=== PATIENT | male | born 1955 ===

== ENCOUNTER → 2020-04-16 11:09 | Outpatient (BNVA) | payer SELFPAY | PROVIDERS: PCP Internal Medicine; Visit Provider Internal Medicine | DX: Z02.79 Encounter for issue of other medical certificate (principal) ==

== ENCOUNTER → 2020-05-29 09:11 | Outpatient (BNVA) | payer OTHER, SELFPAY | PROVIDERS: PCP Internal Medicine; Visit Provider Internal Medicine Cardiovascular Disease | DX: I10 Essential (primary) hypertension (principal); Z79.899 Other long term (current) drug therapy | CPT/HCPCS: 93005; 99212 ==

== ENCOUNTER 2020-07-16 07:41 | Outpatient (REF) | payer OTHER, SELFPAY | END 2020-07-16 07:42 | disposition home or self-care (01) | LOC: HO.LAB 07:41 | PROVIDERS: Visit Provider Internal Medicine | DX: Z20.822 Contact with and (suspected) exposure to COVID-19 (principal) | CPT/HCPCS: 36415; C9803; U0003; U0005 ==

== ENCOUNTER 2020-10-30 10:02 | Outpatient (REF) | payer OTHER, SELFPAY ==
--- NOTE | ~2020-10-30 | XR_ITS ---
EXAMINATION: XR KNEE, LEFT CLINICAL INFORMATION: Left knee effusion. COMPARISON: Radiographs left knee 11/09/2017 TECHNIQUE: Four views of the left knee. FINDINGS: There is small to moderate suprapatellar effusion. Hoffa's fat pad appears normal. Bony mineralization appears within limits of normal. There is no fracture, dislocation, or destructive process. There is mild narrowing medial knee joint compartment with small marginal osteophyte medial femoral condyle. Axial view patella shows no joint narrowing or erosive change. There is small lateral patellar spur. XR/XR knee LT 4V IMPRESSION: 1. Small to moderate suprapatellar effusion. 2. Mild narrowing medial knee joint compartment with small osteophyte. No erosive change. 3. No destructive process
== END 2020-10-30 10:03 | disposition home or self-care (01) ==
LOC: HO.XRAY 10:02
PROVIDERS: PCP Internal Medicine; Referring Provider Internal Medicine; Visit Provider Registered Nurse
DX: M25.462 Effusion, left knee (principal)
CPT/HCPCS: 73564

== ENCOUNTER 2020-11-05 09:01 | Outpatient (REF) | payer OTHER, SELFPAY ==
--- NOTE | ~2020-11-05 | XR_ITS ---
EXAMINATION: XR CHEST CLINICAL INFORMATION: Cough. COMPARISON: Most recent chest radiograph dated 11/12/2019. TECHNIQUE: 2 views of the chest were obtained. FINDINGS: The lungs are clear. The cardiomediastinal silhouette is normal in size. There is no pleural effusion or pneumothorax. No acute osseous abnormality. XR/XR chest 2V IMPRESSION: No acute cardiopulmonary findings.
== END 2020-11-05 09:02 | disposition home or self-care (01) ==
LOC: HO.XRAY 09:01
PROVIDERS: PCP Internal Medicine; Visit Provider Emergency Medicine
DX: R05 Cough (principal)
CPT/HCPCS: 71046

== ENCOUNTER → 2020-12-01 13:17 | Outpatient (BNVA) | payer OTHER, SELFPAY | PROVIDERS: PCP Internal Medicine; Visit Provider Nurse Practitioner Family | DX: I45.2 Bifascicular block (principal); I10 Essential (primary) hypertension | CPT/HCPCS: 93005; 99212 ==

== ENCOUNTER 2020-12-05 09:14 | Outpatient (REF) | payer OTHER, SELFPAY ==
[2020-12-05 10:43] LABS: Anion Gap 11 (12-20); Blood Urea Nitrogen 20 mg/dL (9-16); Calcium 9.6 mg/dL (8.4-10.2); Carbon Dioxide 35 mmol/L (22-29); Chloride 101 mmol/L (96-108); Estimated Glomerular Filt Rate 57; Glucose Random 110 mg/dL (60-115); Potassium 3.3 mmol/L (3.3-5.1); Sodium 144 mmol/L (135-145)
== END 2020-12-05 09:15 | disposition home or self-care (01) ==
LOC: HO.LAB 09:14
PROVIDERS: PCP Internal Medicine; Visit Provider Nurse Practitioner Family
DX: I10 Essential (primary) hypertension (principal)
CPT/HCPCS: 36415; 80048

== ENCOUNTER → 2021-01-13 13:09 | Outpatient (BNVA) | payer OTHER, SELFPAY | PROVIDERS: PCP Internal Medicine; Referring Provider Internal Medicine; Visit Provider Surgery Vascular Surgery | DX: I83.11 Varicose veins of right lower extremity with inflammation (principal) | CPT/HCPCS: 99202 ==

== ENCOUNTER 2021-01-22 12:42 | Outpatient (REF) | payer OTHER, SELFPAY ==
--- NOTE | ~2021-01-22 | US_ITS ---
EXAMINATION: BILATERAL LOWER EXTREMITY VENOUS ULTRASOUND (Reflux Exam) CLINICAL INDICATION: Bilateral lower extremity varicose veins with insufficiency. COMPARISON: Left lower extremity venous Doppler ultrasound on 03/24/2017. TECHNIQUE: Color flow triplex imaging and compression Doppler was performed to evaluate both the deep and the superficial systems bilaterally. To evaluate the superficial system, the examination was performed in the upright position. Color-flow Doppler ultrasound and compression ultrasound were utilized. In addition, maneuvers were utilized to demonstrate reflux. FINDINGS: 1. DEEP VENOUS ULTRASOUND OF THE RIGHT LOWER EXTREMITY: Common Femoral Vein: Compressible, normal respiratory variation and augmented flow. Femoral vein: Compressible, normal color flow and augmentation. Popliteal Vein: Compressible, normal augmentation. Deep Reflux: There is no evidence of reflux in the deep system in either the common femoral vein or the popliteal vein. There is no evidence of a Carnes's cyst. 2. SUPERFICIAL ULTRASOUND WITH DOPPLER OF RIGHT LOWER EXTREMITY GREAT SAPHENOUS VEIN: The great saphenous vein ranges in size from 1 mm at the ankle to 7 mm at the saphenofemoral junction. There is no evidence of reflux. DUPLICATED GREAT SAPHENOUS VEIN: None SMALL SAPHENOUS VEIN: Saphenopopliteal junction: 0.2 cm; No evidence of reflux. Mid calf: 0.2 cm; No evidence of reflux. Distal calf: 0.2 cm; No evidence of reflux. VEIN OF GIACOMINI: None Imaged. PERFORATORS: None Imaged VARICOSITIES: Mid thigh, 0.3 cm, no reflux Proximal calf, 0.3 cm, no reflux Distal calf, 0.3 cm, no reflux 3. DEEP VENOUS ULTRASOUND OF THE LEFT LOWER EXTREMITY: Common Femoral Vein: Compressible, normal respiratory variation and augmented flow. Femoral vein: Compressible, normal color flow and augmentation. Popliteal Vein: Compressible, normal augmentation. Deep Reflux: There is no evidence of reflux in the deep system in either the common femoral vein or the popliteal vein. There is no evidence of a Carnes's cyst. 4. SUPERFICIAL ULTRASOUND WITH DOPPLER OF LEFT LOWER EXTREMITY GREAT SAPHENOUS VEIN: Great saphenous vein ranges in size from 2 mm at the ankle to 6 mm at the junction. There is segmental reflux below the knee measuring up to 3.3 seconds. DUPLICATED GREAT SAPHENOUS VEIN: Medial, 0.4 cm at the junction without evidence of reflux. SMALL SAPHENOUS VEIN: Saphenopopliteal junction: 0.2 cm; No evidence of reflux. Mid calf: 0.1 cm; No evidence of reflux. Distal calf: 0.1 cm; No evidence of reflux. VEIN OF GIACOMINI: None Imaged. PERFORATORS: Distal calf, 0.2 cm, no reflux. VARICOSITIES: Midcalf, 0.6 cm, no reflux. US/US venous duplex LE BI IMPRESSION: Segmental reflux involving the left great saphenous vein below the knee. Bilateral nonrefluxing varicosities. No evidence of DVT or deep venous insufficiency.
== END 2021-01-22 12:43 | disposition home or self-care (01) ==
LOC: HO.US 12:42
PROVIDERS: PCP Internal Medicine; Visit Provider Surgery Vascular Surgery
DX: I83.893 Varicose veins of bilateral lower extremities with other complications (principal)
CPT/HCPCS: 93970

== ENCOUNTER 2021-02-08 22:41 | Emergency (ER) | payer OTHER, SELFPAY ==
[2021-02-08 22:49] VITALS: BP 171/98; PULSE 69; RESP 16; TEMP 36.6; O2SAT 99; BMI 24.3
--- NOTE | 2021-02-08 23:50 | ED_ITS ---
HPI - General Adult General Chief complaint: General Medical Stated complaint: high blood pressure Time Seen by Provider: 02/08/21 23:50 Source: patient Mode of arrival: ambulatory Limitations: no limitations History of Present Illness HPI narrative: Patient has history of hypertension for a long time used to be on lisinopril 40 mg and amlodipine 5 mg blood pressure was uncontrolled for perinatal coordinator change the medication to losartan 50 mg daily metoprolol 25 mg and spironolactone but patient still blood pressure is uncontrolled check the blood pressure at home was 164/102 on arrival was 171/98 complaining of mild discomfort in the head for last few hours no nausea no vomiting no chest pain or palpitation Related Data Home Medications Medication Instructions Recorded Confirmed metoprolol succinate 25 mg 25 mg PO DAILY 05/29/20 12/01/20 tablet,extended release 24 hr omeprazole 20 mg capsule,delayed 20 mg PO DAILY 05/29/20 12/01/20 release baclofen 10 mg tablet 10 mg PO BID PRN 12/01/20 12/01/20 chlorthalidone 25 mg tablet 25 mg PO DAILY 12/01/20 12/01/20 lisinopril 40 mg tablet 40 mg PO DAILY 12/01/20 12/01/20 Previous Rx's Medication Instructions Recorded losartan 25 mg tablet 25 mg PO QPM #30 tab 02/09/21 Allergies Allergy/AdvReac Type Severity Reaction Status Date / Time No Known Allergies Allergy Verified 02/08/21 22:49 [No Known Allergies*] Review of Systems Review of Systems: Yes all other systems are reviewed and are negative [facility] Past Medical History Medical History Bifascicular block Hypertension Lymphoma Family History Family History Mother Recurrent strokes Father Heart disease History of throat cancer Social History Social History Alcohol intake: current Alcohol intake frequency: holidays/special occasions only Patient Tobacco Use Status: Never used Tobacco Advance Directives: No Physical Exam Vital Signs: Vital Signs: Last Vital Signs Temp 97.9 F 02/08/21 22:49 Pulse 53 02/09/21 01:00 Resp 18 02/09/21 01:00 BP 161/93 H 02/09/21 01:00 Pulse Ox 98 02/09/21 00:26 Body Mass Index 24.3 Appearance: Alert. Oriented X3. No acute distress. Eyes: No pallor or icterus ENT: Pharynx normal. Oral Mucosa moist Neck: Normal inspection. Neck supple. CVS: Normal heart rate and rhythm. Pulses normal. Respiratory: No respiratory distress. Equal air entry bilateral, no wheezing/rales/rhonchi Abdomen: Soft and nontender. Bowel sounds are present, no mass palpable, Skin: Skin warm and dry. Normal skin color. Normal skin turgor. Extremities: No lower extremity edema. No calf tenderness Neuro: Oriented X 3. Course Reevaluation(s) Reevaluation #1: Patient feeling much better now blood pressure improved to 151/95 after losartan 25 mg. Will increase the dose of losartan to 50 in the morning 25 in the p.m. and advised to follow with perinatal coordinator Time: 01:04 Discharge Plan Discharge Clinical Impression: Hypertension Qualifiers: Hypertension type: primary hypertension Qualified Code(s): I10 - Essential (primary) hypertension Patient Disposition: Home, Self-Care Instructions: Hypertension (ED) Additional Instructions: Increase the dose of losartan to 50 mg in the morning and 25 mg in the evening Continue remaining medication as prescribed Follow-up with your perinatal coordinator for further management of high blood pressure in next 1 week Aumentar la dosis de losart?n a 50 mg por la ma?phi y 25 mg por la noche. Contin?e con la medicaci?n restante seg?n lo prescrito Dinorah un seguimiento con baca nefr?logo para un mayor control de la presi?n arterial henny en la pr?xima semana Prescriptions: New losartan 25 mg tablet 25 mg PO QPM Qty: 30 RF: 0 No Action metoprolol succinate 25 mg tablet extended release 24 hr 25 mg PO DAILY RF: 0 omeprazole 20 mg capsule,delayed release(DR/EC) 20 mg PO DAILY RF: 0 chlorthalidone 25 mg tablet 25 mg PO DAILY RF: 0 lisinopril 40 mg tablet 40 mg PO DAILY RF: 0 baclofen 10 mg tablet 10 mg PO BID PRN (Reason: muscle spasm) RF: 0 Print Language: Brazilian
[2021-02-09 00:26] VITALS: BP 151/95; PULSE 61; RESP 14; O2SAT 98
[2021-02-09 00:28] VITALS: BP 151/95; PULSE 60
[2021-02-09] MEDS: Losartan Potassium 25 MG TABLET PO (00:28)
[2021-02-09 01:00] VITALS: BP 161/93; PULSE 53; RESP 18
[2021-02-09 01:53] VITALS: BP 151/94; PULSE 53; RESP 14; O2SAT 98
== END 2021-02-09 01:58 | disposition home or self-care (01) ==
PROVIDERS: Emergency Provider Internal Medicine; PCP Internal Medicine
DX: I10 Essential (primary) hypertension (principal); Z79.899 Other long term (current) drug therapy
CPT/HCPCS: 99283; 99284

== ENCOUNTER → 2021-02-10 14:07 | Outpatient (BNVA) | payer OTHER, SELFPAY | PROVIDERS: PCP Internal Medicine; Visit Provider Surgery Vascular Surgery | DX: I83.11 Varicose veins of right lower extremity with inflammation (principal) | CPT/HCPCS: 99212 ==

== ENCOUNTER → 2021-03-30 14:02 | Outpatient (BNVA) | payer OTHER, SELFPAY | PROVIDERS: PCP Internal Medicine; Referring Provider Internal Medicine; Visit Provider Internal Medicine Cardiovascular Disease | DX: I45.2 Bifascicular block (principal); I10 Essential (primary) hypertension | CPT/HCPCS: 93005; 99212 ==

== ENCOUNTER → 2021-04-14 08:40 | Outpatient (BNVA) | payer SELFPAY | PROVIDERS: PCP Internal Medicine; Visit Provider Internal Medicine | DX: Z02.79 Encounter for issue of other medical certificate (principal) ==

== ENCOUNTER 2021-08-10 10:57 | Emergency (ER) | payer OTHER, SELFPAY ==
[2021-08-10 13:33] VITALS: BP 169/95; PULSE 61; RESP 16; TEMP 36.9; O2SAT 98; BMI 24.6
[2021-08-10 14:16] LABS: COVID-19 Test Negative (Negative); IDNOW Serial# 16C4AD1C
[2021-08-10 14:38] LABS: IDNOW Serial# 16C4AD1C; Influenza A Negative (Negative); Influenza B2 Negative (Negative)
--- NOTE | 2021-08-10 14:46 | ED_ITS ---
HPI - URI/Sore Throat General Chief Complaint: General Medical Stated Complaint: Earache/ Sore throat Time Seen by Provider: 08/10/21 14:17 Source: patient Mode of arrival: ambulatory Limitations: language barrier (Yakut-speaking) History of Present Illness HPI Narrative: 66-year-old male presenting to the ED with complaints of 4 days of subjective fevers, chills, fatigue, malaise, body aches, left-sided ear pain, right-sided ear itchiness and a sore throat. Reports that he is vaccinated to COVID. Denies recent travel or sick contacts. Denies any measured fevers, dizziness, headaches, neck pain/stiffness, trouble swallowing or breathing, loss of taste or smell, sputum production, chest pain or shortness of breath, dyspnea on exertion, orthopnea, nausea/vomiting/diarrhea constipation, black or bloody stools, abdominal pain, rashes, lower extremity edema or calf tenderness or any other symptoms complaints or concerns at this time. MD elicited complaint: fever and sore throat Onset (ago): day(s) (4) Consistency: constant and progressively worsening Severity: moderate Able to tolerate fluids by mouth: Yes Exacerbating factors: swallowing Relieving factors: nothing Associated symptoms: fever, chills, myalgias, sore throat, cough and ear pain Treatments prior to arrival: none Related Data Home Medications Medication Instructions Recorded Confirmed metoprolol succinate 25 mg 25 mg PO DAILY 05/29/20 03/30/21 tablet,extended release 24 hr omeprazole 20 mg capsule,delayed 20 mg PO DAILY 05/29/20 03/30/21 release baclofen 10 mg tablet 10 mg PO BID PRN 12/01/20 03/30/21 losartan 50 mg tablet 1 tab PO DAILY 02/09/21 03/30/21 spironolactone 25 0.5 tab PO DAILY tab 03/30/21 03/30/21 mg-hydrochlorothiazide 25 mg tablet Previous Rx's Medication Instructions Recorded losartan 25 mg tablet 25 mg PO QPM #30 tab 02/09/21 amoxicillin 875 mg-potassium 1 tab PO BID 7 Days #14 tab 08/10/21 clavulanate 125 mg tablet Allergies Allergy/AdvReac Type Severity Reaction Status Date / Time vitamin E (d-alpha Allergy Itching Verified 08/10/21 13:35 tocopherol) Review of Systems Review of Systems: Constitutional : + subjective fevers/ chills/fatigue/malaise, No Weight loss, No Night Sweats ENT/Mouth : + sore throat, + right-sided ear itchiness and left-sided ear pain, No Hearing loss, No Nasal Congestion, No Sinus Pain, No Hoarseness, No Rhinorrhea, No Swallowing Difficulty Eyes: No Eye Pain, No Swelling, No Redness, No Foreign Body, No Discharge, No Vision Changes Cardiovascular : No Chest Pain, No SOB, No Dyspnea on Exertion, No Orthopnea, No Edema, No Palpitations Respiratory : + Cough, No Sputum, No Wheezing, No Smoke Exposure, No Dyspnea Gastrointestinal : No Nausea, No Vomiting, No Diarrhea, No Constipation, No abdominal Pain, No Hematochezia, No Melena Genitourinary : no irregular bleeding, No Dysuria, No Urinary Frequency, No Hematuria, No Urinary Incontinence, No Urgency, No Flank Pain, No Urinary Flow Changes, No Hesitancy Musculoskeletal : No joint pain, + Myalgias, No Joint Swelling Skin : No Skin Lesions, No rash Neuro : No Weakness, No Numbness, No Paresthesias, No Loss of Consciousness, No Dizziness, No Headache Psych : No Anxiety/Panic, No Depression, No SI/HI/AH/VH, No Social Issues, Heme/Lymph: No Bruising, No Bleeding,No Lymphadenopathy Endocrine : No Polyuria, No Polydipsia, No Temperature Intolerance Yes all other systems are reviewed and are negative [facility] Past Medical History Attestation statement: The following information was validated with the patient. Medical History Bifascicular block Hypertension Lymphoma Surgical History No pertinent past surgical history Family History Family History Mother Recurrent strokes Father Heart disease History of throat cancer Social History Social History Alcohol intake: current Alcohol intake frequency: holidays/special occasions only Patient Tobacco Use Status: Never used Tobacco Advance Directives: No Advance Directives Information Provided: No Physical Exam Vital Signs: Vital Signs: Last Vital Signs Temp 98.5 F 08/10/21 13:33 Pulse 61 08/10/21 13:33 Resp 16 08/10/21 13:33 BP 169/95 H 08/10/21 13:33 Pulse Ox 98 08/10/21 13:33 BMI result Body Mass Index 24.6 vital signs have been reviewed as normal and appeared to be correct. Blood pressure 169/95. Heart rate normal. Respiration rate normal. Temperature normal. Oxygen saturation normal. Appearance: Alert. Oriented X3. No acute distress. Head: Normal external exam. Normocephalic. Atraumatic. Eyes: PERRLA. EOMI. Conjunctiva and sclera normal. Eyelids normal. ENT: EAC normal. TM's Normal. Posterior pharynx mildly erythematous. Soft and hard palate within normal limits. No exudate is noted. Uvula is midline not deviated. Moist mucous membranes. No lesions/ulcerations or masses noted on the tongue. Normal voice. No trismus noted. No drooling noted. No muffled voice noted. Neck: Normal inspection. Neck supple. FROM. No adenopathy. Thyroid Normal. No tracheal deviation noted. No crepitus is noted. No meningeal signs. No neck mass noted. No signs of trauma noted. CVS: Normal heart rate and rhythm. Heart sound normal. Pulses normal throughout. No murmurs/rales/gallops. Respiratory: No respiratory distress. Painless inspiration. Breath sounds normal. No wheezes/rales/rhonchi noted. Chest nontender. No crepitus is noted. No signs of trauma noted. No accessory muscle usage noted or decreased air movement noted. No signs of trauma. Back: Full range of motion noted. Nontender. Skin: Skin warm and dry. Normal skin color. Normal skin turgor. No rashes/lesions/lacerations noted. Extremities: Extremities exhibit normal range of motion and nontender. Neuro: Oriented X 3. No motor deficit. No sensory deficit. Reflexes normal. Normal steady gait. No focal neuro deficits noted. CN's II-XII intact bilaterally? Vascular: + radial pulses Normal cap refill. No cyanosis noted to upper extremity nails Course Course Course Narrative: 66-year-old male presenting to the ED with complaints of 4 days of subjective fevers, chills, fatigue, malaise, body aches, left-sided ear pain, right-sided ear itchiness and a sore throat. Reports that he is vaccinated to COVID. Denies recent travel or sick contacts. Denies any measured fevers, dizziness, headaches, neck pain/stiffness, trouble swallowing or breathing, loss of taste or smell, sputum production, chest pain or shortness of breath, dyspnea on exertion, orthopnea, nausea/vomiting/diarrhea constipation, black or bloody sto ols, abdominal pain, rashes, lower extremity edema or calf tenderness or any other symptoms complaints or concerns at this time. Patient negative for COVID and flu. Will test for strep and treat for upper respiratory infection/pharyngitis possibly. Along with instructions return if any new or worsening symptoms to follow up with primary care provider. And to return if any new or worsening symptoms. Patient understands agrees with this plan. MDM - URI/Sore Throat Medical Records Attestation: I reviewed the patient's medical records. Lab Data Attestation: I reviewed the patient's lab results. Labs: Lab Results 08/10/21 08/10/21 Range/Units 13:39 13:39 COVID-19 ([facility]) Negative (Negative) COVID-19 Clin Com See Note Influenza Type A ([facility]) Negative (Negative) Influenza Type B ([facility]) Negative (Negative) Influenza A & B Note See Note Discharge Plan Discharge Clinical Impression: Pharyngitis Patient Disposition: Home, Self-Care Instructions: Pharyngitis (ED) Prescriptions: New amoxicillin-pot clavulanate 875-125 mg tablet 1 tab PO BID 7 Days Qty: 14 0RF No Action losartan 25 mg tablet 25 mg PO QPM Qty: 30 0RF losartan 50 mg tablet 1 tab PO DAILY 0RF spironolacton-hydrochlorothiaz 25-25 mg tablet 0.5 tab PO DAILY 0RF metoprolol succinate 25 mg tablet extended release 24 hr 25 mg PO DAILY 0RF omeprazole 20 mg capsule,delayed release(DR/EC) 20 mg PO DAILY 0RF baclofen 10 mg tablet 10 mg PO BID PRN (Reason: muscle spasm) 0RF Referrals: Julio Egan MD [Primary Care Provider] - Print Language: Yakut
[2021-08-10 15:20] LABS: Strep A Nucleic Acid Negative (Negative)
== END 2021-08-10 15:04 | disposition home or self-care (01) ==
PROVIDERS: Physician Assistant Medical; Emergency Provider Emergency Medicine; PCP Internal Medicine
DX: J02.9 Acute pharyngitis, unspecified (principal); H92.02 Otalgia, left ear; R50.9 Fever, unspecified; M79.10 Myalgia, unspecified site; Z20.822 Contact with and (suspected) exposure to COVID-19; Z79.899 Other long term (current) drug therapy
CPT/HCPCS: 36415; 87502; 87635; 87651; 99283

== ENCOUNTER 2021-12-30 09:43 | Outpatient (REF) | payer OTHER, SELFPAY ==
--- NOTE | ~2021-12-30 | XR_ITS ---
EXAMINATION: XR CHEST CLINICAL INFORMATION: Acute cough. COMPARISON: Chest 11/05/2020 TECHNIQUE: 2 views of the chest were obtained. FINDINGS: No significant abnormality is noted involving the heart, lungs, mediastinum, bony thorax or soft tissues. XR/XR chest 2V IMPRESSION: Unremarkable chest exam. No change from 11/05/2020
== END 2021-12-30 09:44 | disposition home or self-care (01) ==
LOC: HO.XRAY 09:43
PROVIDERS: Absent Provider Internal Medicine; PCP Internal Medicine; Visit Provider Nurse Practitioner Primary Care
DX: R05.1 Acute cough (principal)
CPT/HCPCS: 71046

== ENCOUNTER → 2022-03-31 13:26 | Outpatient (BNVA) | payer OTHER, SELFPAY | PROVIDERS: PCP Internal Medicine; Referring Provider Internal Medicine; Visit Provider Internal Medicine Cardiovascular Disease | DX: I45.2 Bifascicular block (principal); I10 Essential (primary) hypertension | CPT/HCPCS: 93005; 99212 ==

== ENCOUNTER → 2022-04-12 10:49 | Outpatient (BNVA) | payer SELFPAY | PROVIDERS: PCP Internal Medicine; Visit Provider Internal Medicine | DX: Z02.79 Encounter for issue of other medical certificate (principal) ==

== ENCOUNTER 2022-06-30 11:38 | Inpatient (IN) | payer OTHER, SELFPAY ==
--- NOTE | ~2022-06-30 | CT_ITS ---
EXAMINATION: CT ABDOMEN AND PELVIS WITHOUT CONTRAST CLINICAL INFORMATION: Left-sided abdominal pain COMPARISON: 02/17/2019 TECHNIQUE: Multidetector volumetric imaging was performed from the superior aspect of the liver through the pubic symphysis. Sagittal and coronal reformatted images were obtained on the technologist's workstation. This CT examination was performed using dose optimization techniques as appropriate, variously including the following: *Automated exposure control *Adjustment of mA and/or kV according to patient size (this includes techniques or standardized protocols for targeted exams where dose is matched to indication/reason for exam; i.e. extremities or head) *Use of iterative reconstruction technique DLP: 415 mGy-cm FINDINGS: LUNG BASES: The visualized lung bases are unremarkable. LIVER, GALLBLADDER, AND BILIARY TREE: The superior aspect the liver is not imaged. Otherwise small low-density structure seen centrally near the robin. There was a small density seen here previously. This may be an enlarging cyst. The lesion cannot be completely excluded. Measures 7 mm. Status post cholecystectomy PANCREAS: Unremarkable. SPLEEN: Unremarkable. ADRENAL GLANDS: Unremarkable. KIDNEYS AND URETERS: 6 mm calculus in the proximal left ureter. This is not causing significant obstruction of the kidney. BLADDER: Unremarkable. GASTROINTESTINAL TRACT: The bowel pattern appears nonobstructing. The appendix is within normal limits. ABDOMINAL WALL: No significant hernia is appreciated. LYMPH NODES: Some shotty nodes once again seen here. No evidence for bulky adenopathy. Mildly prominent mesenteric nodes. VASCULAR: Mild atherosclerotic changes PELVIC VISCERA: Prominent prostate with calcifications. OSSEOUS STRUCTURES: Unremarkable. CT/CT abdomen pelvis wo IV con IMPRESSION: Findings as described above. 6 mm calculus within the proximal left ureter. This is not causing significant obstruction. The bowel pattern is felt to be nonobstructing. There is no free fluid here. No suspicious soft tissue stranding is noted. Fleischner guidelines were followed.
--- NOTE | ~2022-06-30 | FL_ITS ---
EXAMINATION: XR FLUOROSCOPY WITH IMAGES CLINICAL INFORMATION: Cystoscopy, ureteroscopy, laser, possible stent. Left urinary tract calculus. COMPARISON: CT abdomen and pelvis noncontrast 06/30/2022. TECHNIQUE: Fluoroscopy Supervised By: Dr. Thony Walker. Fluoroscopy Time: 16 seconds. Cumulative Dose: 3.37 mGy. Images: 2. FINDINGS: Initial image shows guidewire in the left collecting system with some contrast showing no hydronephrosis or extravasation. Follow-up image shows left stent overlying left renal fossa. FL/FL guidance in OR IMPRESSION: Fluoroscopy for urologic procedures.
[2022-06-30 11:55] VITALS: BP 121/90; PULSE 86; RESP 16; TEMP 36.5; O2SAT 99; BMI 22.8
--- NOTE | 2022-06-30 11:55 | ED.NAVMDI ---
HPI - Nausea/Vomiting/Diarrhea General Chief complaint: Nausea/Vomiting/Diarrhea <ISH Reyes Last Filed: 06/30/22 18:54> Stated complaint: Cough/Diarrhea/Abd pain <ISH Reyes Last Filed: 06/30/22 18:54> Time Seen by Provider: 06/30/22 14:24 <ISH Reyes Last Filed: 06/30/22 18:54> Source: patient <ISH Malagon Last Filed: 06/30/22 17:09> Mode of arrival: ambulatory <ISH Malagon Last Filed: 06/30/22 17:09> History of Present Illness HPI Narrative: 66-year-old male with a past medical history of hypertension, lymphoma, presenting to the ED complaining of URI symptoms since Tuesday taking Zyrtec without relief, followed by nausea, lower abdominal pain, & watery nonbloody diarrhea since Tuesday. Reports 2-3 episodes daily with anorexia and decreased p.o. intake. Admit saw PCP on Tuesday who prescribed Azithromycin which did not help symptoms. Denies fever, chills, dysuria/hematuria, flank pain, suspicious food intake, sick contacts <ISH Malagon Last Filed: 06/30/22 17:09> MD elicited complaint: nausea, diarrhea and abdominal pain <ISH Malagon Last Filed: 06/30/22 17:09> Related Data Home medications: Home Medications Medication Instructions Recorded Confirmed omeprazole 20 mg capsule,delayed 20 mg PO DAILY 05/29/20 06/30/22 release losartan 100 mg tablet 100 mg PO DAILY 03/31/22 06/30/22 metoprolol succinate 100 mg 100 mg PO DAILY 03/31/22 06/30/22 tablet,extended release 24 hr nifedipine 30 mg tablet,extended 30 mg PO DAILY 03/31/22 06/30/22 release spironolactone 25 mg tablet 25 mg PO DAILY 03/31/22 06/30/22 ammonium lactate 12 % topical cream 1 appl topical NEEDED PRN Dry 06/30/22 06/30/22 Skin azithromycin 250 mg tablet 250 mg PO DAILY 06/30/22 06/30/22 cetirizine 10 mg tablet 1 tab PO DAILY PRN itch 06/30/22 06/30/22 cholecalciferol (vitamin D3) 25 25 mcg PO DAILY 06/30/22 06/30/22 mcg (1,000 unit) tablet magnesium 200 mg tablet 200 mg PO DAILY 06/30/22 06/30/22 multivitamin (Daily Multi-Vitamin 1 tab PO DAILY 06/30/22 06/30/22 tablet) <ISH Reyes - Last Filed: 06/30/22 18:54> Allergies/Adverse reactions: Allergies Allergy/AdvReac Type Severity Reaction Status Date / Time vitamin E (d-alpha Allergy Itching Verified 06/30/22 12:00 tocopherol) <ISH Reyes Last Filed: 06/30/22 18:54> Review of Systems Review of Systems: Constitutional:No Fever, No Chills, No Night Sweats, No Fatigue, No Malaise ENT/Mouth: No Hearing loss, No Ear Pain, No No sore throat, No Rhinorrhea, No Swallowing Difficulty Eyes: No Eye Pain, No Swelling, No Redness Cardiovascular: No Chest Pain, No SOB, No Edema, No Palpitations Respiratory: No Cough, No Sputum, No Dyspnea Gastrointestinal: + Nausea, No Vomiting, + Diarrhea, No Constipation, + Abdominal pain, No Hematochezia, No Melena Genitourinary: No Dysuria, No Urinary Frequency, No Hematuria, No Urinary Incontinence/retention, No Urgency, No Flank Pain, No Urinary Flow Changes Musculoskeletal: No joint pain, No Myalgias, No Joint Swelling Skin: No Skin Lesions, No rash Neuro: No Weakness, No Numbness, No Loss of Consciousness, No Dizziness, No Headache <ISH Malagon Last Filed: 06/30/22 17:09> Yes all other systems are reviewed and are negative <ISH Malagon Last Filed: 06/30/22 17:09> Constitutional: Constitutional: Reports as per HPI <ISH Malagon Last Filed: 06/30/22 17:09> PMFSH Past Medical History Attestation statement: The following information was validated with the patient. <ISH Malagon Last Filed: 06/30/22 17:09> Medical History: Medical History Bifascicular block Hypertension Lymphoma <ISH Reyes - Last Filed: 06/30/22 18:54> Surgical History: Surgical History No pertinent past surgical history <ISH Reyes - Last Filed: 06/30/22 18:54> Family History Family History: Family History Mother Recurrent strokes Father Heart disease History of throat cancer <ISH Reyes - Last Filed: 06/30/22 18:54> Social History Social History: Social History Alcohol intake: unknown Patient Tobacco Use Status: Never used Tobacco Smoked in Last 30 Days: No Use of substances other than those prescribed or required for medical reasons: Unknown Advance Directives: No Advance Directives Information Provided: No <ISH Reyes - Last Filed: 06/30/22 18:54> Physical Exam Vital Signs: Vital Signs: Last Vital Signs Temp 97.7 F 06/30/22 11:55 Pulse 86 06/30/22 11:55 Resp 16 06/30/22 11:55 BP 121/90 H 06/30/22 11:55 Pulse Ox 99 06/30/22 11:55 O2 Del Method 06/30/22 11:55 BMI result Body Mass Index 22.8 <ISH Reyes - Last Filed: 06/30/22 18:54> Vital Signs: Last Vital Signs Temp 97.7 F 06/30/22 11:55 Pulse 86 06/30/22 11:55 Resp 16 06/30/22 11:55 BP 121/90 H 06/30/22 11:55 Pulse Ox 99 06/30/22 11:55 O2 Del Method 06/30/22 11:55 BMI result Body Mass Index 22.8 <ISH Malagon - Last Filed: 06/30/22 17:09> Const: General: cooperative, healthy appearing and no acute distress <ISH Malagon - Last Filed: 06/30/22 17:09> Orientation/consciousness: patient oriented x3 <ISH Malagon Last Filed: 06/30/22 17:09> Limitations: no limitations <Akilah Vanebay PA - Last Filed: 06/30/22 17:09> HEENT: Head: Yes normal to inspection and Yes atraumatic <Akilah Vanebay PA - Last Filed: 06/30/22 17:09> Ears: hearing grossly normal bilaterally <Akilah Davis PA - Last Filed: 06/30/22 17:09> General nose exam: Normal external nose present <Akilah Davis PA - Last Filed: 06/30/22 17:09> Face and sinus: Yes normal facial exam <Akilah Davis PA - Last Filed: 06/30/22 17:09> Eyes: General: appearance normal, both eyes and all related structures <Akilah Davis PA - Last Filed: 06/30/22 17:09> EOM: EOMs intact bilaterally <kAilah Davis PA - Last Filed: 06/30/22 17:09> Neck: Neck: Yes normal visual inspection and Yes no meningeal signs <Akilah Davis PA - Last Filed: 06/30/22 17:09> Resp: Effort & Inspection: normal respiratory effort and no respiratory distress <Akilah Davis PA - Last Filed: 06/30/22 17:09> Auscultation: clear to auscultation bilaterally, no crackles and no rhonchi <Akilah Davis PA - Last Filed: 06/30/22 17:09> Cardio: Rate: regular rate <Akilah Davis PA - Last Filed: 06/30/22 17:09> Heart sounds: S1 normal heart sound present and S2 normal heart sound present <Akilah Davis PA - Last Filed: 06/30/22 17:09> GI: Inspection: Yes normal to inspection <Akilah Davis PA - Last Filed: 06/30/22 17:09> Palpation (GI): Soft to palpation, Tenderness to palpation present (GI) in the LLQ; with no rebound tenderness, no guarding and not rigid <Akilah Davis PA - Last Filed: 06/30/22 17:09> : General: Yes no CVA tenderness <ISH Malagon - Last Filed: 06/30/22 17:09> Back/Spine/Pelvis: Back: no CVA tenderness <ISH Malagon - Last Filed: 06/30/22 17:09> Skin: Rashes: no rashes <ISH Malagon - Last Filed: 06/30/22 17:09> Wounds: no wounds <ISH Malagon - Last Filed: 06/30/22 17:09> Neuro: General: patient oriented x3, tone normal and no meningeal signs <ISH Malagon Last Filed: 06/30/22 17:09> Gait exam (Neuro): Normal gait present <ISH Malagon Last Filed: 06/30/22 17:09> Extrem: General: Yes normal to inspection <ISH Malagon Last Filed: 06/30/22 17:09> Course Course Course Narrative: RME - 66 yo Italian speaking male presents to the ER for evaluation of 5 days of watery diarrhea, about 6 episodes her day. He was given abx for the diarrhea by his doctor 3 days ago. Reports intermittent diffuse abd pains, no nausea or vomiting. He feels weak. Plan: labs, GI panel/Cdiff if able, CT abd/pelvis given left sided tenderness on exam in triage. <ISH Reyes - Last Filed: 06/30/22 18:54> RME - 66 yo Italian speaking male presents to the ER for evaluation of 5 days of watery diarrhea, about 6 episodes her day. He was given abx for the diarrhea by his doctor 3 days ago. Reports intermittent diffuse abd pains, no nausea or vomiting. He feels weak. Plan: labs, GI panel/Cdiff if able, CT abd/pelvis given left sided tenderness on exam in triage. -1545--no leukocytosis. H&H stable. + FLORESITA with a BUN of 27 and creatinine of 1.59. Mild transaminitis. CT abdomen pelvis wo IV con IMPRESSION: Findings as described above. 6 mm calculus within the proximal left ureter. This is not causing significant obstruction. ? The bowel pattern is felt to be nonobstructing. There is no free fluid here. No suspicious soft tissue stranding is noted.? ? Fleischner guidelines were followed. > will consult Urology, Dr. Walker who recommended rehydration and re-evaluate patient's status. If no improvement admit to Medicine and Urology can perform procedure tomorrow -1704--Dr. Walker evaluated patient in the ED & recommends admission and likely procedure tomorrow. NPO at midnight <ISH Malagon - Last Filed: 06/30/22 17:09> Medications Administered Discontinued Medications Generic Name Dose Route Start Last Admin Trade Name Freq PRN Reason Stop Dose Admin Lactated Ringer's 1,000 mls @ 999 mls/hr 06/30/22 14:45 06/30/22 15:51 Lr IV 06/30/22 15:45 Infused .Q1H1M FARAZ Infusion Lactated Ringer's 1,000 mls @ 999 mls/hr 06/30/22 14:45 06/30/22 17:38 Lr IV 06/30/22 15:45 Infused .Q1H1M FARAZ Infusion Ketorolac Tromethamine 15 mg 06/30/22 15:46 06/30/22 16:12 Ketorolac Tromethamine 15 Mg/Ml Vial IVPUSH 06/30/22 15:47 15 mg ONCE ONE Administration <ISH Reyes - Last Filed: 06/30/22 18:54> Medications Administered Discontinued Medications Generic Name Dose Route Start Last Admin Trade Name Freq PRN Reason Stop Dose Admin Lactated Ringer's 1,000 mls @ 999 mls/hr 06/30/22 14:45 06/30/22 15:51 Lr IV 06/30/22 15:45 Infused .Q1H1M FARAZ Infusion Lactated Ringer's 1,000 mls @ 999 mls/hr 06/30/22 14:45 06/30/22 17:38 Lr IV 06/30/22 15:45 Infused .Q1H1M FARAZ Infusion Ketorolac Tromethamine 15 mg 06/30/22 15:46 06/30/22 16:12 Ketorolac Tromethamine 15 Mg/Ml Vial IVPUSH 06/30/22 15:47 15 mg ONCE ONE Administration <ISH Malagon - Last Filed: 06/30/22 17:09> Medical Decision Making Medical Decision Making MDM Narrative: 66-year-old male with a past medical history of hypertension, lymphoma, presenting to the ED complaining of URI symptoms since Tuesday taking Zyrtec without relief, followed by nausea, lower abdominal pain, & watery nonbloody diarrhea since Tuesday. On exam vital signs stable, NAD, nontoxic appearing, abdomen soft with left lower quadrant tenderness, no rebound or guarding, no CVAT. Concern for viral syndrome/gastroenteritis vs diverticulitis or colitis vs metabolic abnormalities including dehydration. Rule out UTI. Lower suspicion for appendicitis/cholecystitis/lithiasis or pancreatitis at this time. C diff on differential Plan: Labs, UA, stool studies/C diff, CT AP, IVF, p.o. challenge Please refer to course for remaining clinical decision making, interpretation of labs/imaging results, and discussions with consultants and/or family members. <ISH Malagon - Last Filed: 06/30/22 17:09> Differential Diagnosis Differential Diagnoses: The differential diagnosis associated with the presentation includes <ISH Malagon - Last Filed: 06/30/22 17:09> as above <ISH Malagon - Last Filed: 06/30/22 17:09> Admission/Observation Consideration of admission/observation: Escalation of care including admission/observation considered <ISH Malagon - Last Filed: 06/30/22 17:09> Consult Healthcare Provider Management of the patient was discussed with: Acid Patroller <ISH Malagon - Last Filed: 06/30/22 17:09> Lab Data MDM Lab Attestation statement: I reviewed the patient's lab results. <ISH Malagon - Last Filed: 06/30/22 17:09> Result Diagrams: 06/30/22 12:12 06/30/22 12:12 <ISH Reyes - Last Filed: 06/30/22 18:54> Labs: Lab Results 06/30/22 06/30/22 06/30/22 Range/Units 12:12 12:12 16:01 WBC 5.9 (4.8-10.8) X10*3/uL RBC 4.72 (4.60-5.80) X10*6/uL Hgb 15.8 (14.0-18.0) g/dl Hct 45.1 (42.0-52.0) % MCV 95.6 (80.0-98.0) fL MCH 33.5 H (27.0-33.0) pg MCHC 35.0 (31.0-36.0) g/dl RDW 12.0 (11.0-16.0) % Plt Count 161 (160-400) X10*3/uL MPV 10.3 (9.4-12.4) fL Immature Gran % (Auto) 0.5 H (0.0-0.4) % Neut % (Auto) 53.9 (45-73) % Lymph % (Auto) 32.3 (20-40) % Ware % (Auto) 10.4 (2-11) % Eos % (Auto) 2.6 (0-4) % Baso % (Auto) 0.3 (0-2) % Lymph # (Auto) 1.9 (1.2-4.9) X10*3/uL Ware # (Auto) 0.6 (0.1-1.2) X10*3/uL Eos # (Auto) 0.2 (0.0-0.4) X10*3/uL Baso # (Auto) 0.0 (0.0-0.2) X10*3/uL Abs Immat Gran (auto) 0.03 (0.00-0.03) X10*3/uL Absolute Neuts (auto) 3.2 (2.0-8.3) x10*3/uL Absolute Nucleated RBC 0.000 (0.0-0.012) X10*3/uL Nucleated RBC % (auto) 0.0 (0.0-0.2) /100WBC Sodium 142 (135-145) mmol/L Potassium 4.2 D (3.3-5.1) mmol/L Chloride 108 (96-108) mmol/L Carbon Dioxide 26 (22-29) mmol/L Anion Gap 12 (12-20) BUN 27 H (9-16) mg/dL Creatinine 1.59 H (0.5-1.4) mg/dL Estim Creat Clear Calc 46.6 Estimated GFR 44 Random Glucose 107 (60-115) mg/dL Calcium 9.0 D (8.4-10.2) mg/dL Magnesium 1.7 (1.6-2.6) mg/dL Total Bilirubin 0.8 (0.0-1.0) mg/dL Direct Bilirubin 0.2 (0.0-0.5) mg/dL AST 39 H (5-37) U/L ALT 93 H (0-40) U/L Alkaline Phosphatase 88 (39-117) U/L Total Protein 7.4 (6.5-8.0) g/dL Albumin 4.2 (3.5-5.0) g/dL Lipase 11 (8-78) U/L Urine Color Yellow Urine Appearance Clear Urine pH 5.5 (5.0-9.0) Ur Specific [employer] 1.010 (1.005-1.025) Urine Protein Negative (Neg-Trace) mg/dL Urine Glucose (UA) Negative (Negative) mg/dL Urine Ketones Negative (Negative) mg/dL Urine Blood Negative (Negative) Urine Nitrite Negative (Negative) Ur Leukocyte Esterase Negative (Negative) C. difficile Tox B Gene (Negative) COVID-19 ([facility]) (Negative) COVID-19 Clin Com 06/30/22 06/30/22 Range/Units 16:01 17:17 WBC (4.8-10.8) X10*3/uL RBC (4.60-5.80) X10*6/uL Hgb (14.0-18.0) g/dl Hct (42.0-52.0) % MCV (80.0-98.0) fL MCH (27.0-33.0) pg MCHC (31.0-36.0) g/dl RDW (11.0-16.0) % Plt Count (160-400) X10*3/uL MPV (9.4-12.4) fL Immature Gran % (Auto) (0.0-0.4) % Neut % (Auto) (45-73) % Lymph % (Auto) (20-40) % Ware % (Auto) (2-11) % Eos % (Auto) (0-4) % Baso % (Auto) (0-2) % Lymph # (Auto) (1.2-4.9) X10*3/uL Ware # (Auto) (0.1-1.2) X10*3/uL Eos # (Auto) (0.0-0.4) X10*3/uL Baso # (Auto) (0.0-0.2) X10*3/uL Abs Immat Gran (auto) (0.00-0.03) X10*3/uL Absolute Neuts (auto) (2.0-8.3) x10*3/uL Absolute Nucleated RBC (0.0-0.012) X10*3/uL Nucleated RBC % (auto) (0.0-0.2) /100WBC Sodium (135-145) mmol/L Potassium (3.3-5.1) mmol/L Chloride (96-108) mmol/L Carbon Dioxide (22-29) mmol/L Anion Gap (12-20) BUN (9-16) mg/dL Creatinine (0.5-1.4) mg/dL Estim Creat Clear Calc Estimated GFR Random Glucose (60-115) mg/dL Calcium (8.4-10.2) mg/dL Magnesium (1.6-2.6) mg/dL Total Bilirubin (0.0-1.0) mg/dL Direct Bilirubin (0.0-0.5) mg/dL AST (5-37) U/L ALT (0-40) U/L Alkaline Phosphatase (39-117) U/L Total Protein (6.5-8.0) g/dL Albumin (3.5-5.0) g/dL Lipase (8-78) U/L Urine Color Urine Appearance Urine pH (5.0-9.0) Ur Specific [employer] (1.005-1.025) Urine Protein (Neg-Trace) mg/dL Urine Glucose (UA) (Negative) mg/dL Urine Ketones (Negative) mg/dL Urine Blood (Negative) Urine Nitrite (Negative) Ur Leukocyte Esterase (Negative) C. difficile Tox B Gene NEGATIVE (Negative) COVID-19 ([facility]) Negative (Negative) COVID-19 Clin Com See Note <ISH Reyes - Last Filed: 06/30/22 18:54> Lab Results 06/30/22 06/30/22 06/30/22 Range/Units 12:12 12:12 16:01 WBC 5.9 (4.8-10.8) X10*3/uL RBC 4.72 (4.60-5.80) X10*6/uL Hgb 15.8 (14.0-18.0) g/dl Hct 45.1 (42.0-52.0) % MCV 95.6 (80.0-98.0) fL MCH 33.5 H (27.0-33.0) pg MCHC 35.0 (31.0-36.0) g/dl RDW 12.0 (11.0-16.0) % Plt Count 161 (160-400) X10*3/uL MPV 10.3 (9.4-12.4) fL Immature Gran % (Auto) 0.5 H (0.0-0.4) % Neut % (Auto) 53.9 (45-73) % Lymph % (Auto) 32.3 (20-40) % Ware % (Auto) 10.4 (2-11) % Eos % (Auto) 2.6 (0-4) % Baso % (Auto) 0.3 (0-2) % Lymph # (Auto) 1.9 (1.2-4.9) X10*3/uL Ware # (Auto) 0.6 (0.1-1.2) X10*3/uL Eos # (Auto) 0.2 (0.0-0.4) X10*3/uL Baso # (Auto) 0.0 (0.0-0.2) X10*3/uL Abs Immat Gran (auto) 0.03 (0.00-0.03) X10*3/uL Absolute Neuts (auto) 3.2 (2.0-8.3) x10*3/uL Absolute Nucleated RBC 0.000 (0.0-0.012) X10*3/uL Nucleated RBC % (auto) 0.0 (0.0-0.2) /100WBC Sodium 142 (135-145) mmol/L Potassium 4.2 D (3.3-5.1) mmol/L Chloride 108 (96-108) mmol/L Carbon Dioxide 26 (22-29) mmol/L Anion Gap 12 (12-20) BUN 27 H (9-16) mg/dL Creatinine 1.59 H (0.5-1.4) mg/dL Estim Creat Clear Calc 46.6 Estimated GFR 44 Random Glucose 107 (60-115) mg/dL Calcium 9.0 D (8.4-10.2) mg/dL Magnesium 1.7 (1.6-2.6) mg/dL Total Bilirubin 0.8 (0.0-1.0) mg/dL Direct Bilirubin 0.2 (0.0-0.5) mg/dL AST 39 H (5-37) U/L ALT 93 H (0-40) U/L Alkaline Phosphatase 88 (39-117) U/L Total Protein 7.4 (6.5-8.0) g/dL Albumin 4.2 (3.5-5.0) g/dL Lipase 11 (8-78) U/L Urine Color Yellow Urine Appearance Clear Urine pH 5.5 (5.0-9.0) Ur Specific [employer] 1.010 (1.005-1.025) Urine Protein Negative (Neg-Trace) mg/dL Urine Glucose (UA) Negative (Negative) mg/dL Urine Ketones Negative (Negative) mg/dL Urine Blood Negative (Negative) Urine Nitrite Negative (Negative) Ur Leukocyte Esterase Negative (Negative) C. difficile Tox B Gene (Negative) COVID-19 ([facility]) (Negative) COVID-19 Clin Com 06/30/22 06/30/22 Range/Units 16:01 17:17 WBC (4.8-10.8) X10*3/uL RBC (4.60-5.80) X10*6/uL Hgb (14.0-18.0) g/dl Hct (42.0-52.0) % MCV (80.0-98.0) fL MCH (27.0-33.0) pg MCHC (31.0-36.0) g/dl RDW (11.0-16.0) % Plt Count (160-400) X10*3/uL MPV (9.4-12.4) fL Immature Gran % (Auto) (0.0-0.4) % Neut % (Auto) (45-73) % Lymph % (Auto) (20-40) % Ware % (Auto) (2-11) % Eos % (Auto) (0-4) % Baso % (Auto) (0-2) % Lymph # (Auto) (1.2-4.9) X10*3/uL Ware # (Auto) (0.1-1.2) X10*3/uL Eos # (Auto) (0.0-0.4) X10*3/uL Baso # (Auto) (0.0-0.2) X10*3/uL Abs Immat Gran (auto) (0.00-0.03) X10*3/uL Absolute Neuts (auto) (2.0-8.3) x10*3/uL Absolute Nucleated RBC (0.0-0.012) X10*3/uL Nucleated RBC % (auto) (0.0-0.2) /100WBC Sodium (135-145) mmol/L Potassium (3.3-5.1) mmol/L Chloride (96-108) mmol/L Carbon Dioxide (22-29) mmol/L Anion Gap (12-20) BUN (9-16) mg/dL Creatinine (0.5-1.4) mg/dL Estim Creat Clear Calc Estimated GFR Random Glucose (60-115) mg/dL Calcium (8.4-10.2) mg/dL Magnesium (1.6-2.6) mg/dL Total Bilirubin (0.0-1.0) mg/dL Direct Bilirubin (0.0-0.5) mg/dL AST (5-37) U/L ALT (0-40) U/L Alkaline Phosphatase (39-117) U/L Total Protein (6.5-8.0) g/dL Albumin (3.5-5.0) g/dL Lipase (8-78) U/L Urine Color Urine Appearance Urine pH (5.0-9.0) Ur Specific [employer] (1.005-1.025) Urine Protein (Neg-Trace) mg/dL Urine Glucose (UA) (Negative) mg/dL Urine Ketones (Negative) mg/dL Urine Blood (Negative) Urine Nitrite (Negative) Ur Leukocyte Esterase (Negative) C. difficile Tox B Gene NEGATIVE (Negative) COVID-19 ([facility]) Negative (Negative) COVID-19 Clin Com See Note <ISH Malagon - Last Filed: 06/30/22 17:09> Radiology Impression Discussion of test interpretation with radiology: I have reviewed the radiologist's reading. <ISH Malagon - Last Filed: 06/30/22 17:09> External Record Review External record reviewed: Office record, Outpatient record, Prior outpatient labs, Prior outpatient radiology and Outside ED record <ISH Malagon - Last Filed: 06/30/22 17:09> Discharge Plan Discharge Clinical Impression: Calculus of proximal left ureter, Gastroenteritis, FLORESITA (acute kidney injury) <ISH Reyes - Last Filed: 06/30/22 18:54> Patient Disposition: Admitted As Inpatient <ISH Reyes - Last Filed: 06/30/22 18:54>
[2022-06-30 12:19] LABS: MANUAL DIFF FLAG NO
[2022-06-30 12:22] LABS: Basophils Percent Auto 0.3 % (0-2); Eosinophils Absolute Auto 0.2 X10*3/uL (0.0-0.4); Eosinophils Percent Auto 2.6 % (0-4); Hematocrit 45.1 % (42.0-52.0); Hemoglobin 15.8 g/dl (14.0-18.0); Imm Gran Abs Auto 0.03 X10*3/uL (0.00-0.03); Imm Gran Pct Auto 0.5 % (0.0-0.4); Lymphocytes Absolute Auto 1.9 X10*3/uL (1.2-4.9); Lymphocytes Percent Auto 32.3 % (20-40); Mean Corpuscular Hemoglobin 33.5 pg (27.0-33.0); Mean Corpuscular Volume 95.6 fL (80.0-98.0); Mean Platelet Volume 10.3 fL (9.4-12.4); Monocytes Absolute Auto 0.6 X10*3/uL (0.1-1.2); Monocytes Percent Auto 10.4 % (2-11); Neutrophils Absolute Auto 3.2 x10*3/uL (2.0-8.3); Neutrophils Percent Auto 53.9 % (45-73); Platelet Count 161 X10*3/uL (160-400); Red Blood Count 4.72 X10*6/uL (4.60-5.80); White Blood Count 5.9 X10*3/uL (4.8-10.8)
[2022-06-30 12:36] LABS: Alanine Aminotransferase 93 U/L (0-40); Albumin Level 4.2 g/dL (3.5-5.0); Alkaline Phosphatase 88 U/L (39-117); Anion Gap 12 (12-20); Aspartate Amino Transferase 39 U/L (5-37); Bilirubin Direct 0.2 mg/dL (0.0-0.5); Bilirubin Total 0.8 mg/dL (0.0-1.0); Blood Urea Nitrogen 27 mg/dL (9-16); Carbon Dioxide 26 mmol/L (22-29); Chloride 108 mmol/L (96-108); Creatinine Clr Calc Pharmacy 46.6; Estimated Glomerular Filt Rate 44; Glucose Random 107 mg/dL (60-115); Lipase 11 U/L (8-78); Magnesium 1.7 mg/dL (1.6-2.6); Potassium 4.2 mmol/L (3.3-5.1); Sodium 142 mmol/L (135-145); Total Protein 7.4 g/dL (6.5-8.0)
[2022-06-30] MEDS: Lactated Ringers 1,000 ML 999 ML IV ×2 (14:50→15:04)
[2022-06-30 16:12] LABS: Appearance Urine Clear; Color Urine Yellow; Glucose Urine UA Negative (Negative); Leukocyte Esterase Urine Negative (Negative); Nitrite Urine Negative (Negative); PH 5.5 (5.0-9.0); Urine Blood Negative (Negative); Urine Ketones Negative (Negative); Urine Protein Negative (Neg-Trace)
[2022-06-30] MEDS: Ketorolac Tromethamine 15 MG/ML VIAL IVPUSH (16:12)
[2022-06-30 17:14] LABS: CDiff Gene PCR NEGATIVE (Negative)
[2022-06-30 17:38] LABS: COVID-19 Test Negative (Negative); IDNOW Serial# 9DB6401D
--- NOTE | 2022-06-30 18:18 | PM.IMHP ---
History of Present Illness Date of Service: 06/30/22 Chief Complaint: left flank pain 66-year-old male with past medical history of hypertension lymphoma presents to the emergency room with a 2 day history of URI symptoms including lower abdominal pain and watery nonbloody diarrhea. He was prescribed azithromycin by PCP which is centrally did nothing. Upon exam in the ER he was noted to have significant left flank left lower abdomen pain. Subsequently CT of the abdomen was done and demonstrated a 6 mm calculus within the proximal left ureter. Call was placed Urology wished patient admitted for procedure in a.m. Review of Systems Review of Systems: denies chest pain Denies shortness of breath Admits to nausea vomiting diarrhea Denies fever chills PMFSH Medical History Bifascicular block Hypertension Lymphoma Family History Mother Recurrent strokes Father Heart disease History of throat cancer Surgical History No pertinent past surgical history Social History Alcohol intake: current Alcohol intake frequency: holidays/special occasions only Patient Tobacco Use Status: Never used Tobacco Advance Directives: No Advance Directives Information Provided: No Meds Allergies Allergy/AdvReac Type Severity Reaction Status Date / Time vitamin E (d-alpha Allergy Itching Verified 06/30/22 12:00 tocopherol) Active Medications: Current Medications Pharmacy Consult (Consult Rx Perform Med Rec) 1 each MISCELLANE ONCE STA Stop: 06/30/22 17:00 Pharmacy Consult (Consult Rx Perform Med Rec) 1 each MISCELLANE ONCE PRN PRN Reason: Consult order Sodium Chloride (0.9 % Sodium Chloride Flush 3 Ml Syringe) [facility] Medications Medication Instructions Recorded Confirmed Last Taken Type omeprazole 20 mg capsule,delayed 20 mg PO DAILY 05/29/20 03/31/22 Unknown History release losartan 100 mg tablet 100 mg PO DAILY 03/31/22 03/31/22 Unknown History metoprolol succinate 100 mg 100 mg PO DAILY 03/31/22 03/31/22 Unknown History tablet,extended release 24 hr nifedipine 30 mg tablet,extended 30 mg PO DAILY 03/31/22 03/31/22 Unknown History release spironolactone 25 mg tablet 25 mg PO DAILY 03/31/22 03/31/22 Unknown History ammonium lactate 12 % topical cream 1 appl topical NEEDED 06/30/22 Unknown History azithromycin 250 mg tablet mg 06/30/22 06/30/22 Unknown History cetirizine 10 mg tablet 1 tab PO DAILY PRN itch 06/30/22 Unknown History cholecalciferol (vitamin D3) 25 25 mcg PO DAILY 06/30/22 06/30/22 Unknown History mcg (1,000 unit) tablet magnesium 200 mg tablet 200 mg PO DAILY 06/30/22 06/30/22 Unknown History multivitamin (Daily Multi-Vitamin 1 tab PO DAILY 06/30/22 06/30/22 Unknown History tablet) Physical Exam Vital Signs and Narrative: Vital Signs: Last Vital Signs Temp 97.7 F 06/30/22 11:55 Pulse 86 06/30/22 11:55 Resp 16 06/30/22 11:55 BP 121/90 H 06/30/22 11:55 Pulse Ox 99 06/30/22 11:55 O2 Del Method 06/30/22 11:55 BMI result Body Mass Index 22.8 Const: Other: awake alert appears slightly uncomfortable in Resp: Other: clear to auscultation bilaterally no rales rhonchi or wheezes Cardio: Other: no S4; positive S1-S2; no S3 murmurs rubs or gallops GI: Other: soft minimal left lower quadrant tenderness without rebound. Bowel sounds quiet Back/Spine/Pelvis: Other: left CVA tenderness Neuro: Other: cranial nerves 2-12 grossly intact as tested. Motor is 5/5 all extremities. Sensation is intact. Cognition is appropriate Extrem: Other: no edema bilaterally Results Labs 06/30/22 12:12 06/30/22 12:12 Labs: Laboratory Results - last 24 hr 06/30/22 06/30/22 06/30/22 12:12 12:12 16:01 MCV 95.6 MCH 33.5 H MCHC 35.0 RDW 12.0 Plt Count 161 MPV 10.3 Immature Gran % (Auto) 0.5 H Neut % (Auto) 53.9 Lymph % (Auto) 32.3 [place] % (Auto) 10.4 Eos % (Auto) 2.6 Baso % (Auto) 0.3 Lymph # (Auto) 1.9 [place] # (Auto) 0.6 Eos # (Auto) 0.2 Baso # (Auto) 0.0 Abs Immat Gran (auto) 0.03 Absolute Neuts (auto) 3.2 Absolute Nucleated RBC 0.000 Nucleated RBC % (auto) 0.0 Anion Gap 12 Estim Creat Clear Calc 46.6 Estimated GFR 44 Random Glucose 107 Calcium 9.0 D Magnesium 1.7 Total Bilirubin 0.8 Direct Bilirubin 0.2 AST 39 H ALT 93 H Alkaline Phosphatase 88 Total Protein 7.4 Albumin 4.2 Lipase 11 Urine Color Yellow Urine Appearance Clear Urine pH 5.5 Ur Specific [place] 1.010 Urine Protein Negative Urine Glucose (UA) Negative Urine Ketones Negative Urine Blood Negative Urine Nitrite Negative Ur Leukocyte Esterase Negative C. difficile Tox B Gene COVID-19 (LAYLA) COVID-19 [place] 06/30/22 06/30/22 16:01 17:17 MCV MCH MCHC RDW Plt Count MPV Immature Gran % (Auto) Neut % (Auto) Lymph % (Auto) [place] % (Auto) Eos % (Auto) Baso % (Auto) Lymph # (Auto) [place] # (Auto) Eos # (Auto) Baso # (Auto) Abs Immat Gran (auto) Absolute Neuts (auto) Absolute Nucleated RBC Nucleated RBC % (auto) Anion Gap Estim Creat Clear Calc Estimated GFR Random Glucose Calcium Magnesium Total Bilirubin Direct Bilirubin AST ALT Alkaline Phosphatase Total Protein Albumin Lipase Urine Color Urine Appearance Urine pH Ur Specific [place] Urine Protein Urine Glucose (UA) Urine Ketones Urine Blood Urine Nitrite Ur Leukocyte Esterase C. difficile Tox B Gene NEGATIVE COVID-19 (LAYLA) Negative COVID-19 Clin Com See Note Imaging Radiologist's Impressions: Impressions Abdomen/Pelvis CT 06/30/22 13:13 IMPRESSION: Findings as described above. 6 mm calculus within the proximal left ureter. This is not causing significant obstruction. The bowel pattern is felt to be nonobstructing. There is no free fluid here. No suspicious soft tissue stranding is noted. Fleischner guidelines were followed. Assessment and Plan (1) Calculus of proximal left ureter: Status: Acute (2) FLORESITA (acute kidney injury): Status: Acute (3) Hypertension: Qualifiers: Hypertension type: primary hypertension Qualified Code(s): I10 - Essential (primary) hypertension Status: Acute Plan 66-year-old male with 2 day history of URI symptoms presents to the emergency room with nausea vomiting diarrhea and left lower abdominal pain/flank pain. Workup consistent with calculus of proximal left ureter. Seen by Urology scheduled for stone removal in stenting in a.m. 1. Calculus of proximal left ureter - admit GMF - pain control with morphine/oxycodone - IV fluids overnight - NPO after midnight 2.Acute kidney injury - likely secondary from nausea and vomiting - lactated Ringer's at 150/H overnight -follow renals/divalents 3.HTN - acceptable control at present - had back outpatient meds in a.m. full code pneumatics patient requires 2 midnights inpatient going forward for IV volume repletion to correct acute kidney injury and for surgical procedure to remove proximal left ureteral stone. This cannot be achieved and a lesser acute setting Time Spent With Patient Time: Total time managing care of this patient today ____ minutes. Quality Stroke Does the patient have a stroke diagnosis?: No VTE Prior VTE?: No VTE Risk Level:: Medical - moderate - high VTE Device Contraindication: N/A - Device Ordered VTE Drug Contraindication: Treatment Not Indicated
--- NOTE | 2022-06-30 18:24 | PHA.MEDREC ---
Pharmacy Consult ? Medication Reconciliation Pharmacy has completed the medication reconciliation. Patient has pictures of medication bottles on phone. Discussed medications with him with assistance of family member at bedside as his bulgarian is limited. He doesn't remember the last time he took his medication at home.
[2022-06-30 22:03] VITALS: BP 162/96; PULSE 77; RESP 18; TEMP 36.7; O2SAT 98
[2022-06-30 23:37] VITALS: BP 163/95; PULSE 71; RESP 18; TEMP 36.6; O2SAT 98
[2022-07-01] VITALS (11 sets, daily range): BP systolic 131–165; BP diastolic 76–96; PULSE 61–78; RESP 12–18; TEMP 36.1–37; O2SAT 96–100; BMI 22.8
[2022-07-01] MEDS: 0.9 % Sodium Chloride Flush 3 ML SYRINGE IVFLUSH ×2 (00:43→08:59)
[2022-07-01] MEDS: Lactated Ringers 1,000 ML 150 ML IVCONT ×3 (08:59→20:10)
--- NOTE | 2022-07-01 09:12 | P.CNUR_ITS ---
History of Present Illness Consult details Consult date: 06/30/22 Narrative: cc: Left upper ureter stone Presents with 2 day history of pain on that side Creatinine 1.6 CT scan 6 mm left upper ureteric stone Consistent with obstruction Low probability of passage Admit for rehydration, stabilization and possible procedure tomorrow - recommend cystoscopy, left retrograde, left ureteroscopy with laser lithotripsy stent placed Review of Systems Constitutional: Constitutional: Reports as per HPI and Reports no additional constitutional complaints Cardiovascular: Cardiovascular: Reports as per HPI and Reports no additional cardiovascular complaints Respiratory: Respiratory: Reports as per HPI and Reports no additional respiratory complaints Gastrointestinal: Gastrointestinal: Reports as per HPI and Reports no additi onal gastrointestinal complaints Genitourinary: Genitourinary: Reports as per HPI Musculoskeletal: Musculoskeletal: Reports no additional musculoskeletal complaints and Reports as per HPI Neurologic: Reports system reviewed and no additional complaints, except as documented and Reports as per HPI [facility] Past Medical History Medical History Bifascicular block Hypertension Lymphoma Family History Family History Mother Recurrent strokes Father Heart disease History of throat cancer Surgical History Surgical History No pertinent past surgical history Social History Social History Household Members: Spouse Housing: Apartment Do you presently have visiting nurse or other home services: No Alcohol intake: unknown Patient Tobacco Use Status: Never used Tobacco Smoked in Last 30 Days: No Use of substances other than those prescribed or required for medical reasons: No Currently Displaying Signs/Symptoms of Drug Intoxication Withdrawal: No Have you been hit, kicked, punched, or otherwise hurt by someone within the past year? If so, by whom?: No Do you feel safe in your current relationship?: Yes Is there a partner from a previous relationship who is making you feel unsafe now?: No Are you made to feel afraid or neglected: No [facility] Practices: [facility] [employer] Advance Directives: No Advance Directives Information Provided: No Do you have thoughts of harming others: None Do you have a plan to hurt others: No Plan Recently lost weight without trying: Yes How much weight loss: 2-13 pounds Eating poorly because of decreased appetite: Yes Nutrition screen score: 4 Nutrition Risks: No Nutritional Risk Meds Allergies Allergy/AdvReac Type Severity Reaction Status Date / Time vitamin E (d-alpha Allergy Itching Verified 06/30/22 12:00 tocopherol) Active Medications: Current Medications Lactated Ringer's (Lr) 1,000 mls @ 150 mls/hr IVCONT .Q6H40M [facility] Last Admin: 07/01/22 08:59 Dose: 150 mls/hr Sodium Chloride (0.9 % Sodium Chloride Flush 3 Ml Syringe) 3 ml IVFLUSH QSHIFT [facility] Last Admin: 07/01/22 08:59 Dose: 3 ml Home Medications Medication Instructions Recorded Confirmed Last Taken Type omeprazole 20 mg capsule,delayed 20 mg PO DAILY 05/29/20 06/30/22 Unknown History release losartan 100 mg tablet 100 mg PO DAILY 03/31/22 06/30/22 Unknown History metoprolol succinate 100 mg 100 mg PO DAILY 03/31/22 06/30/22 Unknown History tablet,extended release 24 hr nifedipine 30 mg tablet,extended 30 mg PO DAILY 03/31/22 06/30/22 Unknown History release spironolactone 25 mg tablet 25 mg PO DAILY 03/31/22 06/30/22 Unknown History ammonium lactate 12 % topical cream 1 appl topical NEEDED PRN Dry 06/30/22 06/30/22 Unknown History Skin azithromycin 250 mg tablet 250 mg PO DAILY 06/30/22 06/30/22 Unknown History cetirizine 10 mg tablet 1 tab PO DAILY PRN itch 06/30/22 06/30/22 Unknown History cholecalciferol (vitamin D3) 25 25 mcg PO DAILY 06/30/22 06/30/22 Unknown History mcg (1,000 unit) tablet magnesium 200 mg tablet 200 mg PO DAILY 06/30/22 06/30/22 Unknown History multivitamin (Daily Multi-Vitamin 1 tab PO DAILY 06/30/22 06/30/22 Unknown History tablet) Physical Exam Vital Signs: Vital Signs: Last Vital Signs Temp 98.6 F 07/01/22 08:00 Pulse 75 07/01/22 08:00 Resp 18 07/01/22 08:00 BP 131/76 07/01/22 08:00 Pulse Ox 96 07/01/22 08:00 O2 Del Method 07/01/22 08:00 BMI result Body Mass Index 22.8 Const: General: cooperative, healthy appearing, comfortable and no acute d istress Orientation/consciousness: patient oriented x3 HEENT: Face and sinus: Yes normal facial exam Mouth: moist mucous membranes Neck: Neck: Yes normal visual inspection, Yes full ROM and Yes trachea midline Chest: Chest palpation & inspection: normal inspection of the chest Resp: Effort & Inspection: normal respiratory effort, able to speak in complete sentences and no respiratory distress GI: Inspection: Yes normal to inspection Back/Spine/Pelvis: Cervical Spine: normal cervical lordosis Thoracic/Lumbar Spine: thoracic and lumbar spine normal to inspection Skin: General skin exam: no rashes or lesions noted Neuro: General: patient oriented x3, tone normal and moves all extremities Extrem: General: Yes normal to inspection and Yes capillary refill normal Results Labs 06/30/22 12:12 06/30/22 12:12 Labs: Abnormal lab results 06/30/22 06/30/22 Range/Units 12:12 12:12 MCH 33.5 H (27.0-33.0) pg Immature Gran % (Auto) 0.5 H (0.0-0.4) % BUN 27 H (9-16) mg/dL Creatinine 1.59 H (0.5-1.4) mg/dL AST 39 H (5-37) U/L ALT 93 H (0-40) U/L Short CBC 06/30/22 Range/Units 12:12 WBC 5.9 (4.8-10.8) X10*3/uL Hgb 15.8 (14.0-18.0) g/dl Hct 45.1 (42.0-52.0) % Plt Count 161 (160-400) X10*3/uL BMP 06/30/22 12:12 Sodium 142 Potassium 4.2 D Chloride 108 Carbon Dioxide 26 BUN 27 H Creatinine 1.59 H Calcium 9.0 D Liver Function 06/30/22 Range/Units 12:12 Total Bilirubin 0.8 (0.0-1.0) mg/dL Direct Bilirubin 0.2 (0.0-0.5) mg/dL AST 39 H (5-37) U/L ALT 93 H (0-40) U/L Alkaline Phosphatase 88 (39-117) U/L Albumin 4.2 (3.5-5.0) g/dL Urine 06/30/22 Range/Units 16:01 Urine Color Yellow Urine Appearance Clear Urine pH 5.5 (5.0-9.0) Ur Specific [place] 1.010 (1.005-1.025) Urine Protein Negative (Neg-Trace) mg/dL Urine Glucose (UA) Negative (Negative) mg/dL All other labs normal. Assessment and Plan (1) Calculus of proximal left ureter: Status: Acute Plan Ureteroscopy We discussed the nature of the decision and reasonable alternatives for performing ureteroscopy. Options such as medical therapy were discussed. Interventions include chemical dissolution, ESWL, ureteroscopy with laser lithotripsy and stent placement, PCNL. The relative uncertainties and benefits related to each alternate procedure were adequately discussed. General surgical risks including, but not limited to - pain, bleeding, infection, myocardial infarction, pulmonary embolus, deep vein thrombosis and cerebrovascular accident which may result in further hospita lization were discussed. Full disclosure of the procedure as well as all major risks, benefits and complications were discussed including but not limited to damage to the urethra, bladder and kidney infection, damage to the ureter, stent migration or malposition, scarring to the renal pelvis, remnant stone fragments, subsequent stone passage with need for secondary procedures. The overall secondary procedure rate is approximately 10-15%. The overall clearance rate is approximately 90-95%. Success of the procedure in the short-term does not necessarily guarantee that long-term success will be maintained. Suitable follow up will need to be maintained. The patient showed understanding of discussion and wishes to proceed with - cystoscopy, retrograde, ureteroscopy, possible lithotripsy/stone basketing and stent on the left side Time Spent With Patient Time: Total time managing care of this patient today ____ minutes. Procedures Date of Service Date of Service: 06/30/22
[2022-07-01 10:37] LABS: Adenovirus F 40/41 Not Detected (Not Detect.); Astrovirus Detected (Not Detect.); Campylobacter Not Detected (Not Detect.); Cryptosporidium Not Detected (Not Detect.); Cyclospora cayetanensis Not Detected (Not Detect.); E. coli EAEC Not Detected (Not Detect.); E. coli EPEC Not Detected (Not Detect.); E. coli ETEC Not Detected (Not Detect.); E. coli STEC Not Detected (Not Detect.); Entamoeba histolytica Not Detected (Not Detect.); Giardia lamblia Not Detected (Not Detect.); Norovirus GI/GII Not Detected (Not Detect.); Plesiomonas shigelloides Not Detected (Not Detect.); Rotavirus A Not Detected (Not Detect.); Salmonella Not Detected (Not Detect.); Sapovirus Not Detected (Not Detect.); Shigella sp./EIEC Not Detected (Not Detect.); Vibrio Not Detected (Not Detect.); Vibrio Cholerae Not Detected (Not Detect.); Yersinia enterocolitica Not Detected (Not Detect.)
--- NOTE | 2022-07-01 11:18 | MHC.CM.PN ---
IMM 07/01/2022 DELIVERED TO BEDSIDE AND PLACED IN CHART. EMR REVIEWED, PT ADMITTED W/RENAL CALCULI AND PLAN FOR STENT PRIOR TO D/C. CM MET W/PT VIA HUNTER GUIDE, PT REPORTS HE LIVES W/S.O., IS INDEP W/ALL CARE, WORKING AND DENIES USE OF DME/SERVICES. PT VERIFIES PCP IS JOHNNY DANIELSON, COVID VACC X2, PT EDUCATED ON HCP'S AND HAS COMPLETED ONE NAMING HIS S.O. RODRIGUEZ MICHELLE [phone], PT PROVIDED W/EDUCATIONAL HANDOUT IN [place], ORIGINAL AND 2 COPIES, COPY UPLOADED TO [facility] AND PLACED IN CHART. D/C PLAN: HOME NO SERVICES, PT WILL SELF TRANSPORT OR CALL FOR RIDE IF NEEDED.
--- NOTE | 2022-07-01 12:49 | MHC.CLN ---
NUTRITION CONSULT FOR WEIGHT LOSS. REVIEW OF WEIGHT HX SHOWS -9.4% WEIGHT LOSS X 3 MONTHS; -7.2% WEIGHT LOSS X 11 MONTHS. CURRENTLY NPO. WILL FOLLOW UP WITH PATIENT WHEN DIET ADVANCES.
--- NOTE | 2022-07-01 14:53 | P.PNIM_ITS ---
Subjective Subjective Date of Service: 07/01/22 Interval History: No acute issues overnight. Pain control adequate. Remains NPO for procedure Review of Systems denies chest pain Denies shortness of breath Admits to nausea vomiting diarrhea Denies fever chills Physical Exam Vital Signs: Vital Signs: Last Vital Signs Temp 98.6 F 07/01/22 08:00 Pulse 75 07/01/22 08:00 Resp 18 07/01/22 08:00 BP 131/76 07/01/22 08:00 Pulse Ox 96 07/01/22 08:00 O2 Del Method 07/01/22 08:00 BMI result Body Mass Index 22.8 Const: Other: awake alert appears slightly uncomfortable in Resp: Other: clear to auscultation bilaterally no rales rhonchi or wheezes Cardio: Other: no S4; positive S1-S2; no S3 murmurs rubs or gallops GI: Other: soft minimal left lower quadrant tenderness without rebound. Bowel sounds quiet Back/Spine/Pelvis: Other: left CVA tenderness Neuro: Other: cranial nerves 2-12 grossly intact as tested. Motor is 5/5 all extremities. Sensation is intact. Cognition is appropriate Extrem: Other: no edema bilaterally Objective Data Active Medications Lactated Ringer's (Lr) 1,000 mls @ 150 mls/hr IVCONT .Q6H40M [facility] Last Admin: 07/01/22 08:59 Dose: 150 mls/hr Documented By: KEYLA Sodium Chloride (0.9 % Sodium Chloride Flush 3 Ml Syringe) 3 ml IVFLUSH QSHIFT [facility] Last Admin: 07/01/22 08:59 Dose: 3 ml Documented By: KEYLA Labs 06/30/22 12:12 06/30/22 12:12 Labs: Laboratory Results - last 24 hr 06/30/22 06/30/22 06/30/22 16:01 16:01 16:01 Urine Color Yellow Urine Appearance Clear Urine pH 5.5 Ur Specific [place] 1.010 Urine Protein Negative Urine Glucose (UA) Negative Urine Ketones Negative Urine Blood Negative Urine Nitrite Negative Ur Leukocyte Esterase Negative Stl C. cayetanensis PCR Not Detected Stool Rotavirus A PCR Not Detected Stl Adenov F 40/41 PCR Not Detected Stool Astrovirus (PCR) Detected A Stool Campylobacter PCR Not Detected Stool Cryptosporidium PCR Not Detected Stl Sh Tox Pr E STEC PCR Not Detected Stool E coli O157 PCR Not applicable Stl Enterotoxigenic E PCR Not Detected Stool EPEC (PCR) Not Detected Stool EAEC (PCR) Not Detected Stl E. histolytica PCR Not Detected Stool Giardia Lamblia PCR Not Detected Stl P. shigelloides PCR Not Detected Stool Salmonella PCR Not Detected Stool Sapovirus (PCR) Not Detected Stl Shigella/EIEC PCR Not Detected St Y.enterocolitica PCR Not Detected Stool Vibrio (PCR) Not Detected Stl Vibrio cholerae PCR Not Detected Stl Norovirus GI/GII PCR Not Detected C. difficile Tox B Gene NEGATIVE COVID-19 ([facility]) COVID-19 Clin Com 06/30/22 17:17 Urine Color Urine Appearance Urine pH Ur Specific [place] Urine Protein Urine Glucose (UA) Urine Ketones Urine Blood Urine Nitrite Ur Leukocyte Esterase Stl C. cayetanensis PCR Stool Rotavirus A PCR Stl Adenov F 40/41 PCR Stool Astrovirus (PCR) Stool Campylobacter PCR Stool Cryptosporidium PCR Stl Sh Tox Pr E STEC PCR Stool E coli O157 PCR Stl Enterotoxigenic E PCR Stool EPEC (PCR) Stool EAEC (PCR) Stl E. histolytica PCR Stool Giardia Lamblia PCR Stl P. shigelloides PCR Stool Salmonella PCR Stool Sapovirus (PCR) Stl Shigella/EIEC PCR St Y.enterocolitica PCR Stool Vibrio (PCR) Stl Vibrio cholerae PCR Stl Norovirus GI/GII PCR C. difficile Tox B Gene COVID-19 (LAYLA) Negative COVID-19 Clin Com See Note Assessment and Plan (1) Calculus of proximal left ureter: Status: Acute (2) FLORESITA (acute kidney injury): Status: Acute (3) Hypertension: Status: Acute Plan 66-year-old male with 2 day history of URI symptoms presents to the emergency room with nausea vomiting diarrhea and left lower abdominal pain/flank pain. Workup consistent with calculus of proximal left ureter. Seen by Urology scheduled for stone removal in stenting in a.m. 1. Calculus of proximal left ureter - continue NPO status -to OR for stone removal approximately 16 30 today 2. FLORESITA - likely secondary from nausea and vomiting - lactated Ringer's at 150/H overnight -follow renals/divalents 3.HTN - acceptable control at present - had back outpatient meds in a.m. full code pneumatics Requires ongoing hospitalization for volume repletion while NPO pending surgical procedure to remove stone Time Spent With Patient Time: Total time managing care of this patient today ____ minutes. Quality Stroke Does the patient have a stroke diagnosis?: No VTE Prior VTE?: No VTE Risk Level:: Medical - moderate - high VTE Device Contraindication: N/A - Device Ordered VTE Drug Contraindication: Treatment Not Indicated
--- NOTE | 2022-07-01 17:21 | MHC.SHP ---
Pre-Procedural Eval Section A Date of Service: 07/01/22 The patient is an INPATIENT: Yes Changes since office visit: No Cold of Flu in the past 2 weeks, No New Medical Problems, No Changes in Medication and No Patient answered all questions The History & Physical has been completed within 30 days and I have reviewed it.: Yes Section B Chief Complaint: Renal calculus Allergies: Allergies Allergy/AdvReac Type Severity Reaction Status Date / Time vitamin E (d-alpha Allergy Itching Verified 06/30/22 12:00 tocopherol) Plan Diagnosis/Plan: Unchanged ( cystoscopy, left retrograde, left ureteroscopy with laser lithotripsy and possible stent placement) I have reviewed the history and physical and performed a pertinent physical examination on my patient. No changes have occurred unless specified. Time Spent With Patient Time: Total time managing care of this patient today ____ minutes.
--- NOTE | 2022-07-01 17:21 | W.PM.OPN ---
Operative Note Operative Note Date of Service: 07/01/22 Narrative: PreOperative Diagnosis: left proximal ureteric stone Post Operative Diagnosis: left renal stone Procedure: - cystoscopy, left retrograde - left dilatation of ureteric orifice under fluoroscopy - left ureteroscopy, laser lithotripsy, stone basketing - left stent placement Surgeon: Dr Thony Walker Anesthesia: General Indications for procedure: left proximal ureteric stone with persistent pain 6 mm Procedure: After informed consent was verified patient was brought to the operating placed in supine position. Anesthesia was administered per protocol. Patient was placed in modified dorsal lithotomy position and prepped and draped in a sterile fashion. Safety pause time-out and side of surgery confirmed. Antibiotics confirmed. 22 Trinidadian cystoscope was inserted per urethra. Bladder was normal in its entirety. Both ureteric orifices were in normal position. The left ureteric orifice was cannulated and a retrograde examination was performed. filling defect at edge of UPJ. A Sensor guidewire was placed up to the level of the renal pelvis under fluoroscopy. the stone was knocked back into the renal pelvis. The rigid cystoscope was removed and the inner cannula of ureteric access sheath was used under fluoroscopy to dilate the ureteric orifice. The ureteric access sheath was placed and the inner cannula with access wire removed. The digital flexible ureteral scope was placed. Stone was encountered it the edge of the lower pole. He using the holmium laser the stone was broken into small pieces. Using a 0 tip basket the pieces were removed will be sent for analysis. At the completion of the stone procedure a Sensor wire was placed back into the renal pelvis. The rigid cystoscope was backloaded over the wire and advanced into the bladder. A 6 Trinidadian by Twenty-eight cm double-J stent was placed into the renal pelvis and bladder under a combination of fluoroscopy and direct visualization. The bladder was emptied. The patient tolerated the procedure well and was extubated in the operating room, and transferred in stable condition to the recovery area. Pathology: stone Drains: stent as above
[2022-07-01] MEDS: Phenazopyridine HCL 100 MG TABLET PO (18:00)
[2022-07-01] MEDS: Acetaminophen 325 MG TABLET 975 MG PO (18:01)
[2022-07-01] MEDS: Spironolactone 25 MG TABLET PO (18:24)
[2022-07-01] MEDS: traMADoL HCL 50 MG TABLET PO (20:06)
[2022-07-02] VITALS: BP 134/81; PULSE 66; RESP 18; TEMP 36.6; O2SAT 97
[2022-07-02] MEDS: traMADoL HCL 50 MG TABLET PO (02:11)
[2022-07-02] MEDS: Lactated Ringers 1,000 ML 150 ML IVCONT ×2 (02:51→09:39)
[2022-07-02 03:25] VITALS: BP 136/79; PULSE 72; RESP 18; TEMP 36.7; O2SAT 96
[2022-07-02 08:00] VITALS: BP 151/88; PULSE 67; RESP 18; TEMP 36.6; O2SAT 99
[2022-07-02] MEDS: Spironolactone 25 MG TABLET PO (08:41)
[2022-07-02] MEDS: Metoprolol Succinate ER 100 MG TAB.ER.24H PO (08:41)
[2022-07-02] MEDS: Omeprazole 20 MG CAPSULE.DR PO (08:41)
[2022-07-02] MEDS: Losartan Potassium 50 MG TABLET 100 MG PO (08:48)
--- NOTE | 2022-07-02 09:49 | HO.POSTANES ---
Post Anesthesia Evaluation Post Anesthesia Evaluation Vital Signs: Vital Signs Temp Pulse Resp BP Pulse Ox O2 Del Method 07/02/22 08:00 97.9 F 67 18 151/88 H 99 Room Air 07/02/22 03:25 98.1 F 72 18 136/79 96 Room Air 07/02/22 00:00 97.8 F 66 18 134/81 97 Room Air Anesthesia: General Mental Status: Awake Pain Control: Satisfactory Nausea/Vomiting: None Hydration: Adequate Anesthesia-Related Issues: No Anes. Related Issues
--- NOTE | 2022-07-02 11:43 | MHC.CM.PN ---
pt dcd home w/no skilled sercveis
--- NOTE | 2022-07-02 11:58 | P.DS_ITS ---
DS: Providers Provider Date of Service: 07/02/22 Date of admission: 06/30/22 18:14 Date of discharge: 07/02/22 Primary care physician: Julio Egan MD Consults: 06/30/22 16:59 Consult to Urology Stat Consulting Provider: Thony Walker Reason for consultation: 6mm stone Has provider been notified: Yes DS: Diagnosis Discharge Diagnosis (1) Calculus of proximal left ureter: Status: Acute (2) FLORESITA (acute kidney injury): Status: Acute (3) Hypertension: Status: Acute DS: Summary Hospital Course Hospital Course: 66-year-old male with past medical history of hypertension lymphoma presents to the emergency room with a 2 day history of URI symptoms including lower abdomin al pain and watery nonbloody diarrhea.? He was prescribed? azithromycin by PCP which is centrally did nothing.? Upon exam in the ER he was noted to have significant left flank left lower abdomen pain.? Subsequently CT of the abdomen was done and demonstrated a 6 mm calculus within the proximal left ureter.? Call was placed Urology wished patient admitted for procedure in a.m. Hospital Course Patient admitted to general medical floor. On 07/01/2022 underwent left stent placement. He tolerated the procedure well overnight there were no acute issues. This time he is medically acceptable to discharge and he will follow up with Dr. Walker on Tuesday for stent removal Time Spent with Patient Time attestation: Total time managing care of this patient today ____ minutes. Discharge coordination time: Greater than 30 minutes Quality: Safe Use of Opioids Does Pt have an Active Cancer Diagnosis on the Problem List?: No Quality: Stroke Does the patient have a stroke diagnosis?: No Physical Exam Vital Signs: Vital Signs: Last Vital Signs Temp 97.9 F 07/02/22 08:00 Pulse 67 07/02/22 08:00 Resp 18 07/02/22 08:00 BP 151/88 H 07/02/22 08:00 Pulse Ox 99 07/02/22 08:00 O2 Del Method 07/02/22 08:00 O2 Flow Rate 2 07/01/22 18:02 BMI result Body Mass Index 22.8 Const: Other: awake alert appears slightly uncomfortable in Resp: Other: clear to auscultation bilaterally no rales rhonchi or wheezes Cardio: Other: no S4; positive S1-S2; no S3 murmurs rubs or gallops GI: Other: soft minimal left lower quadrant tenderness without rebound. Bowel sounds quiet Back/Spine/Pelvis: Other: left CVA tenderness Neuro: Other: cranial nerves 2-12 grossly intact as tested. Motor is 5/5 all extremities. Sensation is intact. Cognition is appropriate Extrem: Other: no edema bilaterally DS: Data Data Completed and Pending Pending studies at discharge: Pending at discharge 07/01/22 17:16 Surgical [PTH] Routine Discharge Plan Discharge Anticipated Discharge Date/Time: 07/02/22 11:27 Patient Disposition: Home, Self-Care Discharge Diagnosis: Left ureteral calculus [place] [facility] [place] - 3 days Julio Egan MD [Primary Care Provider] - 1 Week Discharge Medications: Continued cetirizine 10 mg tablet 1 tab PO DAILY PRN (Reason: itch) ammonium lactate 12 % cream 1 appl topical NEEDED PRN (Reason: Dry Skin) multivitamin [Daily Multi-Vitamin] Tablet 1 tab PO DAILY magnesium 200 mg Tablet 200 mg PO DAILY cholecalciferol (vitamin D3) 25 mcg (1,000 unit) Tablet 25 mcg PO DAILY omeprazole 20 mg capsule,delayed release(DR/EC) 20 mg PO DAILY metoprolol succinate 100 mg tablet extended release 24 hr 100 mg PO DAILY losartan 100 mg tablet 100 mg PO DAILY nifedipine 30 mg tablet extended release 30 mg PO DAILY spironolactone 25 mg tablet 25 mg PO DAILY Discontinued azithromycin 250 mg tablet 250 mg PO DAILY Rx Instructions: TO BE TAKEN UNTIL 07/02/22 Discharge Orders: Discharge Order (Routine); Ordered 07/02/22 Ordered By: Cristobal Bryant Diet: Advance to usual diet Activity on Discharge: As tolerated Stand Alone Forms: Patient Portal Discharge page Care Plan Goals: Resume all your medicines as before the hospital Health Concerns: Follow-up with Dr. Walker in the office; he will arrange removal of the stent Plan of Treatment: Follow-up with your PCP in 1 week Assessment: See discharge summary
[2022-07-08 18:13] LABS: Stone Source LEFT RENAL STONE
== END 2022-07-02 15:07 | disposition home or self-care (01) | DRG 660 ==
LOC: HO.ED 17:08 → HO.EDOVER 18:35 → HO.S3 18:54
PROVIDERS: Physician Assistant; Urology; Admitting Provider Hospitalist; Emergency Provider Emergency Medicine Emergency Medical Services; PCP Internal Medicine; Visit Provider Hospitalist
PROC: 0T778DZ Dilation of Left Ureter with Intraluminal Device, Via Natural or Artificial Opening Endoscopic (ICD-10-PCS; principal; 2022-07-01 16:00)
DX: N20.1 Calculus of ureter (principal); N17.9 Acute kidney failure, unspecified; I10 Essential (primary) hypertension; Z20.822 Contact with and (suspected) exposure to COVID-19; Z85.72 Personal history of non-Hodgkin lymphomas; Z79.899 Other long term (current) drug therapy
CPT/HCPCS: 36415; 74176; 80048; 80076; 81003; 82365; 83690; 83735; 85025; 87493; 87507; 87635; 88300; 99284; C1758; C1769; C1894; C2617; J1885; J1956; J2250; J3010; Q9967

== ENCOUNTER → 2022-07-09 10:47 | Outpatient (BNVA) | payer OTHER, SELFPAY | PROVIDERS: PCP Internal Medicine; Visit Provider Urology | DX: N20.0 Calculus of kidney (principal) | CPT/HCPCS: 52310; 99212 ==

== ENCOUNTER → 2022-07-30 09:40 | Outpatient (BNVA) | payer OTHER, SELFPAY | PROVIDERS: PCP Internal Medicine; Visit Provider Internal Medicine Cardiovascular Disease | DX: R00.1 Bradycardia, unspecified (principal); I45.2 Bifascicular block | CPT/HCPCS: 93005 ==

== ENCOUNTER → 2022-09-28 07:44 | Outpatient (REF) | payer MEDICARE, MEDICAID, SELFPAY ==
--- NOTE | ~2022-09-28 | NM_ITS ---
EXERCISE MYOCARDIAL PERFUSION STUDY INDICATION: Chest pain, assess for coronary disease and ischemia TECHNIQUE: The patient was brought in for an exercise perfusion study on 09/28/2022. Patient performed exercise as per Lauri protocol and was injected 25 mCi of sestamibi once target heart rate was achieved. Images were obtained using the SPECT gamma camera interlaced with the gating device. Images were obtained in supine position. Resting perfusion study was performed on 09/30/2022. Patient was administered 25 mCi of sestamibi intravenously at rest. Images were then obtained in supine position. Images were processed with the software and compared side to side in short axis, horizontal long axis and vertical long axis views. Total DLP 93mGy-cm. FINDINGS: Raw images were reviewed. The stress perfusion study showed no significant perfusion abnormality. Both uncorrected as well as CT attenuation corrected images were reviewed. The gated study shows normal LV systolic function with calculated LVEF of 74%. LV cavity is normal in size. The gated study shows normal wall thickening and contraction of segments. Resting study shows no significant perfusion abnormality. Gating at rest reveals normal wall motion with ejection fraction at 64%. The findings are consistent with no clear reversible or fixed perfusion abnormality. NM/NM cardiolite stress test IMPRESSION: 1. Myocardial perfusion imaging study shows normal myocardial perfusion. 2. Gated LVEF is 74% during stress and 64% during rest. 3. Transient ischemic dilatation not present. EKG component of the test reported separately.
--- NOTE | 2022-09-28 07:46 | CA_ITS ---
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 Nuclear images pending. Test reviewed with Dr. Lopez. Referred By: Mayank Lopez Overread By: HUSEYIN DARLING
== END ==
LOC: HO.CARD 07:44
PROVIDERS: PCP Internal Medicine; Visit Provider Internal Medicine Cardiovascular Disease
DX: R07.9 Chest pain, unspecified (principal)
CPT/HCPCS: 78452; 93017; A9500

== ENCOUNTER 2022-09-28 12:48 | Outpatient (REF) | payer MEDICARE, MEDICAID, SELFPAY ==
--- NOTE | ~2022-09-28 | US_ITS ---
EXAMINATION: US RETROPERITONEAL LIMITED (RENAL ONLY) CLINICAL INFORMATION: Calculus of ureter. COMPARISON: CT abdomen and pelvis 06/30/2022. Ultrasound abdomen 03/28/2012. TECHNIQUE: Real-time imaging of the kidneys. FINDINGS: RIGHT KIDNEY: 10.1 x 5.3 x 4.4 cm (SAG x AP x TRV). The kidney is normal in size, contour, and echogenicity. Renal cortical thickness is normal. No calculi or focal parenchymal lesions. No hydronephrosis. LEFT KIDNEY: 10.0 x 5.3 x 4.5 cm (SAG x AP x TRV). The kidney is normal in size, contour, and echogenicity. Renal cortical thickness is normal. No calculi or focal parenchymal lesions. No hydronephrosis. US/US renal BI IMPRESSION: Unremarkable examination.
== END 2022-09-28 12:49 | disposition home or self-care (01) ==
LOC: HO.US 12:48
PROVIDERS: PCP Internal Medicine; Visit Provider Urology
DX: N20.1 Calculus of ureter (principal)
CPT/HCPCS: 76775

== ENCOUNTER 2022-10-11 14:41 | Emergency (ER) | payer MEDICARE, MEDICAID, SELFPAY ==
[2022-10-11 16:21] VITALS: BP 150/99; PULSE 65; RESP 18; TEMP 36.7; O2SAT 97; BMI 24.4
--- NOTE | 2022-10-11 16:23 | ED.GENADULT ---
HPI - General Adult General Chief complaint: Back Pain/Injury Stated complaint: lower back pain Time Seen by Provider: 10/11/22 16:23 Source: patient, RN notes reviewed and full time staff interpreter Mode of arrival: ambulatory Limitations: language barrier History of Present Illness HPI narrative: 67-year-old male presents for evaluation of lower back pain. Patient reports he has had worsening lower back pain for the last 5 days He reports he was bent over to ?lift a baked bucket of water. ? His pain is most on the right side may radiates to the left and down his legs He reports a history of sciatica Denies any falls, numbness or tingling Related Data Home Medications Medication Instructions Recorded Confirmed omeprazole 20 mg capsule,delayed 20 mg PO DAILY 05/29/20 07/09/22 release losartan 100 mg tablet 100 mg PO DAILY 03/31/22 07/09/22 metoprolol succinate 100 mg 100 mg PO DAILY 03/31/22 07/09/22 tablet,extended release 24 hr nifedipine 30 mg tablet,extended 30 mg PO DAILY 03/31/22 07/09/22 release spironolactone 25 mg tablet 25 mg PO DAILY 03/31/22 07/09/22 ammonium lactate 12 % topical cream 1 appl topical NEEDED PRN Dry 06/30/22 07/09/22 Skin cetirizine 10 mg tablet 1 tab PO DAILY PRN itch 06/30/22 07/09/22 cholecalciferol (vitamin D3) 25 25 mcg PO DAILY 06/30/22 07/09/22 mcg (1,000 unit) tablet magnesium 200 mg tablet 200 mg PO DAILY 06/30/22 07/09/22 multivitamin (Daily Multi-Vitamin 1 tab PO DAILY 06/30/22 07/09/22 tablet) Previous Rx's Medication Instructions Recorded phenazopyridine 100 mg tablet 100 mg PO Q8H 6 doses #6 tabs 07/05/22 dexamethasone 4 mg tablet 4 mg PO BID #6 tabs 10/11/22 methocarbamol 500 mg tablet 500 mg PO QID PRN muscle spasm #20 10/11/22 tabs tramadol 50 mg tablet 50 mg PO TID PRN severe pain 10/11/22 (scale score 7-10) #10 tabs Allergies Allergy/AdvReac Type Severity Reaction Status Date / Time vitamin E (d-alpha Allergy Itching Verified 10/11/22 16:23 tocopherol) Review of Systems Constitutional: Constitutional: Reports as per HPI, Denies chills, Denies fever(s) and Denies headache(s) ENT: Denies headache(s) Cardiovascular: Cardiovascular: Denies chest pain and Denies dyspnea Respiratory: Respiratory: Denies cough and Denies dyspnea Gastrointestinal: Gastrointestinal: Denies abdominal pain, Denies constipation and Denies vomiting Genitourinary: Genitourinary: Denies difficulty urinating and Denies dysuria Musculoskeletal: Musculoskeletal: Reports back pain Neurologic: Denies headache(s) and Denies focal weakness PMFSH Past Medical History Medical History Bifascicular block Hypertension Lymphoma Surgical History No pertinent past surgical history Family History Family History Mother Recurrent strokes Father Heart disease History of throat cancer Social History Social History Household Members: Spouse Housing: Apartment Do you presently have visiting nurse or other home services: No Alcohol intake: unknown Patient Tobacco Use Status: Never used Tobacco service: No Current occupational status: employed Physical Exam ED Vital Signs: Vital Signs - 24 hr 10/11/22 16:21 Temperature 98.0 F Pulse Rate 65 Respiratory Rate 18 Blood Pressure 150/99 H Pulse Oximetry 97 Oxygen Delivery Method Room Air BMI result Body Mass Index 24.4 Const General: healthy appearing, comfortable, no acute distress, alert and awake Nutritional Appearance: well nourished Orientation/consciousness: patient oriented x3 HENMT Head: Yes normocephalic and Yes atraumatic Throat: Yes posterior oropharynx normal Neck Neck: Yes full ROM Resp Effort & Inspection: normal respiratory effort, able to speak in complete sentences and not labored Cardio Rate: regular rate Rhythm: regular rhythm GI Inspection: No distended Palpation (GI): Soft to palpation, not firm, nontender, no guarding and not rigid Auscultation: normoactive bowel sounds Back/Spine/Pelvis Other: Tenderness across the lumbar paraspinous region without deformity. Negative straight leg raise bilaterally. Skin General skin exam: no rashes or lesions noted and elasticity normal Neuro General: patient oriented x3 Cranial nerves: Yes Bilaterally intact EOM present Cognition (Neuro): normal cognition Extrem Other: Moving all extremities well without any obvious deformities Medical Decision Making Medical Decision Making MDM Narrative: 67-year-old male presents for evaluation of acute on chronic back pain. No warning signs for cauda equina syndrome. Will treat as sciatica. There was no trauma to suggest emergent imaging is indicated. Differential Diagnosis Acute on chronic low back pain Sciatica Radiculopathy Muscle strain Disc herniation Discharge Plan Discharge Clinical Impression: Lower back pain Patient Disposition: Home, Self-Care Instructions: Sciatica (ED) Additional Instructions: Take Decadron twice daily for the next 3 days Use methocarbamol needed for muscle spasms Use tramadol for severe, breakthrough pain This will make you sleepy, do not drink alcohol or drive after taking it You may also use warm compresses to help Follow-up with her primary doctor Prescriptions: New dexamethasone 4 mg tablet 4 mg PO BID Qty: 6 0RF methocarbamol 500 mg tablet 500 mg PO QID PRN (Reason: muscle spasm) Qty: 20 0RF tramadol 50 mg tablet 50 mg PO TID PRN (Reason: severe pain (scale score 7-10)) Qty: 10 0RF No Action phenazopyridine 100 mg tablet 100 mg PO Q8H 0 Days Qty: 6 0RF cetirizine 10 mg tablet 1 tab PO DAILY PRN (Reason: itch) ammonium lactate 12 % cream 1 appl topical NEEDED PRN (Reason: Dry Skin) multivitamin [Daily Multi-Vitamin] Tablet 1 tab PO DAILY magnesium 200 mg Tablet 200 mg PO DAILY cholecalciferol (vitamin D3) 25 mcg (1,000 unit) Tablet 25 mcg PO DAILY omeprazole 20 mg capsule,delayed release(DR/EC) 20 mg PO DAILY metoprolol succinate 100 mg tablet extended release 24 hr 100 mg PO DAILY losartan 100 mg tablet 100 mg PO DAILY nifedipine 30 mg tablet extended release 30 mg PO DAILY spironolactone 25 mg tablet 25 mg PO DAILY
== END 2022-10-11 16:30 | disposition home or self-care (01) ==
LOC: HO.ED 16:29
PROVIDERS: Emergency Provider Emergency Medicine; PCP Internal Medicine
DX: M54.2 Cervicalgia (principal); Z79.899 Other long term (current) drug therapy
CPT/HCPCS: 99282; 99283

== ENCOUNTER → 2022-10-15 09:18 | Outpatient (BNVA) | payer MEDICARE, MEDICAID, SELFPAY | PROVIDERS: PCP Internal Medicine; Visit Provider Urology | DX: N20.0 Calculus of kidney (principal) | CPT/HCPCS: 99212 ==

== ENCOUNTER 2023-01-25 11:09 | Outpatient (REF) | payer MEDICARE, MEDICAID, SELFPAY ==
[2023-01-25 13:27] LABS: MANUAL DIFF FLAG NO
[2023-01-25 13:31] LABS: Basophils Percent Auto 0.6 % (0-2); Eosinophils Absolute Auto 0.1 X10*3/uL (0.0-0.4); Eosinophils Percent Auto 1.6 % (0-4); Hematocrit 44.5 % (42.0-52.0); Hemoglobin 15.5 g/dl (14.0-18.0); Imm Gran Abs Auto 0.02 X10*3/uL (0.00-0.03); Imm Gran Pct Auto 0.3 % (0.0-0.4); Lymphocytes Absolute Auto 2.1 X10*3/uL (1.2-4.9); Lymphocytes Percent Auto 32.3 % (20-40); Mean Corpuscular HGB Conc 34.8 g/dl (31.0-36.0); Mean Corpuscular Volume 97.6 fL (80.0-98.0); Mean Platelet Volume 11.3 fL (9.4-12.4); Monocytes Absolute Auto 0.6 X10*3/uL (0.1-1.2); Neutrophils Absolute Auto 3.5 x10*3/uL (2.0-8.3); Neutrophils Percent Auto 55.2 % (45-73); Platelet Count 133 X10*3/uL (160-400); Red Blood Count 4.56 X10*6/uL (4.60-5.80); White Blood Count 6.4 X10*3/uL (4.8-10.8)
[2023-01-25 13:52] LABS: Anion Gap 13 (12-20); Blood Urea Nitrogen 19 mg/dL (9-16); Calcium 10.1 mg/dL (8.4-10.2); Carbon Dioxide 30 mmol/L (22-29); Chloride 103 mmol/L (96-108); Estimated Glomerular Filt Rate > 60; Glucose Random 109 mg/dL (60-115); Potassium 3.7 mmol/L (3.3-5.1); Sodium 142 mmol/L (135-145)
== END 2023-01-25 11:10 | disposition home or self-care (01) ==
LOC: HO.HHCL 11:09
PROVIDERS: Visit Provider Internal Medicine
DX: I10 Essential (primary) hypertension (principal); L73.9 Follicular disorder, unspecified
CPT/HCPCS: 36415; 80048; 85025

== ENCOUNTER 2023-02-14 18:00 | Outpatient (REF) | payer MEDICARE, MEDICAID, SELFPAY ==
[2023-02-14 18:47] LABS: Influenza A PCR NEGATIVE (Negative); Influenza B PCR NEGATIVE (Negative); Resp Syncy Virus RNA Qual PCR NEGATIVE (Negative); SARS COV2 PCR INHOUSE NEGATIVE (Negative)
== END 2023-02-14 18:01 | disposition home or self-care (01) ==
LOC: HO.HHCLNP 18:00
PROVIDERS: Visit Provider Internal Medicine
DX: R05.1 Acute cough (principal); Z11.52 Encounter for screening for COVID-19
CPT/HCPCS: 0241U

== ENCOUNTER 2023-03-04 16:38 | Outpatient (REF) | payer MEDICARE, MEDICAID, SELFPAY ==
--- NOTE | ~2023-03-04 | CT_ITS ---
EXAMINATION: CT HEAD WITHOUT CONTRAST CLINICAL INFORMATION: Severe headaches and forgetfulness. COMPARISON: None. TECHNIQUE: Contiguous axial imaging was performed from the skullbase to vertex without intravenous administration of contrast. This CT examination was performed using dose optimization techniques as appropriate, variously including the following: *Automated exposure control *Adjustment of mA and/or kV according to patient size (this includes techniques or standardized protocols for targeted exams where dose is matched to indication/reason for exam; i.e. extremities or head) *Use of iterative reconstruction technique DLP: 788 mGy-cm. FINDINGS: There is no evidence of acute intracranial hemorrhage or territorial infarction. No abnormal mass effect or midline shift is seen. Weston to white matter differentiation is well preserved. No extra-axial fluid collections are identified. The ventricles are normal in size. There is no abnormal attenuation within the brain parenchyma. The osseous structures and soft tissues are normal. The mastoid air cells and visualized portions of the paranasal sinuses are well aerated. CT/CT head/brain wo IV con IMPRESSION: No acute intracranial pathology.
== END 2023-03-04 16:39 | disposition home or self-care (01) ==
LOC: HO.CT 16:38
PROVIDERS: PCP Internal Medicine; Visit Provider Internal Medicine
DX: R51.9 Headache, unspecified (principal)
CPT/HCPCS: 70450

== ENCOUNTER 2023-03-22 12:42 | Outpatient (REF) | payer MEDICARE, SELFPAY ==
[2023-03-22 14:07] LABS: Syphilis Screen Nonreactive (Nonreactive)
[2023-03-22 14:13] LABS: Folate 13.6 ng/mL (> or = 4.0); Vitamin B12 1156 pg/mL (200-900)
[2023-03-23 08:54] LABS: Lyme Abs Screen <0.90 index
== END 2023-03-22 12:43 | disposition home or self-care (01) ==
LOC: HO.LAB 12:42
PROVIDERS: Visit Provider Psychiatry & Neurology Neurology
DX: G31.84 Mild cognitive impairment of uncertain or unknown etiology (principal)
CPT/HCPCS: 36415; 82607; 82746; 86617; 86618; 86780

== ENCOUNTER 2023-03-30 14:20 | Outpatient (AMB) | payer MEDICARE, SELFPAY ==
[2023-03-30 14:22] VITALS: BP 120/72; PULSE 90; BMI 24.2
--- NOTE | 2023-03-30 14:22 | A.OFFVIS_ITS ---
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 Tractor Crane Engineer Name: vasquez/yamini Accompanied by: Self / Same As Patient Allergies vitamin E (d-alpha tocopherol) Allergy (Verified 10/11/22 16:23) Itching Medication List - Last Reconciled 03/30/23 by Mayank Lopez MD ammonium lactate 12% 1 appl topical NEEDED PRN cetirizine 1 tab PO DAILY PRN cholecalciferol (vitamin D3) 25 mcg PO DAILY methocarbamol 500 mg PO QID PRN metoprolol succinate ER 100 mg PO DAILY multivitamin (Daily Multi-Vitamin tablet) 1 tab PO DAILY nifedipine ER 30 mg PO DAILY omeprazole 20 mg PO DAILY spironolactone 25 mg PO DAILY tramadol 50 mg PO TID PRN HPI HPI Comments History of Present Illness Details 67-year-old gentleman with 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 He was seen for left sided sharp/throbbing chest pain off and on. ECG: RBBB, LAFB, no ischemic changes, LVH with QRS widening. Echocardiography showed normal biventricular function without any valvular disease. He has hypertension. He is seeing Nephrology. on follow-up today he is doing well. He is taking his medications regularly including losartan, metoprolol and nifedipine along with spironolactone. His blood pressure control is excellent. Denying any chest discomfort shortness of breath. Continues to have bifascicular block on his EKG. No syncope or dizziness. 03/30/2023: He returns for follow-up. He has been doing well. No chest pain shortness of breath. Blood pressure control is perfect currently he is taking nifedipine, spironolactone and metoprolol. [facility], [facility] Medical History Bifascicular block Hypertension Lymphoma Surgical History No pertinent past surgical history Family History Mother Recurrent strokes Father Heart disease History of throat cancer Social History Household Members: Spouse Housing: Apartment Do you presently have visiting nurse or other home services: No Alcohol intake: unknown Patient Tobacco Use Status: Never used Tobacco service: No Current occupational status: employed Review of Systems Const Reports chills, Reports fatigue, Reports fever(s), Reports frequent falls, Reports weakness, Reports weight gain and Reports weight loss ENT Reports dizziness Card Reports chest pain, Reports leg edema, Reports lightheadedness, Reports palpitations, Reports dyspnea and Reports dyspnea on exertion Resp Reports cough, Reports dyspnea and Reports dyspnea on exertion GI Reports hematochezia Musc Reports abnormal gait, Reports muscle weakness, Reports numbness, Reports radiating pain into limb and Reports tingling Neuro Reports abnormal gait, Reports dizziness, Reports frequent falls, Reports numbness, Reports tingling and Reports weakness Endo Reports fatigue and Reports palpitations Physical Exam Vital Signs: Last Vital Signs Pulse 90 03/30/23 14:22 BP 120/72 03/30/23 14:22 BMI result Body Mass Index 24.2 GENERAL APPEARANCE: in no acute distress, well developed, well nourished. NECK/THYROID: no carotid bruit, no jugular venous distention. SKIN: no suspicious lesions, warm and dry. HEART: no murmurs, regular rate and rhythm, S1, S2 normal. LUNGS: clear to auscultation bilaterally. ABDOMEN: soft, nontender, nondistended. EXTREMITIES: no edema. PERIPHERAL PULSES: equal. NEUROLOGIC: alert and oriented, nonfocal. PSYCH: normal affect. Assessment & Plan Assessment & Plan (1) Hypertension: Code(s): I10 - Essential (primary) hypertension Qualifiers: Hypertension type: primary hypertension Qualified Code(s): I10 - Essential (primary) hypertension (2) Bifascicular block: Code(s): I45.2 - Bifascicular block Plan Pleasant 67 gentleman is here for follow-up. He has history of hypertension and bifascicular block. Clinically stable and has no chest discomfort shortness of breath. No syncope in the past. Blood pressure control is good. He will follow-up with us in 1 year. We will repeat EKG on next visit. Thank you for allowing me to participate in the care of your patient. Please feel free to contact me if you have any questions. Coding Level of Care Code Est Pt Level 3 (37120) Diagnoses Essential hypertension I10 Hypertension type: primary hypertension Bifascicular block I45.2
== END 2023-03-30 15:04 | disposition home or self-care (01) ==
PROVIDERS: Visit Provider Internal Medicine Cardiovascular Disease
DX: I10 Essential (primary) hypertension (principal); I45.2 Bifascicular block
CPT/HCPCS: 99213

== ENCOUNTER → 2023-03-30 14:20 | Outpatient (BNVA) | payer MEDICARE, SELFPAY | PROVIDERS: Visit Provider Internal Medicine Cardiovascular Disease | DX: I45.2 Bifascicular block (principal); I10 Essential (primary) hypertension | CPT/HCPCS: 99212 ==

== ENCOUNTER → 2023-04-12 10:04 | Outpatient (BNVA) | payer SELFPAY | PROVIDERS: PCP Internal Medicine; Visit Provider Physician Assistant | DX: Z02.79 Encounter for issue of other medical certificate (principal) ==

== ENCOUNTER 2023-04-29 12:38 | Outpatient (REF) | payer MEDICARE, SELFPAY | END 2023-04-29 12:39 | disposition home or self-care (01) | LOC: HO.HHCX 12:38 | PROVIDERS: Visit Provider Registered Nurse | DX: R05.2 Subacute cough (principal) | CPT/HCPCS: 71046 ==

== ENCOUNTER 2023-06-02 10:57 | Outpatient (REF) | payer MEDICARE, MEDICAID, SELFPAY ==
[2023-06-03 19:29] LABS: RPR Rapid Plasma Reagin NON-REACTIVE (NON-REACTIVE)
== END 2023-06-02 10:58 | disposition home or self-care (01) ==
LOC: HO.HHCL 10:57
PROVIDERS: Visit Provider Internal Medicine
DX: R46.89 Other symptoms and signs involving appearance and behavior (principal); R68.89 Other general symptoms and signs
CPT/HCPCS: 36415; 86592

== ENCOUNTER 2023-06-27 15:17 | Outpatient (REF) | payer MEDICARE, MEDICAID, SELFPAY ==
--- NOTE | ~2023-06-27 | US_ITS ---
EXAMINATION: US SCROTUM CLINICAL INFORMATION: Testicular pain. COMPARISON: Ultrasound scrotum 02/06/2019. TECHNIQUE: A sonogram of the scrotum was performed assessing galan-scale appearance and color Doppler flow. Spectral Doppler analysis of the arterial and venous flow were performed in the testes bilaterally. FINDINGS: RIGHT: Right testicle measures 3.6 x 1.8 x 2.2 cm, volume 7.5 mL. No focal testicular parenchymal lesions are visualized. Spectral Doppler analysis of the arterial and venous flow is normal in the right testis. Right epididymal head is normal in size and contains a 3 mm cyst. There is also a 3 mm cyst in the body of the epididymis which correlates with a palpable mass. No right hydrocele is seen. A right-sided varicocele is present with veins increasing from 1.4 mm at 2.0 mm with Valsalva. Right epididymal Doppler flow is normal. LEFT: Left testicle measures 3.5 x 1.8 x 2.2 cm, volume 7.5 mL. No focal testicular parenchymal lesions are visualized. Spectral Doppler analysis of the arterial and venous flow is normal in the left testis. Left epididymal head is normal in size and contains a 4 mm cyst. No left hydrocele. A small left-sided varicocele is present with veins increasing from 2.7 mm to 3.8 mm with Valsalva.. Left epididymal Doppler flow is normal. US/US scrotum IMPRESSION: 1. Bilateral varicoceles. 2. Bilateral epididymal cysts. 3. The palpable mass on the right correlates with a 3 mm epididymal cyst.
== END 2023-06-27 15:18 | disposition home or self-care (01) ==
LOC: HO.US 15:17
PROVIDERS: PCP Internal Medicine; Visit Provider Internal Medicine
DX: N50.811 Right testicular pain (principal); N50.812 Left testicular pain
CPT/HCPCS: 76870

== ENCOUNTER 2023-06-28 10:41 | Outpatient (REF) | payer MEDICARE, MEDICAID, SELFPAY ==
[2023-06-29 08:52] LABS: Syphilis Screen Nonreactive (Nonreactive)
== END 2023-06-28 10:42 | disposition home or self-care (01) ==
LOC: HO.HHCL 10:41
PROVIDERS: Visit Provider Internal Medicine
DX: R68.89 Other general symptoms and signs (principal)
CPT/HCPCS: 36415; 86780

== ENCOUNTER 2023-07-15 11:52 | Outpatient (REF) | payer MEDICARE, MEDICAID, SELFPAY ==
[2023-07-15 13:16] LABS: MANUAL DIFF FLAG NO
[2023-07-15 13:17] LABS: Basophils Percent Auto 0.3 % (0-2); Eosinophils Absolute Auto 0.2 X10*3/uL (0.0-0.4); Eosinophils Percent Auto 2.5 % (0-4); Hematocrit 40.2 % (42.0-52.0); Hemoglobin 14.2 g/dl (14.0-18.0); Imm Gran Abs Auto 0.02 X10*3/uL (0.00-0.03); Imm Gran Pct Auto 0.3 % (0.0-0.4); Lymphocytes Absolute Auto 2.4 X10*3/uL (1.2-4.9); Mean Corpuscular HGB Conc 35.3 g/dl (31.0-36.0); Mean Corpuscular Hemoglobin 34.1 pg (27.0-33.0); Mean Corpuscular Volume 96.4 fL (80.0-98.0); Mean Platelet Volume 11.3 fL (9.4-12.4); Monocytes Absolute Auto 0.5 X10*3/uL (0.1-1.2); Monocytes Percent Auto 8.3 % (2-11); Neutrophils Absolute Auto 3.3 x10*3/uL (2.0-8.3); Neutrophils Percent Auto 51.6 % (45-73); Platelet Count 132 X10*3/uL (160-400); Red Blood Count 4.17 X10*6/uL (4.60-5.80); Red Cell Distribution Width 12.4 % (11.0-16.0); White Blood Count 6.4 X10*3/uL (4.8-10.8)
== END 2023-07-15 11:53 | disposition home or self-care (01) ==
LOC: HO.HHCL 11:52
PROVIDERS: Visit Provider Family Medicine
DX: R59.1 Generalized enlarged lymph nodes (principal)
CPT/HCPCS: 36415; 85025

== ENCOUNTER 2023-10-10 09:22 | Outpatient (REF) | payer OTHER, SELFPAY ==
--- NOTE | ~2023-10-10 | US_ITS ---
EXAMINATION: US RETROPERITONEAL LIMITED (RENAL ONLY) CLINICAL INFORMATION: Calculus of kidney. COMPARISON: Renal ultrasound 09/28/2022. CT abdomen and pelvis 06/30/2022. Ultrasound abdomen 03/28/2012. TECHNIQUE: Real-time imaging of the kidneys. FINDINGS: RIGHT KIDNEY: 9.2 x 4.4 x 4.6 cm (SAG x AP x TRV). The kidney is normal in size, contour, and echogenicity. Renal cortical thickness is normal. No calculi or focal parenchymal lesions. No hydronephrosis. LEFT KIDNEY: 9.7 x 4.3 x 4.5 cm (SAG x AP x TRV). The kidney is normal in size, contour, and echogenicity. Renal cortical thickness is normal. No calculi or focal parenchymal lesions. No hydronephrosis. US/US renal BI IMPRESSION: No nephrolithiasis or hydronephrosis.
== END 2023-10-10 09:23 | disposition home or self-care (01) ==
LOC: HO.US 09:22
PROVIDERS: PCP Internal Medicine; Visit Provider Urology
DX: N20.0 Calculus of kidney (principal)
CPT/HCPCS: 76775

== ENCOUNTER 2023-10-19 10:28 | Outpatient (AMB) | payer OTHER, SELFPAY ==
--- NOTE | 2023-10-19 10:39 | MHC.OFFVIS ---
Intake Visit Reasons: 1Y Renal/Scrotum US(set) Intake Note: Patient presents to the office today for a 1 year renal/scrotum US. Urology Med: None Antibiotic Allergy: None Blood Thinner: None Allergies vitamin E (d-alpha tocopherol) Allergy (Verified 10/19/23 10:39) Itching Medication List - Last Reconciled 10/19/23 by Thony Walker MD ammonium lactate 12% 1 appl topical NEEDED PRN cetirizine 1 tab PO DAILY PRN cholecalciferol (vitamin D3) 25 mcg PO DAILY methocarbamol 500 mg PO QID PRN metoprolol succinate ER 100 mg PO DAILY multivitamin (Daily Multi-Vitamin tablet) 1 tab PO DAILY nifedipine ER 30 mg PO DAILY omeprazole 20 mg PO DAILY spironolactone 25 mg PO DAILY tramadol 50 mg PO TID PRN HPI Comments Details: Vasyl is a pleasant Chilean-speaking male. He is a patient of Dr. Castañeda. He is seen for the following urologic conditions - nephrolithiasis - low libido Chilean translation provided by qualified medical chemist Current ultrasound no evidence of disease Continue yearly evaluation for 5 years total Reports low libido. Lack of morning erections. Declining erectile quality. Recommend baseline testosterone evaluation Nephrolithiasis Underwent ureteroscopy for proximal left ureteric stone Imaging 07/15 CT scan 6 mm proximal left ureteric stone 10/16 renal ultrasound no evidence of stones Stone composition 07/15 calcium oxalate monohydrate 80% Therapeutic plan - 64 oz fluid intake - lemon water therapy PFSH Medical History Bifascicular block Hypertension Lymphoma Surgical History No pertinent past surgical history Family History Mother Recurrent strokes Father Heart disease History of throat cancer Social History Household Members: Spouse Housing: Apartment Do you presently have visiting nurse or other home services: No Alcohol intake: unknown Patient Tobacco Use Status: Never used Tobacco service: No Current occupational status: employed Review of Systems Const Denies chills and Denies fever(s) Card Reports no additional complaints and Denies syncope Resp Denies cough GI Denies abdominal pain and Denies heartburn Reports as per HPI and Denies change in libido Neuro Denies syncope Psych Denies change in libido Endo Denies change in libido Physical Exam Const General: cooperative, healthy appearing, comfortable and no acute distress Orientation/consciousness: patient oriented x3 HEENT Face and sinus: Yes normal facial exam Mouth: moist mucous membranes Neck Neck: Yes normal visual inspection, Yes full ROM and Yes trachea midline Chest Chest palpation & inspection: normal inspection of the chest Resp Effort & Inspection: normal respiratory effort, able to speak in complete sentences and no respiratory distress GI Inspection: Yes normal to inspection Back/Spine/Pelvis Cervical Spine: normal cervical lordosis Thoracic/Lumbar Spine: thoracic and lumbar spine normal to inspection Skin General skin exam: no rashes or lesions noted Neuro General: patient oriented x3, gait normal, tone normal and moves all extremities Extrem General: Yes normal to inspection and Yes capillary refill normal Assessment & Plan Assessment & Plan (1) Low libido: Code(s): R68.82 - Decreased libido Category: Medical (2) Nephrolithiasis: Code(s): N20.0 - Calculus of kidney Category: Medical Plan Lab work today in 1 month Two month follow-up office Orders: Orders Testosterone, Free/Total Today R68.82 - Decreased libido Sex Hormone Binding Globulin Today R68.82 - Decreased libido Testosterone, Free/Total 1 Month R68.82 - Decreased libido Lutenizing Hormone Today E11.69 - Type 2 diabetes mellitus with other specified complication, N52.1 - Erectile dysfunction due to diseases classified elsewhere, R68.82 - Decreased libido Estradiol Ultra Sensitive Today E29.1 - Testicular hypofunction, R68.82 - Decreased libido Follicle Stimulating Hormone Today R68.82 - Decreased libido Patient Instructions: Imaging studies, laboratory and physical exam results were discussed and reviewed in detail. No major barriers to patient understanding were identified. An opportunity to ask questions regarding the treatment plan was provided. All questions were answered. The patient expressed understanding and agreement with the above treatment plan. The patient is aware they should contact our office by phone for worsening of their current condition or the appearance of new urologic symptoms. Compliance is encouraged with any medications and followup testing that is ordered. It is a privilege to participate in the urologic care of your patient. If you have any questions or concerns regarding treatment for the above conditions, or other urologic issues, please do not hesitate to contact me. The office telephone contact is [phone]. This note is constructed using voice recognition software. While every effort has been made to ensure accuracy chief bank examiner errors may have been included. Yours sincerely, Dr Thony Walker MD, [facility] - Urology Providers of Expert, Compassionate Care for the Genitourinary System Coding Level of Care Code Est Pt Level 4 (27012) Diagnoses Low libido R68.82 Nephrolithiasis N20.0
== END 2023-10-19 11:16 | disposition home or self-care (01) ==
PROVIDERS: PCP Internal Medicine; Visit Provider Urology
DX: R68.82 Decreased libido (principal); N20.0 Calculus of kidney
CPT/HCPCS: 99214

== ENCOUNTER → 2023-10-19 10:28 | Outpatient (BNVA) | payer OTHER, SELFPAY | PROVIDERS: PCP Internal Medicine; Visit Provider Urology | DX: N20.0 Calculus of kidney (principal); R68.82 Decreased libido | CPT/HCPCS: 99212 ==

== ENCOUNTER 2023-10-20 10:13 | Outpatient (REF) | payer OTHER, SELFPAY ==
[2023-10-21 09:04] LABS: Follicle Stimulating Hormone 15.1 mIU/mL (1.4-12.8); Lutenizing Hormone 7.4 mIU/mL (1.6-15.2); Sex Hormone Binding Globulin 16 nmol/L (22-77)
[2023-10-25 14:04] LABS: Testosterone, Free 60.8 pg/mL (35.0-155.0); Testosterone, Total 247 ng/dL (250-1100)
[2023-10-27 22:39] LABS: Estradiol Ultra Sensitive 16 pg/mL (< OR = 29)
== END 2023-10-20 10:14 | disposition home or self-care (01) ==
LOC: HO.LAB 10:13
PROVIDERS: PCP Internal Medicine; Visit Provider Urology
DX: R68.82 Decreased libido (principal); E11.69 Type 2 diabetes mellitus with other specified complication; N52.1 Erectile dysfunction due to diseases classified elsewhere; E29.1 Testicular hypofunction
CPT/HCPCS: 36415; 82670; 83001; 83002; 84270; 84402; 84403

== ENCOUNTER 2023-10-26 20:00 | Outpatient (REF) | payer MEDICARE, OTHER, SELFPAY ==
--- NOTE | ~2023-10-26 | MR_ITS ---
EXAMINATION: MR LUMBAR SPINE WITHOUT CONTRAST CLINICAL INFORMATION: Severe low back pain radiating down left leg, positive SLR on left COMPARISON: MRI lumbar spine on 12/01/2017. TECHNIQUE: MRI of the lumbar spine was obtained using routine sequences without contrast. FINDINGS: Normal alignment. No acute bone marrow abnormality. The vertebral body heights are preserved. Multilevel disc desiccation without significant disc height loss. The visualized spinal cord is normal in caliber. No abnormal cord signal. The conus medullaris terminates at L1. T12-L1: No significant spinal canal or neural foraminal narrowing. L1-L2: No significant spinal canal or neural foraminal narrowing. L2-L3: Bilateral facet arthrosis. No significant spinal canal stenosis. Mild right neural foraminal narrowing. L3-L4: Diffuse disc bulge with superimposed right foraminal disc protrusion. Prominent dorsal epidural fat and bilateral facet arthrosis. New mild spinal canal stenosis. Mild to moderate right and mild left neural foraminal narrowing with the disc abutting the right exiting L3 nerve roots. L4-L5: Diffuse disc bulge with superimposed right foraminal annular fissure. Prominent dorsal epidural fat and bilateral facet arthrosis. No significant spinal canal stenosis. Mild to moderate right and mild left neural foraminal narrowing with the disc abutting the right exiting L4 nerve roots. L5-S1: Diffuse disc bulge with superimposed left paracentral disc protrusion which abuts the left transiting S1 nerve roots. No significant spinal canal stenosis. Mild right neural foraminal narrowing. The paravertebral soft tissues are unremarkable. MR/MR lumbar spine wo con IMPRESSION: -Multilevel lumbar spondylosis as described above. There is a left paracentral disc protrusion at L5-S1 which abuts the left transiting S1 nerve roots. There is also a new mild spinal canal stenosis at L3-L4. Mild to moderate right neural foraminal narrowing at L3-L4 and L4-L5 with disc abutting the right exiting L3 and L4 nerve roots. -Right foraminal annular fissure at L4-L5.
== END 2023-10-26 20:01 | disposition home or self-care (01) ==
LOC: HO.MRI 20:00
PROVIDERS: PCP Family Medicine; Visit Provider Family Medicine
DX: M54.42 Lumbago with sciatica, left side (principal)
CPT/HCPCS: 72148

== ENCOUNTER 2023-11-29 09:23 | Outpatient (REF) | payer MEDICARE, SELFPAY ==
[2023-11-29 11:26] LABS: Hematocrit 40.3 % (42.0-52.0); Hemoglobin 14.3 g/dl (14.0-18.0); Mean Corpuscular HGB Conc 35.5 g/dl (31.0-36.0); Mean Corpuscular Hemoglobin 33.9 pg (27.0-33.0); Mean Corpuscular Volume 95.5 fL (80.0-98.0); Mean Platelet Volume 11.4 fL (9.4-12.4); Platelet Count 151 X10*3/uL (160-400); Red Blood Count 4.22 X10*6/uL (4.60-5.80); Red Cell Distribution Width 12.3 % (11.0-16.0); White Blood Count 8.6 X10*3/uL (4.8-10.8)
[2023-11-29 11:43] LABS: Estimated Average Glucose 117 mg/dL; Hemoglobin A1c % 5.7 % (<6.0)
[2023-11-29 11:59] LABS: Hepatitis A Antibody IgG REACTIVE (Nonreactive); ~Hepatitis A Antibody IgG 11.44 S/CO (0.00-0.99)
[2023-11-29 12:00] LABS: HBS Num1 2.23 mIU/mL (0-7.99); HBc Num1 0.28 S/CO (0.00-0.79); HBsAGNum1 0.26 S/CO (0.00-0.99); HIV AB/AG Nonreactive (Nonreactive); HIV Num 1 0.05 S/CO (0.00-0.99); Hepatitis B Core Antibody Nonreactive (Nonreactive); Hepatitis B Surface Antigen Negative (Negative); ~HepC Num1 0.14 S/CO (0.00-0.79); ~Hepatitis B Surface Antibody NONREACTIVE (Nonreactive); ~Hepatitis C Antibody Nonreactive (Nonreactive)
[2023-11-29 12:00] LABS: Creatinine Urine 176.35 mg/dL; Microalbum/Creatinine Ratio Ur 47.6 ug/mg cr (<30)
[2023-11-29 12:03] LABS: Alanine Aminotransferase 18 U/L (0-40); Albumin Level 4.3 g/dL (3.5-5.0); Alkaline Phosphatase 59 U/L (39-117); Anion Gap 13 (12-20); Aspartate Amino Transferase 19 U/L (5-37); Bilirubin Direct 0.2 mg/dL (0.0-0.5); Bilirubin Total 0.7 mg/dL (0.0-1.0); Blood Urea Nitrogen 18 mg/dL (9-16); Calcium 9.6 mg/dL (8.4-10.2); Carbon Dioxide 29 mmol/L (22-29); Chloride 103 mmol/L (96-108); Cholesterol 167 mg/dL (<200); Estimated Glomerular Filt Rate 60; Glucose Random 131 mg/dL (60-115); HDL Cholesterol 44 mg/dL (>40); LDL Cholesterol Calculated 107 mg/dL (<100); Sodium 141 mmol/L (135-145); Total Protein 7.5 g/dL (6.5-8.0); Triglycerides 80 mg/dL (<150)
[2023-11-29 12:04] LABS: Free T4 (Free Thyroxine) 0.96 ng/dL (0.71-1.85); Thyroid Stimulating Hormone 1.02 uIU/mL (0.32-4.0); Vitamin D 25-OH Total 51.4 ng/mL (>30)
[2023-11-30 12:23] LABS: RPR Rapid Plasma Reagin NON-REACTIVE (NON-REACTIVE)
== END 2023-11-29 09:24 | disposition home or self-care (01) ==
LOC: HO.HHCL 09:23
PROVIDERS: Visit Provider Family Medicine
DX: Z00.00 Encounter for general adult medical examination without abnormal findings (principal); I10 Essential (primary) hypertension; N18.2 Chronic kidney disease, stage 2 (mild); M54.42 Lumbago with sciatica, left side; G89.29 Other chronic pain; N50.82 Scrotal pain; L29.9 Pruritus, unspecified; Z85.72 Personal history of non-Hodgkin lymphomas; Z68.24 Body mass index [BMI] 24.0-24.9, adult; Z11.59 Encounter for screening for other viral diseases; R79.9 Abnormal finding of blood chemistry, unspecified; E55.9 Vitamin D deficiency, unspecified; Z11.3 Encounter for screening for infections with a predominantly sexual mode of transmission; Z72.89 Other problems related to lifestyle
CPT/HCPCS: 36415; 80048; 80061; 80076; 82043; 82306; 82570; 83036; 84439; 84443; 85027; 86592; 86704; 86706; 86708; 86803; 87340; 87389

== ENCOUNTER 2024-01-23 09:59 | Outpatient (AMB) | payer MEDICARE, MEDICAID, SELFPAY ==
--- NOTE | 2024-01-23 10:01 | HO.SPINEOV ---
Intake Visit Reasons: LBP Intake Note: Mr. Shravan Mari is here today c/o Low back pain. Slip Caster Required: No Allergies vitamin E (d-alpha tocopherol) Allergy (Verified 10/19/23 10:39) Itching Assessment & Plan Assessment & Plan (1) Lumbar radiculopathy: Code(s): M54.16 - Radiculopathy, lumbar region Category: Medical Plan Dear Dr. Santiago, Thank you for referring Vasyl to our office today. He is a pleasant 68 y/o male who comes in today with a low back pain and shooting pains into his left lower extremity. When describing the radiation of his pain he runs his hand down the posterior aspect of his left leg terminating near the left ankle. He states that this began 2-3 months ago after he landed hard on both feet when attempting to stabilize himself in the midst of a fall. Since then he has had waxing/waning severity of shooting pain down his left lower extremity originating in his low back. He reports that he has tried fzzv-qcv-hjfqida medications including Tylenol & ibuprofen in an attempt to mitigate this pain. In addition to this he has tried prescription medications such as baclofen and tramadol. He feels these medications have only provided modest relief. He did try ?a couple of weeks of physical therapy which he states was very beneficial in helping with his pain. His pain is not to the point where it is waking him up at night or significantly interfering with his daily activities. He denies any numbness/tingling/weakness associated with the pain. PMH: BPH, CKD, depressive disorder, erectile dysfunction, hypertension, nephrolithiasis, cholelithiasis, eczema, history of B-cell lymphoma in remission. Bifascicular heart block. Social hx: Patient does not smoke, reports no substance use. Medications: Ammonium lactate, cetirizine, vitamin D3, Methocarbamol, metoprolol, MVI, nifedipine, omeprazole, spironolactone, tramadol. Allergies: Vitamin E. Physical exam: The patient has 5/5 strength in his upper and lower extremities. He is able to ambulate well without a notably antalgic gait. He rises from a seated position without difficulty. (-) bilateral straight leg raise, (-) Tucker's, (-) clonus. Imaging review: MRI of the lumbar spine completed here at [facility] on 10/26/2023 shows left-sided paracentral disc herniation at L5-S1 causing effacement of the exiting S1 nerve root on the left. Impression: Vasyl is a pleasant 68-year-old male who comes in today about 2-3 months out from a lumbar disc herniation. His radiculopathy is fairly classic for a left-sided S1 nerve root impingement, however it spares the bottom of the foot, and also includes the left lateral ankle. He spoke very highly of his previous experience in physical therapy and endorsed good relief with this. His pain is not to the point where it is significantly impacting his sleep or ADLs. There is no associated weakness or numbness. I think attempting another course of physical therapy and providing Vasyl with a prednisone Dosepak in the interim may help to ameliorate some of his symptoms. A large majority of disc herniations are able to resorb on their own, so I believe his best treatment is the tincture of time in conjunction with the previous two mentioned interventions. If his pain increases with severity and does not improve he is encouraged to call our office for a subsequent evaluation. Thank you for allowing us to care for your patient. The total time spent with this visit with this patient was 48 minutes reviewing history, physical exam, MRI imaging review, and implementation of treatment plan or further diagnostic testing. Brooks Kaplan MD,PhD [facility] Orders: Orders PT Evaluation and Treatment Today M54.16 - Radiculopathy, lumbar region Coding Level of Care Code New Pt Level 4 (01984) Diagnoses Lumbar radiculopathy M54.16
== END 2024-01-23 10:38 | disposition home or self-care (01) ==
PROVIDERS: PCP Family Medicine; Referring Provider Family Medicine; Visit Provider Physician Assistant
DX: M54.16 Radiculopathy, lumbar region (principal)
CPT/HCPCS: 99204

== ENCOUNTER → 2024-01-23 09:59 | Outpatient (BNVA) | payer MEDICARE, MEDICAID, SELFPAY | PROVIDERS: PCP Family Medicine; Visit Provider Physician Assistant | DX: M54.16 Radiculopathy, lumbar region (principal) | CPT/HCPCS: 99202 ==

== ENCOUNTER 2024-01-30 16:29 | Outpatient (REF) | payer MEDICARE, MEDICAID, SELFPAY ==
[2024-02-02 00:59] LABS: TS Negative Control Passed; TS Panel A 47; TS Panel B 19; TS Positive Control Passed; TSpotTB Positive (Negative)
[2024-02-03 18:19] LABS: Testosterone, Free 71.8 pg/mL (35.0-155.0); Testosterone, Total 287 ng/dL (250-1100)
== END 2024-01-30 16:30 | disposition home or self-care (01) ==
LOC: HO.LAB 16:29
PROVIDERS: PCP Family Medicine; Visit Provider Urology
DX: Z00.00 Encounter for general adult medical examination without abnormal findings (principal); I10 Essential (primary) hypertension; N18.2 Chronic kidney disease, stage 2 (mild); M54.42 Lumbago with sciatica, left side; G89.29 Other chronic pain; N50.82 Scrotal pain; L29.9 Pruritus, unspecified; Z85.72 Personal history of non-Hodgkin lymphomas; Z68.24 Body mass index [BMI] 24.0-24.9, adult; R68.82 Decreased libido
CPT/HCPCS: 36415; 84402; 84403; 86481

== ENCOUNTER 2024-01-31 09:43 | Outpatient (REF) | payer MEDICARE, MEDICAID, SELFPAY ==
[2024-01-31 11:55] LABS: CT PCR NOT DETECTED (Not Detect.); NG PCR NOT DETECTED (Not Detect.)
== END 2024-01-31 09:44 | disposition home or self-care (01) ==
LOC: HO.LNP 09:43
PROVIDERS: Visit Provider Internal Medicine
DX: R68.82 Decreased libido (principal); E29.1 Testicular hypofunction; Z00.00 Encounter for general adult medical examination without abnormal findings; I12.9 Hypertensive chronic kidney disease with stage 1 through stage 4 chronic kidney disease, or unspecified chronic kidney disease; N18.2 Chronic kidney disease, stage 2 (mild); M54.42 Lumbago with sciatica, left side; G89.29 Other chronic pain; L29.9 Pruritus, unspecified; N50.82 Scrotal pain; Z85.72 Personal history of non-Hodgkin lymphomas; Z11.3 Encounter for screening for infections with a predominantly sexual mode of transmission; Z20.2 Contact with and (suspected) exposure to infections with a predominantly sexual mode of transmission
CPT/HCPCS: 87491; 87591; 99212

== ENCOUNTER 2024-01-31 10:11 | Outpatient (AMB) | payer OTHER, SELFPAY ==
--- NOTE | 2024-01-31 10:48 | MHC.OFFVIS ---
Intake Visit Reasons: lab Results(set) Intake Note: Patient is Present for Follow Up Labs Urology Medication: None Antibiotic Allergies:None Blood Thinners: None Recent LABS: 10/20/2023 Total Testosterone: 247 LH- 7.4 FSH- 15.1 SHBG- 16 Steel Rule Inspector Required: Yes Steel Rule Inspector Language: Offal Separator Services: Steel Rule Inspector Present Information Interpreted: clinical only Accompanied by: Self / Same As Patient Allergies vitamin E (d-alpha tocopherol) Allergy (Verified 01/31/24 10:50) Itching HPI Comments Details: Vasyl is a pleasant Bruneian-speaking male. He is a patient of Dr. Castañeda. He is seen for the following urologic conditions - nephrolithiasis - low libido Bruneian translation provided by qualified ophthalmic medical technician Lab work shows low testosterone Would initiate gel therapy Repeat labs at three-month Discussed application Male hypogonadism States progressive low libido Lack of morning erections at initial evaluation Declining erectile quality Baseline labs 10/16 T 247 FT 60 FSH 15 LH 7.4 Nephrolithiasis Underwent ureteroscopy for proximal left ureteric stone Imaging 07/15 CT scan 6 mm proximal left ureteric stone 10/16 renal ultrasound no evidence of stones Stone composition 07/15 calcium oxalate monohydrate 80% Therapeutic plan - 64 oz fluid intake - lemon water therapy PFSH Medical History Bifascicular block Hypertension Lymphoma Surgical History No pertinent past surgical history Family History Mother Recurrent strokes Father Heart disease History of throat cancer Social History Household Members: Spouse Housing: Apartment Do you presently have visiting nurse or other home services: No Alcohol intake: unknown Patient Tobacco Use Status: Never used Tobacco service: No Current occupational status: employed Review of Systems Const Denies chills and Denies fever(s) Card Reports no additional complaints and Denies syncope Resp Denies cough GI Denies abdominal pain and Denies heartburn Reports as per HPI and Denies change in libido Neuro Denies syncope Psych Denies change in libido Endo Denies change in libido Physical Exam Const General: cooperative, healthy appearing, comfortable and no acute distress Orientation/consciousness: patient oriented x3 HEENT Face and sinus: Yes normal facial exam Mouth: moist mucous membranes Neck Neck: Yes normal visual inspection, Yes full ROM and Yes trachea midline Chest Chest palpation & inspection: normal inspection of the chest Resp Effort & Inspection: normal respiratory effort, able to speak in complete sentences and no respiratory distress GI Inspection: Yes normal to inspection Back/Spine/Pelvis Cervical Spine: normal cervical lordosis Thoracic/Lumbar Spine: thoracic and lumbar spine normal to inspection Skin General skin exam: no rashes or lesions noted Neuro General: patient oriented x3, gait normal, tone normal and moves all extremities Extrem General: Yes normal to inspection and Yes capillary refill normal Assessment & Plan Assessment & Plan (1) Low testosterone: Code(s): R79.89 - Other specified abnormal findings of blood chemistry Category: Medical (2) Low libido: Code(s): R68.82 - Decreased libido Category: Medical Plan Initiate testosterone Repeat labs in 10 weeks Orders: Orders Testosterone, Free/Total 10 Weeks R79.89 - Other specified abnormal findings of blood chemistry Medications: New testosterone Apply to shoulder and rub in until dry 1 packet transdermal DAILY 30 days 150 grams 5RF E29.1 - Testicular hypofunction, R79.89 - Other specified abnormal findings of blood chemistry Patient Instructions: Imaging studies, laboratory and physical exam results were discussed and reviewed in detail. No major barriers to patient understanding were identified. An opportunity to ask questions regarding the treatment plan was provided. All questions were answered. The patient expressed understanding and agreement with the above treatment plan. The patient is aware they should contact our office by phone for worsening of their current condition or the appearance of new urologic symptoms. Compliance is encouraged with any medications and followup testing that is ordered. It is a privilege to participate in the urologic care of your patient. If you have any questions or concerns regarding treatment for the above conditions, or other urologic issues, please do not hesitate to contact me. The office telephone contact is [phone]. This note is constructed using voice recognition software. While every effort has been made to ensure accuracy electron beam machine welder setter errors may have been included. Yours sincerely, Dr Thony Walker MD, [facility] - Urology Providers of Expert, Compassionate Care for the Genitourinary System Coding Level of Care Code Est Pt Level 4 (13932) Diagnoses Low testosterone R79.89 Low libido R68.82
== END 2024-01-31 11:10 | disposition home or self-care (01) ==
PROVIDERS: PCP Family Medicine; Visit Provider Urology
DX: R79.89 Other specified abnormal findings of blood chemistry (principal); R68.82 Decreased libido
CPT/HCPCS: 99214

== ENCOUNTER 2024-04-02 14:44 | Outpatient (AMB) | payer MEDICARE, MEDICAID, SELFPAY ==
--- NOTE | 2024-04-02 14:51 | MHC.OFFVIS ---
Vital Signs 04/02/24 14:52 Height 5 ft 9 in Weight 167 lb 8.821 oz BMI 24.7 BP 124/82 Blood Pressure Location Lt brachial Pulse 63 Pulse Source Monitor Intake Visit Reasons: 1 yr f/up km Rehab Technician Required: Yes Rehab Technician Language: Reed Or Wind Instrument Tuner Name: voice kash vera [id number] Allergies vitamin E (d-alpha tocopherol) Allergy (Verified 04/02/24 14:54) Itching Medication List - Last Reconciled 04/02/24 by Spring Arias NP-C ammonium lactate 12% 1 appl topical NEEDED PRN cetirizine 1 tab PO DAILY PRN cholecalciferol (vitamin D3) 25 mcg PO DAILY metoprolol succinate ER 100 mg PO DAILY multivitamin (Daily Multi-Vitamin tablet) 1 tab PO DAILY nifedipine ER 30 mg PO DAILY omeprazole 20 mg PO DAILY spironolactone 25 mg PO DAILY testosterone 1 packet transdermal DAILY 30 days HPI HPI 1 yr f/up km: Details: Vasyl is a 68-year-old male with past medical history of hypertension, bifascicular block on EKG who presents for follow-up. Today he reports that he has been doing well since his last visit 1 year ago. He describes having recent issues with a cough and colored sputum. He has an appointment at urgent care after this visit. Prior to this he was not having any respiratory issues. No PND, orthopnea or edema. No chest discomfort at rest or with activity. No heart palpitations, lightheadedness, presyncope, syncope, falls. Taking all meds as directed. Walks routinely for exercise. [facility] Medical History Bifascicular block Hypertension Lymphoma Surgical History No pertinent past surgical history Family History Mother Recurrent strokes Father Heart disease History of throat cancer Social History Household Members: Spouse Housing: Apartment Do you presently have visiting nurse or other home services: No Alcohol intake: unknown Patient Tobacco Use Status: Never used Tobacco service: No Current occupational status: employed Review of Systems Const All systems reviewed & are unremarkable except as noted in HPI and below ENT Denies dizziness Card Denies chest pain, Denies chest pain at rest, Denies chest pain with activity, Denies rapid heart rate, Denies pedal edema, Denies edema, Denies leg edema, Denies lightheadedness, Denies palpitations, Denies dyspnea, Denies dyspnea on exertion and Denies orthopnea Resp Denies cough, Denies dyspnea and Denies dyspnea on exertion GI Denies hematochezia and Denies change in stool character Musc Denies abnormal gait, Denies limited range of motion, Denies muscle cramps, Denies muscle weakness, Denies numbness, Denies radiating pain into limb, Denies stiffness and Denies tingling Neuro Denies abnormal gait, Denies dizziness, Denies numbness and Denies tingling Endo Denies palpitations Physical Exam Vital Signs: Last Vital Signs Pulse 63 04/02/24 14:52 BP 124/82 04/02/24 14:52 BMI result Body Mass Index 24.7 Const General: cooperative, healthy appearing, comfortable and no acute distress Orientation/consciousness: patient oriented x3 HEENT Head: Yes normal to inspection Resp Effort & Inspection: normal respiratory effort Auscultation: clear to auscultation bilaterally, no crackles, no rales, no rhonchi and no wheezes Cardio Rate: regular rate Rhythm: regular rhythm Heart sounds: S1 normal heart sound present, S2 normal heart sound present, no murmurs and no rubs Neuro General: patient oriented x3 Extrem General: Yes normal to inspection, No no pedal edema and No calf tenderness Psych Appearance: grossly normal Mental Status: mental status grossly normal Speech and movement: Normal speech and movement present Office Procedures EKG Details: Today, read by me, normal sinus rhythm, right bundle branch block, left anterior fascicular block, minimal voltage criteria for LVH, rate 63, QTC 423 milliseconds [id number], Complete Assessment & Plan Assessment & Plan (1) Bifascicular block: Code(s): I45.2 - Bifascicular block Category: Medical Plan: Patient has a history of bifascicular block on EKGs. EKG done today does show sinus rhythm with right bundle branch block, left anterior fascicular block, rate 63, no significant change from prior EKG. He has no cardiac symptoms. He reports good activity tolerance. Plan for follow-up EKG/office visit in 1 year, sooner if needed (2) Hypertension: Code(s): I10 - Essential (primary) hypertension Category: Medical Qualifiers: Hypertension type: primary hypertension Qualified Code(s): I10 - Essential (primary) hypertension Plan: Well controlled at this time. No med changes made. Continue metoprolol, nifedipine, Aldactone. Plan Time spent on chart review, documentation, interview and assessment Coding Level of Care Code Est Pt Level 3 (61258) Complex EM visit Add On G2211 Diagnoses Bifascicular block I45.2 Essential hypertension I10 Hypertension type: primary hypertension CPT Codes EKG - CPT: [id number], Complete ([id number]) Time Spent (min) 24
[2024-04-02 14:52] VITALS: BP 124/82; PULSE 63; BMI 24.7
== END 2024-04-02 15:23 | disposition home or self-care (01) ==
PROVIDERS: PCP Family Medicine; Visit Provider Nurse Practitioner Family
DX: I45.2 Bifascicular block (principal); I10 Essential (primary) hypertension
CPT/HCPCS: 93010; 99213; G2211

== ENCOUNTER → 2024-04-02 14:44 | Outpatient (BNVA) | payer MEDICARE, MEDICAID, SELFPAY | PROVIDERS: PCP Family Medicine; Visit Provider Nurse Practitioner Family | DX: I45.2 Bifascicular block (principal); I10 Essential (primary) hypertension | CPT/HCPCS: 93005; 99212 ==

== ENCOUNTER 2024-04-09 12:51 | Outpatient (REF) | payer MEDICARE, MEDICAID, SELFPAY ==
--- NOTE | ~2024-04-09 | XR_ITS ---
EXAMINATION: XR CHEST CLINICAL INFORMATION: cough x 1 mos COMPARISON: April 29, 2023 TECHNIQUE: 2 views of the chest were obtained. FINDINGS: There is no gross pneumothorax. Heart size is normal. No pleural effusion. No focal consolidation. Minimal degenerative changes in the thoracic spine. XR/XR chest 2V IMPRESSION: No new focal consolidation. This study was presented today to April 10, 2024 for interpretation. Stat results provided at this time as requested by referring provider. Electronically signed by: Cheryl Kidd MD 04/10/2024 08:28 AM DELONTE DAVENPORT
== END 2024-04-09 12:52 | disposition home or self-care (01) ==
LOC: HO.HHCX 12:51
PROVIDERS: Visit Provider Family Medicine
DX: R05.2 Subacute cough (principal)
CPT/HCPCS: 71046

== ENCOUNTER → 2024-04-12 09:41 | Outpatient (BNVA) | payer SELFPAY | PROVIDERS: PCP Family Medicine; Visit Provider Physician Assistant Medical | DX: Z02.79 Encounter for issue of other medical certificate (principal) ==

== ENCOUNTER 2024-04-26 12:24 | Outpatient (REF) | payer MEDICARE, SELFPAY ==
[2024-05-02 20:32] LABS: Testosterone, Free 65.4 pg/mL (35.0-155.0); Testosterone, Total 307 ng/dL (250-1100)
== END 2024-04-26 12:25 | disposition home or self-care (01) ==
LOC: HO.LAB 12:24
PROVIDERS: PCP Family Medicine; Visit Provider Urology
DX: R79.89 Other specified abnormal findings of blood chemistry (principal)
CPT/HCPCS: 36415; 84402; 84403

== ENCOUNTER 2024-05-02 09:44 | Outpatient (AMB) | payer MEDICARE, SELFPAY ==
--- NOTE | 2024-05-02 09:44 | A.OFFVIS_ITS ---
Intake Visit Reasons: 3M Testosterone(pending) Intake Note: Patient is present for 3M TESTOSTERONE Urology Medication:TESTOSTERONE Antibiotic Allergy:NONE Blood Thinner:NONE Trucker Hand Required: No Allergies vitamin E (d-alpha tocopherol) Allergy (Verified 05/02/24 09:45) Itching HPI Comments Details: Vasyl is a pleasant Mauritian-speaking male. He is a patient of Dr. Castañeda. He is seen for the following urologic conditions - nephrolithiasis - low libido Telemedicine Evaluation 15 min Consultation [employer] Kyle Video Mauritian translation provided by qualified medical radiation therapist Six-month follow-up renal ultrasound Has not started testosterone Has other issues currently Male hypogonadism States progressive low libido Lack of morning erections at initial evaluation Declining erectile quality Baseline labs 10/16 T 247 FT 60 FSH 15 LH 7.4, 02/15 T 287 FT 71 Nephrolithiasis Underwent ureteroscopy for proximal left ureteric stone Imaging 07/15 CT scan 6 mm proximal left ureteric stone 10/16 renal ultrasound no evidence of stones Stone composition 07/15 calcium oxalate monohydrate 80% Therapeutic plan - 64 oz fluid intake - lemon water therapy PFSH Medical History Bifascicular block Hypertension Lymphoma Surgical History No pertinent past surgical history Family History Mother Recurrent strokes Father Heart disease History of throat cancer Social History Household Members: Spouse Housing: Apartment Do you presently have visiting nurse or other home services: No Alcohol intake: unknown Patient Tobacco Use Status: Never used Tobacco service: No Current occupational status: employed Review of Systems Const All systems reviewed & are unremarkable except as noted in HPI and below Reports no additional complaints Resp Reports no additional complaints GI Reports no additional complaints Reports as per HPI Musc Reports no additional complaints Physical Exam Telemedicine evaluation Appropriate responses Regular breathing rate and rhythm HEENT Head: Yes normal to inspection Ears: hearing grossly normal bilaterally Eyes General: appearance normal, both eyes and all related structures Neck Neck: Yes normal visual inspection Chest Chest palpation & inspection: normal inspection of the chest Resp Effort & Inspection: normal respiratory effort and able to speak in complete sentences Telehealth Telehealth Telehealth Platform: [employer] Location of provider rendering services: practice address Location of patient: address on file Patient Identification confirmed using: Name, : Yes Telehealth method: video Patient verbally consented to treatment: Yes Patient verbally consented to billing insurance company: Yes Patient informed of any privacy concerns related to visit: Yes Minutes spent on Phone/Video with Pt.: 15 Assessment & Plan Assessment & Plan (1) Nephrolithiasis: Code(s): N20.0 - Calculus of kidney Category: Medical (2) Low libido: Code(s): R68.82 - Decreased libido Category: Medical Plan Six-month follow-up renal imaging Orders: Orders US renal BI 6 Months N20.0 - Calculus of kidney Patient Instructions: Imaging studies, laboratory and physical exam results were discussed and reviewed in detail. No major barriers to patient understanding were identified. An opportunity to ask questions regarding the treatment plan was provided. All questions were answered. The patient expressed understanding and agreement with the above treatment plan. The patient is aware they should contact our office by phone for worsening of their current condition or the appearance of new urologic symptoms. Compliance is encouraged with any medications and followup testing that is ordered. It is a privilege to participate in the urologic care of your patient. If you have any questions or concerns regarding treatment for the above conditions, or other urologic issues, please do not hesitate to contact me. The office telephone contact is [phone]. This note is constructed using voice recognition software. While every effort has been made to ensure accuracy gis specialist errors may have been included. Yours sincerely, Dr Thony Walker MD, [facility] - Urology Providers of Expert, Compassionate Care for the Genitourinary System Coding Level of Care Code Tele Est Pt Level 3 (31052) Diagnoses Nephrolithiasis N20.0 Low libido R68.82
== END 2024-05-02 10:52 | disposition home or self-care (01) ==
LOC: HO.HUSH 09:44
PROVIDERS: PCP Family Medicine; Visit Provider Urology
DX: N20.0 Calculus of kidney (principal); R68.82 Decreased libido
CPT/HCPCS: 99213

== ENCOUNTER 2024-05-04 09:37 | Outpatient (AMB) | payer MEDICARE, SELFPAY ==
[2024-05-04 09:51] VITALS: BP 137/76; PULSE 67; O2SAT 98; BMI 25.0
--- NOTE | 2024-05-04 09:51 | MHC.OFFVIS ---
Vital Signs 05/04/24 09:51 Height 5 ft 9 in Weight 169 lb BMI 25.0 BP 137/76 Blood Pressure Location Lt brachial Position Sitting Pulse 67 Pulse Source Pulse Oximeter Pulse Oximetry (%) 98 Oxygen Delivery Method Room Air Intake Visit Reasons: Chronic bilat low back pain/lft side sciatica Fiscal Officer Required: Yes Fiscal Officer Services: Fiscal Officer Present Fiscal Officer Name: #[id number] via [employer] Information Interpreted: non-clinical & clinical Allergies vitamin E (d-alpha tocopherol) Allergy (Verified 05/04/24 09:52) Itching Medication List - Last Reconciled 05/04/24 by Rossana Cordero, CLIENT SERVICES MANAGER ammonium lactate 12% 1 appl topical NEEDED PRN cetirizine 1 tab PO DAILY PRN cholecalciferol (vitamin D3) 25 mcg PO DAILY metoprolol succinate ER 100 mg PO DAILY multivitamin (Daily Multi-Vitamin tablet) 1 tab PO DAILY nifedipine ER 30 mg PO DAILY omeprazole 20 mg PO DAILY spironolactone 25 mg PO DAILY testosterone 1 packet transdermal DAILY 30 days HPI HPI Chronic bilat low back pain/lft side sciatica: Details: Patient is a 68 years old Samoan speaking male with history of chronic low back pain, CKD stage 2, lumbar disc herniation, HTN, depression, erectile dysfunction, kidney stones, cholelithiasis, eczema, 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 Back pain is axial and also radiates into his left buttock and left hip and posterior thigh and into his left ankle. Pain started last summer after he landed on a hard surface on both feet. Since then, he has been experiencing intermittent shooting pain from his back into left lower extremity with associated numbness, tingling, and weakness. Pain is mostly exacerbated with walking 5-10 minutes, prolonged standing or heavy lifting. He was seen on 10/11/22 at [facility] for back injury due to heavy lifting. Patient also underwent [facility] evaluation on 01/23/24 and was recommended another course of formal PT and prednisone taper. He completed physical therapy 5 sessions and reports good relief. He is interested to repeat PT prior to interventional treatments. 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 He denies any significant pain with sitting or sleeping but reports increased pain from getting up from seated to standing position. Denies previous back injections or surgery. Lumbar spine MRI was completed on 10/26/23. Denies any fever or chills, abdominal or groin pain, foot drop, bladder or bowel dysfunction, or saddle anesthesia. Location: Lower back pain radiates into left leg Duration: Chronic pain since 11/2023 Characteristics of symptom or complaint: Aching, shooting, radiating, stabbing, throbbing, numbness, tingling Aggravating or associated factors: Walking (5-10 min), standing, bending, lifting, twisting, Relieving factors: Rest, activity modification, NSAID, Tylenol, baclofen, tramadol, prednisone Treatment: PT, lumbar spine MRI, Neurosurgery evaluation [facility] Medical History Bifascicular block Hypertension Lymphoma Surgical History No pertinent past surgical history Family History Mother Recurrent strokes Father Heart disease History of throat cancer Social History Household Members: Spouse Housing: Apartment Do you presently have visiting nurse or other home services: No Alcohol intake: unknown Patient Tobacco Use Status: Never used Tobacco service: No Current occupational status: employed Review of Systems Const All systems reviewed & are unremarkable except as noted in HPI and below Physical Exam Vital Signs: Last Vital Signs Pulse 67 05/04/24 09:51 BP 137/76 05/04/24 09:51 Pulse Ox 98 05/04/24 09:51 Oxygen Delivery Method Room Air 05/04/24 09:51 BMI result Body Mass Index 25.0 General: Appears afebrile. No acute distress. Alert and oriented. Mood and affect appropriate. Follows and participates in conversation appropriately. Respiratory effort is unlabored. No cough. Able to transition from sit to stand unassisted. Ambulates with bilaterally normal heel strike and toe off. General: Yes no CVA tenderness Back/Spine/Pelvis Other: Mildly limited lumbar ROM on the left with lateral rotation and twisting. Lumbar flexion reproduces left sided low back pain, extension is intact and does not cause pain or discomfort. Demonstrates 5/5 right and 4/5 left strength of quadriceps bilaterally as well as flexion/dorsiflexion of bilateral feet against resistance. 2+ pedal pulses bilaterally. Straight leg rise with dorsiflexion positive on the left. Diminished patellar and achilles reflexes bilaterally. Facet loading test reproduces mild pain. Cynthia sign, Alfonso?s, Gaenslen, Pelvic compression and Stinchfield tests are positive on the left, equivocal on the right. No groin pain with I/E hip rotations. Valsalva maneuver negative. Back: no CVA tenderness Cervical Spine: cervical ROM normal, No Cervical spine scars present and No Cervical spine tenderness Thoracic/Lumbar Spine: thoracic and lumbar spine normal to inspection, No Thoracic/lumbar spine scar(s), Lasegue's sign positive on the left and diffuse, pain with thoraco-lumbar ROM, paraspinal muscle tenderness on the left in the mid lumbar and in the lower lumbar, No thoracic spinal tenderness and lumbar spinal tenderness (L4-S1) Pelvis: buttock tenderness on the left Sacroiliac joints: on the right nontender and on the left tender to palpation Extrem General: Yes capillary refill normal, Yes no clubbing, cyanosis or edema and Yes no calf tenderness Results Reviewed Results Reviewed: MR LUMBAR SPINE WITHOUT CONTRAST 10/26/23 CLINICAL INFORMATION: Severe low back pain radiating down left leg, positive SLR on left COMPARISON: MRI lumbar spine on 12/01/2017. TECHNIQUE: MRI of the lumbar spine was obtained using routine sequences without contrast. FINDINGS: Normal alignment. No acute bone marrow abnormality. The vertebral body heights are preserved. Multilevel disc desiccation without significant disc height loss. The visualized spinal cord is normal in caliber. No abnormal cord signal. The conus medullaris terminates at L1. T12-L1: No significant spinal canal or neural foraminal narrowing. L1-L2: No significant spinal canal or neural foraminal narrowing. L2-L3: Bilateral facet arthrosis. No significant spinal canal stenosis. Mild right neural foraminal narrowing. L3-L4: Diffuse disc bulge with superimposed right foraminal disc protrusion. Prominent dorsal epidural fat and bilateral facet arthrosis. New mild spinal canal stenosis. Mild to moderate right and mild left neural foraminal narrowing with the disc abutting the right exiting L3 nerve roots. L4-L5: Diffuse disc bulge with superimposed right foraminal annular fissure. Prominent dorsal epidural fat and bilateral facet arthrosis. No significant spinal canal stenosis. Mild to moderate right and mild left neural foraminal narrowing with the disc abutting the right exiting L4 nerve roots. L5-S1: Diffuse disc bulge with superimposed left paracentral disc protrusion which abuts the left transiting S1 nerve roots. No significant spinal canal stenosis. Mild right neural foraminal narrowing. The paravertebral soft tissues are unremarkable. IMPRESSION: -Multilevel lumbar spondylosis as described above. There is a left paracentral disc protrusion at L5-S1 which abuts the left transiting S1 nerve roots. There is also a new mild spinal canal stenosis at L3-L4. Mild to moderate right neural foraminal narrowing at L3-L4 and L4-L5 with disc abutting the right exiting L3 and L4 nerve roots. -Right foraminal annular fissure at L4-L5. Assessment & Plan Assessment & Plan (1) Lumbar radiculopathy: Code(s): M54.16 - Radiculopathy, lumbar region Category: Medical (2) Lumbar disc herniation with radiculopathy: Code(s): M51.16 - Intervertebral disc disorders with radiculopathy, lumbar region Category: Medical (3) Lumbar spondylosis: Code(s): M47.816 - Spondylosis without myelopathy or radiculopathy, lumbar region Category: Medical (4) Sacroiliitis: Code(s): M46.1 - Sacroiliitis, not elsewhere classified Category: Medical Plan Discussed interventional treatments for symptomatic low back pain due to disc hernation at L5-S1 causing left lumbar radiculopathy. We discussed therapeutic POLI, neuromodulation with SCS trial and implant. Patient is hesitant towards injections at this time and would like to repeat PT as this has been very benefical per patient. Script provided for PT at patient's previous location. Patient is aware to call if pain worsens or if she develops any red flag symptoms to seek emergency care. All questions were answered and the patient is in agreement of plan. Follow up after PT and sooner as needed. Orders: Orders PT Evaluation and Treatment Today M47.816 - Spondylosis without myelopathy or radiculopathy, lumbar region, M51.16 - Intervertebral disc disorders with radiculopathy, lumbar region, M54.16 - Radiculopathy, lumbar region Medications: New lidocaine 5% 1 patch topically; 30 ea 0RF pain M47.816 - Spondylosis without myelopathy or radiculopathy, lumbar region, M51.16 - Intervertebral disc disorders with radiculopathy, lumbar region Coding Level of Care Code New Pt Level 4 (48934) Complex EM visit Add On G2211 Diagnoses Lumbar radiculopathy M54.16 Lumbar disc herniation with radiculopathy M51.16 Lumbar spondylosis M47.816 Sacroiliitis M46.1
== END 2024-05-04 10:16 | disposition home or self-care (01) ==
PROVIDERS: PCP Family Medicine; Referring Provider Family Medicine; Visit Provider Nurse Practitioner Family
DX: M51.16 Intervertebral disc disorders with radiculopathy, lumbar region (principal); M47.816 Spondylosis without myelopathy or radiculopathy, lumbar region; M46.1 Sacroiliitis, not elsewhere classified
CPT/HCPCS: 99204; G2211

== ENCOUNTER → 2024-05-04 09:37 | Outpatient (BNVA) | payer MEDICARE, SELFPAY | PROVIDERS: PCP Family Medicine; Referring Provider Family Medicine; Visit Provider Nurse Practitioner Family | DX: M51.16 Intervertebral disc disorders with radiculopathy, lumbar region (principal); M47.816 Spondylosis without myelopathy or radiculopathy, lumbar region; M46.1 Sacroiliitis, not elsewhere classified | CPT/HCPCS: 99202 ==

== ENCOUNTER 2024-09-10 11:01 | Outpatient (REF) | payer MEDICARE, SELFPAY ==
--- NOTE | ~2024-09-10 | XR_ITS ---
EXAMINATION: XR CHEST 2 VIEWS HISTORY: acute cough COMPARISON: Comparison is made with the prior examination dated 04/09/2024. FINDINGS: PA and lateral views of the chest are submitted. The lungs are expanded and clear. There is no pleural effusion, pneumothorax, or pulmonary vascular congestion. The heart is normal in size. The bones are intact. XR/XR chest 2V IMPRESSION: No acute cardiopulmonary abnormality. Electronically signed by: Rancho Hartley MD 09/10/2024 11:23 AM EDT
--- OUTSIDE RECORDS SUMMARY | 2024-09-10 11:48 | XMS_ITS | Clinical Summary ---
Author Organization [facility] Address [address] [address] Phone Care Team Providers Care Digital Media Intern Name Role Phone Unavailable Primary Care Provider Unavailabl e Allergies No known active allergies Medications Diclofenac Sodium 1 % gel APPLY 2 GRAMS BY TOPICAL ROUTE 3 TIMES EVERY DAY TO THE AFFECTED AREA(S) NEEDED FOR PAIN 09/24/19 21 Active Blood Pressure Monitor misc USE TO CHECK BLOOD PRESSURE, SEATED IN CHAIR WITH FEET ON FLOOR 11/13/19 21 Active albuterol HFA (PROVENTIL HFA;VENTOLIN HFA) 108 (90 Base) MCG/ACT inhaler 01/14/20 21 Active desoximetasone (TOPICORT) 0.25 % cream 01/14/20 21 Active baclofen (LIORESAL) 10 MG tablet Take 1 tablet by mouth 1 (one) time each day if needed 01/21/20 21 Active [place]-3 Fatty Acids (FISH OIL OMEGA-3 PO) Take 500 mg by mouth 1 (one) time each day Active Cholecalcifero l (Vitamin D3) 125 MCG (5000 UT) capsule Take 1 capsule by mouth 1 (one) time each day Active losartan (COZAAR) 100 MG tablet TAKE 1 TABLET BY MOUTH 1 TIME EACH DAY. 90 tablet 3 08/31/19 23 Active metoprolol succinate XL (TOPROL-XL) 100 MG 24 hr tablet Take 1 tablet (100 mg total) by mouth 1 (one) time each day Do not crush or chew. 90 tablet 3 08/22/19 24 Active cyanocobalamin (VITAMIN B-12) 100 MCG tablet Take 50 mcg by mouth 1 (one) time each day Active spironolactone (ALDACTONE) 25 MG tablet TAKE 1 TABLET BY MOUTH EVERY DAY 90 tablet 7 04/18/20 24 Active omeprazole (PriLOSEC) 20 MG capsuleIndicat ions:Chronic kidney disease stage 2,Hypertensive renal disease,Pure hypercholester olemia, not otherwise specified,Hypo kalemia,Stage 3a chronic kidney disease (HCC) TAKE 1 CAPSULE (20 MG TOTAL) BY MOUTH DAILY DO NOT CRUSH OR CHEW 90 capsule 7 06/06/19 25 Active NIFEdipine XL (PROCARDIA XL) 60 MG 24 hr tablet Take 1 tablet (60 mg total) by mouth 1 (one) time each day Do not crush, chew, or split. 90 tablet 3 09/04/19 25 026 Active NIFEdipine CC (ADALAT CC) 30 MG 24 hr tablet Take 30 mg by mouth 1 (one) time each day before breakfast Do not crush, chew, or split. 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/01/2012 Nodular lymphoma, unspecifie d site, extranodal and solid organ sites 06/01/2012 Disorder of spleen 04/24/2012 Resolved Problems Problem Noted Date Diagnosed Date Resolved Date Elevated blood pressure read ing without diagnosis of hypertension 09/12/2020 02/11/2021 Encounters Date Type Department Care Team Description 09/03/2024 1:15 PM EDT Office Visit [facility] [address] [address] Arturo Ruiz MD Chronic kidney disease stage 2 (Primary Dx); Hypertensive renal disease; Hypokalemia from Last 3 Months Immunizations Immunization Administration Dates Next Due Influenza Split High Dose Preservative Free IM 0 12/25/2019 Pneumococcal Polysaccharide 06/18/2013 Family History Medical History Relation Comments Cancer Father Heart disease Father Hypertension Father Relation Status Comments Father Mother Social History Tobacco Use Types Packs/Day Years Used Date Smoking Tobacco: Former Smokeless Tobacco: Never Tobacco Cessation:Counseling Given: No Alcohol Use Standard Drinks/Week Comments No 0 (1 standard drink = 0.6 oz pur e alcohol) Sex and Gender Information Value Date Recorded Sex Assigned at Not on file Legal Sex Male 5:13 PM EST Gender Identity Not on file Sexual Orientation Not on file Last Filed Vital Signs Vital Sign Reading Time Taken Comments Blood Pressure 150/84 09/03/2024 1:18 PM EDT Pulse 62 09/03/2024 1:18 PM EDT Temperature - - Respiratory Rate - - Oxygen Saturation 98% 02/11/2021 3:13 PM EDT Inhaled Oxygen Concentration - - Weight 77.5 kg (170 lb 12.8 oz) 09/03/2024 1:18 PM EDT Height 177.8 cm (5' 10 ) 02/11/2021 3:13 PM EDT Body Mass Index 24.51 02/11/2021 3:13 PM EDT Plan of Treatment Upcoming Encounters Date Type Department Care Team (Late st Contact Info) Description 09/02/2025 1:30 PM EDT Office Visit [facility] [address] [address] Arturo Ruiz MD [address] [phone] Health Maintenance Due Date Last Done Comments Colorectal Cancer Screening: Annual FOBT 2006 Colorectal Cancer Screening: Colonoscopy 2006 Colorectal Cancer Screening: Sigmoidoscopy 2006 Hepatitis B Vaccine Aged Out 01/23/2015, 11/14/2014, 10/21/2009, Additional history exists No longer eligible based on patient's age to complete this topic Pneumococcal Vaccine: 50+ Years Completed 06/10/2023, 11/14/2014, 06/18/2013, Additional history exists Pneumococcal Vaccine: Peds (0 to 5 Years) and At-Risk Patients (6 to 49 Years) Discontinued 06/10/2023, 11/14/2014, 06/18/2013, Additional history exists Influenza Vaccine Completed 02/10/2024, , 01/30/2021, Additional history exists Procedures Procedure Name Priority Date/Time Associated Diagnosis Comments MAGNESIUM Routine 09/04/2024 12:22 PM EDT RENAL FUNCTION PANEL Routine 09/04/2024 12:22 PM EDT Chronic kidney disease stage 2 from Last 3 Months Results * Magnesium (09/04/2024 12:22 PM EDT) Magnesium 1.9 1.6 - 2.3 mg/dL [facility] 09/04/2024 12:2 2 PM EDT 09/04/2024 us Arturo Riuz MD LAB BLOOD ORDERABLES [facility] [address] [place] [address] * (ABNORMAL) Renal function panel (09/04/2024 12:22 PM EDT) Glucose 119(H) 70 - 99 mg/dL [facility] BUN 18 8 - 27 mg/dL [facility] Creatinine 1.42(H) 0.76 - 1.27 mg/dL [facility] eGFR CKD-EPI CR 2020 54(L) >59 mL/min/1.7 3 [facility] BUN/Creatinine Ratio 13 10 - 24 [facility] Sodium 143 134 - 144 mmol/L [facility] Potassium 4.9 3.5 - 5.2 mmol/L [facility] Chloride 104 96 - 106 mmol/L [facility] Bicarbonate (CO2) 25 20 - 29 mmol/L [facility] Calcium 9.2 8.6 - 10.2 mg/dL [facility] Albumin 4.1 3.9 - 4.9 g/dL [facility] Phosphorus 2.6(L) 2.8 - 4.1 mg/dL [facility] Blood (Blood, Venous) 09/04/2024 12:22 PM EDT 09/04/2024 us Arturo Ruiz MD LAB BLOOD ORDERABLES Final Resu lt [facility] [address] [place] [phone] from Last 3 Months Insurance Medicaid [place] [employer] MCR Adv PPO ([id number])
--- OUTSIDE RECORDS SUMMARY | 2024-09-10 11:48 | XMS_ITS | Clinical Summary ---
Author Organization [employer] Address [address] [place] [address] [address] [place] [address] Care Team Providers Care Windrower Operator Name Role Phone Fish Brown PharmD Unavailable [phone] Jaylin Santiago DO Primary Care Provider [phone] Allergies Active Allergy Reactions Criticality Noted Date Comments Amoxicillin-Pot Clavulanate 03/06/2024 Attends Briefs Small Itching,Rash Low 04/15/2022 Cod Liver Oil Itching,Rash Low 04/15/2022 Neomycin 08/04/2021 Plastibase Rash Low 04/15/2022 Vitamin E 01/03/2019 Other reaction(s): Itching, Rash, Rash Medications metoprolol succinate XL (Toprol-XL) 100 MG 24 hr tablet Take 1 tablet by mouth at bed time. 022 Active omeprazole (PriLOSEC) [address] capsule Take 1 capsule by mouth at bed time. 022 Active melatonin 3 MG tablet Take 6 mg by mouth. Active ascorbic acid (Vitamin C) 500 MG tablet Take 500 mg by mouth in the morning. Active Magnesium-Potas sium 60-60 MG capsule Take 1 tablet by mouth in the morning. Active Multiple Vitamin (ONE-A-DAY MENS PO) Take 1 tablet by mouth in the morning. Active Cyanocobalamin (Vitamin B-12 ER) 1000 MCG tablet controlled-rele ase Take 1 tablet by mouth in the morning. Active cholecalciferol 50 MCG (2000 UT) tablet Take 1 tablet by mouth in the morning. Active NIFEdipine CC (Adalat CC) 30 MG 24 hr tabletIndicatio ns:Primary hypertension TAKE 1 TABLET BY MOUTH EVERY DAY 90 tablet 3 Active spironolactone (Aldactone) 25 MG tablet Take 25 mg by mouth Once per day. 023 Active betamethasone valerate (Valisone) 0.1 % cream Apply topically if needed in the morning and at bedtime (dryness). 45 g 2 Active naproxen (Naprosyn) 500 MG tablet Take 1 tablet (500 mg) by mouth if needed in the morning and at bedtime for mild pain. 10 tablet 024 2024 Active testosterone (Androgel) 50 MG/5GM (1%) gel APPLY 1 PACKET TRANSDERMALLY DAILY FOR 30 DAYS. APPLY TO SHOULDER AND RUB IN UNTIL DRY Active diphenhydrAMINE (BENADryl) 50 MG tablet Take 1 tablet (50 mg) by mouth every 8 (eight) hours if needed for itching or allergies for up to 7 days. 21 tablet 024 Active Dextromethorpha n-guaiFENesin (Mucinex DM) 30-600 MG tablet sustained-relea se 12 hour Use 1 tab TID 28 tablet 024 Active amitriptyline (Elavil) 10 MG tablet Take 1 tablet (10 mg) by mouth at bedtime. 30 tablet 5 024 2024 Active Diclofenac Sodium 1 % gel Apply 2 g topically if needed in the morning, at noon, in the evening, and at bedtime (pain). 150 g 3 Active fluticasone (Flonase) 50 MCG/ACT nasal sprayIndication s:Viral upper respiratory tract infection Administer 2 sprays into each nostril Once per day. Shake gently. Before first use, prime pump. After use, clean tip and replace cap. 48 mL 3 Active baclofen (Lioresal) 10 MG tablet TAKE 1 TABLET BY MOUTH IN THE MORNING, AT NOON AND AT BEDTIME NEEDED FOR MUSCLE SPASMS 60 tablet 3 Active hydrocortisone 0.5 % creamIndication s:Itching of ear Apply topically 2 times daily. Use for up to 1 week. 15 g 1 025 Active cetirizine (ZyrTEC) 5 MG tabletIndicatio ns:Itching of ear Take 1 tablet (5 mg) by mouth Once per day. 90 tablet 1 025 2025 Active azithromycin (Zithromax) 250 MG tabletIndicatio ns:Acute cough 500 mg on day 1, 250 mg day 2 through 5 6 tablet 025 Active albuterol (Ventolin HFA) 108 (90 Base) MCG/ACT inhalerIndicati ons:Wheezing INHALE 2 PUFFS EVERY 4 HOURS IF NEEDED FOR WHEEZING 18 g 1 025 Active albuterol (Ventolin HFA) 108 (90 Base) MCG/ACT inhaler INHALE 2 PUFFS EVERY 4 HOURS IF NEEDED FOR WHEEZING 18 g 1 024 2024 Discontinued(R eorder (will not trigger notification to Pharmacy)) Active Problems Problem Noted Date Diagnosed Date Eczema of external ear, bilateral 02/14/2023 Assessment & Plan (09/20/2023 5:18 PM EDT): Minimal at this time Rx betamethasone cream to use prn if OTC hydrocortisone fails. Patient is aware of ear perforation, fu with PCP prn only. Assessment & Plan (02/14/2023 12:18 PM EDT): Hydrocortisone cream on ext ear canal prn pruritus. Bifascicular bundle branch block 04/15/2022 Assessment & Plan (04/15/2022 1:58 PM EST): Pt evaluated bycardiology for eval and stress testing seen at [facility] 05/25/2018 they recommended ECHO only and NO stress test pt will continue to follow with them. seen recently 03/31/2022 Chronic low back pain 12/03/2017 Assessment & Plan (01/27/2023 10:24 AM EDT): Pt is here for a follow up Low back pain stable, Previous work up included MRI of his LS spine on 06/19/2014 showed: A left lat disc protrusion at L4-L5 resulting in mass effect upon the left L4 nerve root in the neural foramen. Evaluated at [facility] on 06/26/2014 started on Gabapentin and was ask to consider the use of steroid injections. On 11/04/2014 he was seen by Dr. Duran Neurosurgeon who thought this was a classic L4 radiculopathy. He recommended to continue conservative therapy in the hopes to avoid a surgical intervention. Pt received a steroid injection with good results. Repeat MRI 11/2017 showed: Broad-based right foraminal disc protrusion at L2-L3, mildly increased in size compared to previous imaging. Broad-based right foraminal/extraforaminal disc protrusion at L3-L4 has increased in size with mild mass effect upon the right L3 nerve root. Additional marrow edema in the right articular processes and adjacent soft tissues posteriorly, presumably reactive. Moderate facet degeneration, worse on the left side at L4-L5 with resorption of a previous left foraminal disc extrusion. Pt was seen by Neurosurgeon Dr. Duran and referred him to Pt . Currently doing well. Assessment & Plan (04/15/2022 1:58 PM EST): Pt is here with acute on chronic low back pain . Previous work up included MRI of his LS spine on 06/19/2014 showed: A left lat disc protrusion at L4-L5 resulting in mass effect upon the left L4 nerve root in the neural foramen. Evaluated at [facility] on 06/26/2014 started on Gabapentin and was ask to consider the use of steroid injections. On 11/04/2014 he was seen by Dr. Duran Neurosurgeon who thought this was a classic L4 radiculopathy. He recommended to continue conservative therapy in the hopes to avoid a surgical intervention. Pt received a steroid injection with good results. Repeat MRI 11/2017 showed: Broad-based right foraminal disc protrusion at L2-L3, mildly increased in size compared to previous imaging. Broad-based right foraminal/extraforaminal disc protrusion at L3-L4 has increased in size with mild mass effect upon the right L3 nerve root. Additional marrow edema in the right articular processes and adjacent soft tissues posteriorly, presumably reactive. Moderate facet degeneration, worse on the left side at L4-L5 with resorption of a previous left foraminal disc extrusion. Pt was seen by Neurosurgeon Dr. Duran and referred him to Pt . 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 He was last seen at [facility] 03/30/2016. pt found to be well engrafted, CAT scan showed full remission. They recommended follow up with us q 6 months with CBC, CMP and LDH and PRN with them if recurrent symptoms. 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 He was last seen at [facility] 03/30/2016. pt found to be well engrafted, CAT scan showed full remission. They recommended follow up with us q 6 months with CBC, CMP and LDH and PRN with them if recurrent symptoms. He also remains under the care at [facility]. According to oncologist last note from 03/17/2022 pt had a mild anemia and transaminitits Repeat CT of chest abdomen and pelvis were free of disease. and he recommended 1 year f/u or sooner if any presence of B symptoms Splenic lesion 04/24/2012 Erectile dysfunction 01/14/2012 Assessment & Plan (04/15/2022 2:00 PM EST): In the past he has done well with Viagra, Testosterone Free and total checked in 2005 were wnl. Kidney stone 01/14/2012 Overview (07/21/2022): Sp Left sided Stent placed 06/2022 Assessment & Plan (07/21/2022 10:34 AM EDT): s/p stent withdrawal. Doing well. FU with PRN. Recheck GFR encouraged increased water consumption, avoid sodas and caffeine reconsult PRN History of latent tuberculosis 10/25/2011 Assessment & Plan (04/15/2022 2:00 PM EST): Pt completed the recommended TB treatment with INH 300 and B6 50 mg from 12/21/13 until 01/12/2015 and completed 9 months of therapy. Essential hypertension 10/07/2011 Overview (12/05/2023): Pharmacotherapy: Updated 11/28/23 - Metoprolol XL 100mg daily - Spirololactone 25mg daily - Nifedipine ER 30mg daily History: Updated 11/28/23 CDTM program since 07/03/2019. Intolerant to clonidine patches and hydralazine. Taken off amlodipine due to lower extremity edema; switched from lisinopril to losartan 75mg daily. Taken off chlorthalidone and started on spironolactone/HCTZ. Thiazide stopped due to hypokalemia. Added Spironolactone on 10/2021. Referred and started to see Dr. Ruiz (nephrology). Added nifedipine on 12/21/2021. Self stopped losartan because thought it was a vitamin but at home BP reading has been normal. Today 11/27 his home BP readings are less than 140/90 but BP in clinic is elevated. Has no consulted with renal about stopping losartan. Should be on MONAE considering CKD and hx of proteinuria. Assessment & Plan (12/05/2023 1:59 PM EDT): Assessment: - BP is at goal of less than 140/90 per JNC8 guidelines Plan/ Recommendations: - Continue with current therapy; - No further follow-up/ PCP changed to Dr. Santiago, please re-refer to CDTM if additional disease management is needed. - Patient needs to consult with renal about self-d/cing ACEi. Monitoring: Potassium (mmol/L) Date Value 11/29/2023 4.0 01/25/2023 3.7 BP Readings from Last 2 Encounters: 11/28/23 (!) 151/97 10/10/23 (!) 160/98 Assessment & Plan (06/27/2023 10:57 AM EST): Assessment: BP is at goal of less than 140/90 per JNC8 guidelines Plan: Continue with current therapy f/u in 5 months. Repeat labs. Pt would like to stay off losartan. F/u with nephrology Dr. Ruiz. Assessment & Plan (06/14/2023 10:53 AM EST): Pt is here for a f/u BP controlled He is on a regimen of Spironolactone 25 mg 1 tab daily. (Prescribed by his Stock Associate)), Metoprolol XL 100 mg po daily ( Prescribed by [employer] ) and Nifedipine 30 mg po daily , he is off Amlodipine due to leg edema. Most recent Lytes, Bun and Cr. done on were wnl. Pt stopped Losartan because he thought it was a Vitamin Plan: continue regimen as per Stock Associate Assessment & Plan (05/16/2023 3:35 PM EST): Assessment: BP at goal of less than 140/90 per JNC8 guidelines Plan: - Should restart losartan due to CKD stage II; f/u with nephrology - Follow-up CDTM in 1 month Assessment & Plan (01/25/2023 10:36 AM EDT): Pt is here for a f/u BP controlled He is on a regimen of Losartan 100 in AM, Spironolactone 25 mg 1 tab daily. (Prescribed by his Stock Associate)), Metoprolol XL 100 mg po daily ( Prescribed by [employer] ) and Mlodipine 30 mg po daily , he is off Amlodipine due to leg edema. Most recent Lytes, Bun and Cr. done on 07/21/2022 were wnl. Plan: continue regimen as per Stock Associate Assessment & Plan (09/27/2022 11:15 AM EDT): BP is at goal of less than 140/90 per JNC8 guidelines. Reported some 4-5 readings of >140 SPB over the month. Maintain healthy diet and try physical activity. Most recent labs WNL. Nephrolithiasis resolved but still has some back pain. Next nephrology appt is may 2023. F/u with us in 6 months. Assessment & Plan (09/16/2022 9:24 AM EDT): Pt is here for a f/u BP controlled He is on a regimen of Losartan 100 in AM and Spironolactone 25 mg 1 tab daily. (Prescribed by his Stock Associate)), Metoprolol XL 100 mg po daily ( Prescribed by [employer] ) he is off Amlodipine due to leg edema. Most recent Lytes, Bun and Cr. done on 07/21/2022 were wnl. Plan: continue regimen as per Stock Associate Assessment & Plan (07/21/2022 10:33 AM EDT): Fairly well controlled. Continue multiple medications and FU with PCP in 3 months FU with machine preservative filler once per year Assessment & Plan (04/15/2022 1:11 PM EST): Pt is here for a f/u BP stable He is on Losartan 100 in AM and Spironolactone 25 mg 1 tab daily. (Prescribed by his Stock Associate)), Metoprolol XL 100 mg po daily ( Prescribed by [employer] ) he is off Amlodipine due to leg edema. Most recent Lytes, Bun and Cr. done on 07/22/2021 were wnl. Will repeat Plan: continue regimen as per Stock Associate Benign prostatic hyperplasia 04/25/1959 Depressive disorder 04/25/1957 Resolved Problems Problem Noted Date Diagnosed Date Resolved Date Diarrhea 08/24/2023 11/28/2023 Overview (08/24/2023): -likely food poisoning from chicken based soup vs viral gastroenteritis -no evidence of dehydration on exam -no evidence of acute abdomen -supportive care with fluids -check stool culture -ER precautions discussed -he agrees with the plan Assessment & Plan (08/24/2023 10:03 AM EDT): -likely food poisoning from chicken based soup vs viral gastroenteritis -no evidence of dehydration on exam -no evidence of acute abdomen -supportive care with fluids -check stool culture -ER precautions discussed -he agrees with the plan Lymphadenopathy 07/14/2023 11/28/2023 Assessment & Plan (07/14/2023 11:01 AM EDT): Will call [facility] to expedite his visit as he is currently schedued in September. Pain in both testicles 06/14/202304/09 Assessment & Plan (06/14/2023 11:06 AM EST): Recurrent, seen in the past by Urology, on exam no palpable masses Plan: Testicular US Acute cough 02/14/2023 03/12/2023 Assessment & Plan (02/14/2023 12:17 PM EDT): Likely residual for recent URI Use Flonase daily x 1-2w Increase water intake Acute headache 01/25/2023 03/12/2023 Assessment & Plan (01/25/2023 10:43 AM EDT): Pt with c/o new onset of moderate to severe headaches that last one to two days at A time , described as bitemporal intensity 01/02 denies any nausea , no vomiting , no fever Etiology ? Migraines ? Plan: CT of brain given his Hx of lymphoma Will use Acetaminophen prn in the meantime Forgetfulness 01/25/2023 04/09/2024 Assessment & Plan (06/14/2023 10:57 AM EST): Pt with previous c/o forgetting things such as leaving his car on, throwing med bottles that he was not supposed to. Has a family Hx of alzheimer's disease RPR negative CT of brain Seen by Neurology Dr Villareal 03/22/2023 He did not think pt had anything significant neurologically Head CT 01/2023 negative Assessment & Plan (01/25/2023 10:55 AM EDT): Pt c/o forgetting things such as leaving his car on, throwing med bottles that he was not supposed to. Has a family Hx of alzheimer's disease Plan: , RPR, Neurologic evaluation, CT of brain Follow up in 4 months Folliculitis 01/25/2023 03/12/2023 Assessment & Plan (02/14/2023 12:18 PM EDT): Recurrent, must have staph colonization? I explained to patient about keeping area clean and dry, continue to use bacitracin prn Use Duricef x 1w FU with PCP Patient requested Referral to dermatology, will do. Assessment & Plan (01/25/2023 10:45 AM EDT): Pt with new onset of folliculitis, on his abdomen Plan: Bacitracin Tinea cruris 01/25/2023 11/28/2023 Assessment & Plan (01/25/2023 10:45 AM EDT): Lotrimin prn Viral upper respiratory tract infection 07/21/2022 03/12/2023 Assessment & Plan (07/21/2022 10:33 AM EDT): Residual cough. Use Flonase PRN, humdifiyer at night and increase water consumption. Recommended gargles with tracey lemon tea and honey reconsult PRN Tympanic membrane perforation, left 04/15/2022 04/09/2024 Assessment & Plan (06/14/2023 10:55 AM EST): Pt here for a f/u. Previously pt had been c/o ever present itching on both ear canals , pt has had an extensive evaluation by ENT by local ENT specialist Dr. Chacon ENT specialist 01/15/2014 He recommended a surgical intervention but pt is not convinced he would like to go ahead with that. On his last visit he treated him for a fungal infection. Pt not satisfied wanted a second opinion. On 11/17/2016 he was seen by ENT at [facility] who did not find any abnormality aside from previously described findings by other ENT. He recommended Cortisone ear drops and PRN f/u if he ever decided to proceed with repair of the perforated TM. He was seen again 03/23/2023 by ENT and recommendations remained unchanged. Pt does not want to pursue surgical intervention. Assessment & Plan (04/15/2022 1:59 PM EST): Pt here for a f/u. Previous visit pt had been c/o ever present itching on both ear canals , pt has had an extensive evaluation by ENT by local ENT specialist Dr. Chacon ENT specialist 01/15/2014 He recommended a surgical intervention but pt is not convinced he would like to go ahead with that. On his last visit he treated him for a fungal infection. Pt not satisfied wanted a second opinion. On 11/17/2016 he was seen by ENT at [facility] who did not find any abnormality aside from previously described findings by other ENT. He recommended Cortisone ear drops and PRN f/u if he ever decided to proceed with repair of the perforated TM Preventative health care 04/15/202208/2023 Overview (05/16/2023): Due for RSV and PCV20 vaccine as of 05/16/23 Assessment & Plan (06/14/2023 11:14 AM EST): PSA 02/13/2020 Normal Colonoscopy: Normal : 01/03/2009, repeat 07/13/2019 Normal Assessment & Plan (05/16/2023 3:36 PM EST): - Vaccines scheduled but deferred to May, appt created for pharmacy vaccine. Assessment & Plan (04/15/2022 2:01 PM EST): VINAY: 05/17/2017 WNL, PSA 02/13/2020 Normal Colonoscopy: Normal : 01/03/2009, repeat 07/13/2019 Normal Follicular non-Hodgkin's lymphoma 07/22/2015 04/15/2022 Acute cholecystitis 10/19/2012 12/09/19 24 Nodular lymphoma, unspecifie d site, extranodal and solid organ sites 06/01/2012 024 Overview (01/23/2023): Replace inactive dx Encounters Date Type Department Care Team Description 09/10/2024 10:20 AM EDT Office Visit [facility] [address] [place] [phone] Sadie Thapa MD Acute cough (Primary Dx); Wheezing 09/09/2024 Refill [facility] [address] [place] [id number] Julio Crockett MD 09/09/[address] [phone] Jaylin Santiago DO Viral upper respiratory tract infection 08/29/[address] [address] Jaylin Santiago DO telephone call 08/29/2024 Travel 08/27/[address] [address] Jaylin Santiago DO Chart Prep 08/23/[address] [phone] Jaylin Santiago DO Telephone Call Transfer Request 08/20/[address] [phone] Jaylin Santiago DO Appointment Request 07/18/2024 11:00 AM EDT Office Visit [facility] [address] [phone] Nichole Nieves FNP Hoarseness of voice (Primary Dx); Skin lesion; Itching of ear 07/16/2024 Telephone [facility] [address] [place] [phone] Jaylin Santiago DO Nurse Triage 07/05/2024 Refill [facility] [address] [place] [address] Jaylin Santiago DO 07/04/2024 Telephone [facility] [address] [place] [address] Melissa Mcdonald RN Forms/questionnaires from Last 3 Months Immunizations Immunization Administration Dates Next Due Hep A, Adult 10/21/2009,04/17/2009 Hep B, adult 10/21/2009,05/20/2009,04/17/2009 Influenza High-dose Quadriva lent Preservative Free 01/25/2023 Influenza Injectable Quadriv alant Preservative Free IIV4 MDCK 02/15/2022 Influenza injectable quadriv alent IIV4 with preservative 01/03/2019,02/21/2018,01/14/2017,02/02 Influenza injectable quadriv alent preservative free 01/30/2021,01/22/2020,01/23/2015 Influenza, High Dose Seasona l, Preservative Free 02/10/2024,12/25/2019 Influenza, IIV3, injectable 01/03/2014, 2 Influenza, Split (incl. daniel fied surface antigen) 01/10/2013 MMR 09/02/2014 Pfizer Covid-19 Vaccine 12+ 12/18/2020, 1 Pneumococcal Conjugate PCV 13 04/21/2012 Pneumococcal Conjugate PCV 20 06/10/2023 Pneumococcal Polysaccharide PPSV23 06/18/2013 RSV Bivalent 06/10/2023 TD (adult), 2 Lf tetanus tox oid, preservative free, adsorbed 11/26/2018,12/14/2005 Td (adult), 5 Lf tetanus tox oid, preservative free, adsorbed 02/03/2016 Zoster, Recombinant 09/18/2021,06/26/2021 Family History Medical History Relation Name Comments Heart disease Father Throat cancer Father at 69 Hypertension Mother Seizures Mother at 49 Relation Name Status Comments Father Mother Social History Tobacco Use Types Packs/Day Years Used Date Smoking Tobacco: Former Cigarettes Passive Smoke Exposure: Past Smokeless Tobacco: Never Tobacco Cessation:Counseling Given: Not Answered Alcohol Use Standard Drinks/Week Comments Never 0 (1 standard drink = 0.6 oz pur e alcohol) Depression Answer Date Recorded Patient Health Questionnaire-9 Score 0 04/09/2024 Patient Health Questionnaire-9 Score 0 04/09/2024 Last PHQ-9: Questionnaire Data Not on file 1 06/10/2023 Housing Stability Answer Date Recorded What is your housing situation today? I have rashaun baer 10/28/[address] you li ve. Do you have problems with any of the following? None of the above 10/28/2023 Food Insecurity Answer Date Recorded Within the past 12 months, y ou worried that your food would run out before you got money to buy more: Never True 10/28/2023 Within the past 12 months,th e food you bought just didn't last and you didn't have enough money to get more: Never True 08/2023 Transportation Answer Date Recorded In the past 12 months, has l ack of transportation kept you from medical appts, meetings, work or from getting things needed for daily living? No 10/28/2023 Utilities Answer Date Recorded In the past 12 months, has t he electric, gas, oil or water company threatened to shut off services in your home? No 10/28/2023 Depression Answer Date Recorded Patient Health Questionnaire-2 Score 0 04/09/2024 Internet Access Answer Date Recorded Internet Access Q1 Yes 12/26/2023 Internet Access Q2 Not on file 12/26/2023 Sex and Gender Information Value Date Recorded Sex Assigned at Male 02/22/2022 10:14 AM EDT Legal Sex Male 10:14 AM EDT Gender Identity Male 02/22/2022 10:14 AM EDT Sexual Orientation Straight 02/22/2022 10 :14 AM EDT Last Filed Vital Signs Vital Sign Reading Time Taken Comments Blood Pressure 148/90 09/10/2024 10:05 AM EDT Manual BP Pulse 61 09/10/2024 10:05 AM EDT Temperature 36.6 ??C (97.8 ??F) 09/10/2024 1 0:05 AM EDT Respiratory Rate 20 09/10/2024 10:0 5 AM EDT Oxygen Saturation 98% 09/10/2024 10: 05 AM EDT Inhaled Oxygen Concentration - - Weight 76.4 kg (168 lb 6.4 oz) 09/11/19 25 10:05 AM EDT Height 175.3 cm (5' 9 ) 09/10/2024 10:0 5 AM EDT Body Mass Index 24.87 09/10/2024 10:05 AM EDT Plan of Treatment Health Maintenance Due Date Last Done Comments CT Colonography 1957 FIT DNA/Cologuard 1957 FIT 1957 FOBT 1957 Sigmoidoscopy 1957 Alcohol/Substance Use Screening 1969 DTaP/Tdap/Td Vaccines (1 - Tdap) 11/27/2018 11/26/2018, 02/03/2016, 12/14/2005 COVID-19 Vaccine ( season) 2023 12/18/2020, 11/27/2020 SDOH Screening 10/27/2024 10/28/2023 Diabetes: Hemoglobin A1C 11/28/2024 024, 08/12/2021, 02/13/2020 Depression Screening 04/09/2025 04/09/2024, 04/09/20 24 Tobacco Screening 09/10/2025 09/10/2024 Lipid Panel 11/28/2028 11/29/2023, 03/26, 07/22/2021, Additional history exists Colonoscopy 10/04/2029 10/05/2019 Colorectal Cancer Screening 10/04/2029 Hepatitis A Vaccines Aged Out 10/21/2009, 04/17/20 09 No longer eligible based on patient's age to complete this topic Hepatitis B Vaccines Completed 10/21/2009, 05/20/2009, 04/17/2009 Zoster Vaccines Completed 09/18/2021, 06/26/2021 Pneumococcal Vaccine: 50+ Years Completed 06/10/2023, 06/18/2013, 04/21/2012 RSV Patients and Patients Aged 60 years or older Completed 06/10/2023 Hepatitis C Screening Completed 11/29/2023 Influenza Vaccine Completed 02/10/2024, , 02/15/2022, Additional history exists HIB Vaccines Aged Out No longer eligi ble based on patient's age to complete this topic HPV Vaccines Aged Out No longer eligi ble based on patient's age to complete this topic IPV Vaccines Aged Out No longer eligi ble based on patient's age to complete this topic Meningococcal B Vaccine Aged Out No l onger eligible based on patient's age to complete this topic Meningococcal Vaccine Aged Out No britton huber eligible based on patient's age to complete this topic RSV under 20 months Aged Out No longe r eligible based on patient's age to complete this topic Rotavirus Vaccines Aged Out No longer eligible based on patient's age to complete this topic Goals Goal Patient Goal Type Associated Problems Recent Progress Patient-Stated? Author Blood Pressure < 140/90 Blood Pressure 148/90(2024 10:05 AM EDT) No Fish Brown PharmD HDL > 40 Result Component No Fish Brown PharmD Note: Eat foods that help with (HDL) good cholesterol. Beans, avocado, olive oil, & whole grains Procedures Procedure Name Priority Date/Time Associated Diagnosis Comments XR CHEST 2 VIEWS Routine 09/10/2024 11:0 2 AM EDT Acute cough POCT COVID-19 AG GUILLAUME ID NOW Routine 09/10/2024 10:32 AM EDT Acute cough POCT INFLUENZA A (ID NOW RAPID MOLECULAR) Routine 09/10/2024 10:32 AM EDT Acute cough POCT INFLUENZA B (ID NOW RAPID MOLECULAR) Routine 09/10/2024 10:32 AM EDT Acute cough HEPATITIS C AB W/REFL TO HCV RNA, QN, PCR Routine 11/29/2023 9:30 AM EDT Essential hypertension Stage 2 chronic kidney disease Chronic bilateral low back pain with left-sided sciatica Scrotal pain Ear itching History of B-cell lymphoma BMI 24.0-24.9, adult HEMOGLOBIN A1C Routine 11/29/2023 9:30 AM EDT Essential hypertension Stage 2 chronic kidney disease Chronic bilateral low back pain with left-sided sciatica Scrotal pain Ear itching History of B-cell lymphoma BMI 24.0-24.9, adult Abnormal finding of blood chemistry, unspecified LIPID PANEL, STANDARD Routine 11/29/2023 9:30 AM EDT Essential hypertension Stage 2 chronic kidney disease Chronic bilateral low back pain with left-sided sciatica Scrotal pain Ear itching History of B-cell lymphoma BMI 24.0-24.9, adult HM COLONOSCOPY Routine 10/05/2019 from Last 3 Months or Most Recently Relevant to Health Maintenance Results * XR Chest 2 Views (09/10/2024 11:02 AM EDT) Anatomical Region Laterality Modality Chest Radiographic Alondra ging 09/10/2024 11:0 2 AM EDT Narrative 09/10/2024 11:26 AM EDT ?[facility] ?[address] ?[place] [address] ?XRay Report ? Signed ? Patient: Vasyl Bahena ?MR#: ?? [id number] ? : 1955 ?Acct:[id number] ? Age/Sex: 69 / M ?ADM Date: 09/10/24 ? Loc: HO.HHCX ? Attending Dr: Sadie Thapa MD ? Ordering Physician: Sadie Thapa MD ?? Date of Service: 09/10/24 ?? Procedure(s): XR chest 2V ?? Accession Number(s): [id number] ? cc: Sadie Thapa MD ? EXAMINATION: ??XR CHEST 2 VIEWS ? HISTORY: acute cough ? COMPARISON: Comparison is made with the prior examination dated ?? 04/09/2024. ? FINDINGS: ??PA and lateral views of the chest are submitted. The lungs ?? are expanded and clear. ??There is no pleural effusion, pneumothorax, or ?? pulmonary vascular congestion. ??The heart is normal in size. ??The bones ?? are intact. ? XR/XR chest 2V ?? IMPRESSION: ?? No acute cardiopulmonary abnormality. ? Electronically signed by: ??Rancho Hartley MD ??09/10/2024 11:23 AM EDT ?? RP ? Dictated By: ?Rancho Hartley MD ? Signed By: ?<Electronically signed by Rancho Hartley MD in OV> ?09/10/24 1123 ? DD/ 1102 ? TD/TT: 09/10/24 1117 ? Lumber Grader: ? Procedure Note Donotuseinterpreter, Image - 09/10/2024 [facility] [address] [place] [address] XRay Report Signed Patient: Vasyl BahenaMR#: [id number] : 8Acct:[id number] Age/Sex: 69 / MADM Date: 09/10/24 Loc: HO.HHCX Attending Dr: Sadie Thapa MD Ordering Physician: Sadie Thapa MD Date of Service: 09/10/24 Procedure(s): XR chest 2V Accession Number(s): [id number] cc: Sadie Thapa MD EXAMINATION: XR CHEST 2 VIEWS HISTORY: acute cough COMPARISON: Comparison is made with the prior examination dated 04/09/2024. FINDINGS: PA and lateral views of the chest are submitted. The lungs are expanded and clear. There is no pleural effusion, pneumothorax, or pulmonary vascular congestion. The heart is normal in size. The bones are intact. XR/XR chest 2V IMPRESSION: No acute cardiopulmonary abnormality. Electronically signed by: Rancho Hartley MD 09/10/2024 11:23 AM EDT RP Dictated By: Rancho Hartley MD Signed By: <Electronically signed by Rancho Hartley MD in OV> 09/10/24 1123 DD/ 1102 TD/TT: 09/10/24 1117 Lumber Grader: us Sadie Thapa MD IMG XR PROCEDURES Edited Re sult - Final * Influenza B (ID NOW Rapid Molecular) (09/10/2024 10:32 AM EDT) Influenza B Negative Negative, Indeterminate [facility] Swab 09/10/2024 10:3 2 AM EDT us Sadie Thapa MD POINT OF CARE TEST ENTER/ED IT ORDERABLES Final Result Performing Organization Address City/[facility]/ZIP Co de Phone Number [facility] [address] [place] [phone] * Influenza A (ID NOW Rapid Molecular) (09/10/2024 10:32 AM EDT) Influenza A Negative Negative, Indeterminate [facility] Swab 09/10/2024 10:3 2 AM EDT us Sadie Thapa MD POINT OF CARE TEST ENTER/ED IT ORDERABLES Final Result Performing Organization Address [facility] Co de Phone Number [facility] [address] [place] [phone] * POCT COVID-19 Ag Guillaume ID NOW (09/10/2024 10:32 AM EDT) Coronavirus Antigen PCR Negative Negative, Indeterminate, None Detected, Invalid, Specimen unsatisfactory for evaluation, Weakly Positive, 2+ Swab 09/10/2024 10:3 2 AM EDT us Sadie Thapa MD POINT OF CARE TEST ENTER/ED IT ORDERABLES Final Result * Hepatitis C Antibody with Reflex to HCV, RNA, Quantitative, Real-Time PCR (11/29/2023 9:30 AM EDT) Hepatitis C Antibody Nonreactive Nonreactive [facility] Comment:Antibodies to HCV no t detected; does not exclude early acuteHCV infection. Blood Venous blood specimen / Unknown 11/29/2023 9:30 AM EDT 11/29/2023 11:19 AM EDT us Jaylin Santiago DO LAB BLOOD ORDERABLES Final R esult Performing Organization Address [facility]/ZIP Co de Phone Number [facility] [address] [place] [phone] * Hemoglobin A1c (11/29/2023 9:30 AM EDT) Hemoglobin A1c 5.7 <6.0 % [facility] Comment:Hemoglobin A1C Refer ence Range Adults: 4.8 - 6.0 % Non diabetic: < 6.0 % Goal: < 7.0 %Additional Action Suggested: > 8.0 %Note: Hemoglobin A1c results are invalid for patients with abnormal amounts of HbF. Blood transfusions may impact the HbA1c concentration in the patient sample. Estimated Average Glucose 117 mg/dL [facility] Comment:eAG = Estimated ave rage glucose which is %A1C expressed asaverage glucose, using the formula of the B7K-[id number] Glucose study (ADAG), Diabetes Care, Vol.31,#8,Nov. 2007 Blood Venous blood specimen / Unknown 11/29/2023 9:30 AM EDT 11/29/2023 11:19 AM EDT us aJylin Santiago DO LAB BLOOD ORDERABLES Final R esult [facility] [address] [place] [phone] * (ABNORMAL) Lipid Panel, Standard (11/29/2023 9:30 AM EDT) Triglycerides 80 <150 mg/dL [facility] Comment:Desirable Triglyceri de: less than 150 mg/dLBorderline High Triglyceride 150-199 mg/dLHigh Triglyceride: 200-499 mg/dLVery High Triglyceride: greater than or equal to 5OO mg/dL Cholesterol 167 <200 mg/dL [facility] Comment:Desirable Cholestero l: less than 200 mg/dLBorderline High Cholesterol: 200-239 mg/dLHigh Cholesterol: greater than 239 mg/dL LDL Cholesterol Calculated 107(H) <100 mg/dL [facility] Comment:Desirable LDL: less than 100 mg/dLNear Optimal/Above Optimal LDL: 110- 129 mg/dLBorderline High LDL: 130-159 mg/dLHigh LDL: 160-189 mg/dLVery High LDL: greater than or equal to 190 mg/dL HDL Cholesterol 44 >40 mg/dL [facility] Comment:Desirable HDL: great er than 40 mg/dL Note: This HDL assay may give artificially low results in patients with liver disease. Blood Venous blood specimen / Unknown 11/29/2023 9:30 AM EDT 11/29/2023 11:19 AM EDT Jaylin Santiago DO LAB BLOOD ORDERABLES Final R esult [facility] [address] [place] [phone] * Colonoscopy (10/05/2019) Colonoscopy performed Historical Provider HEALTH MAINTENANCE Edited Result - Final from Last 3 Months or Most Recently Relevant to Health Maintenance Insurance [facility] STANDARD [employer] MEDICARE REPLACEMENT Care Teams Windrower Operator Relationship Specialty Start Date End Date Jaylin Santiago DO [address] [place] [address] PCP - General Family Medicine 11/29/23 Fish Brown, JossueD [address] [place] [phone] Pharmacist Internal Medicine 07/07/23
--- OUTSIDE RECORDS SUMMARY | 2024-09-10 11:48 | XMS_ITS | Encounter Summary ---
Author Organization [employer] Address [address] [facility] [address] [place] [address] Care Team Providers Care Reinforcing Steel Erector Name Role Phone Fish Brown PharmD Unavailable +-[phone] Jaylin Santiago DO Primary Care Provider + [phone] Reason for Visit * Reason Comments Cough Encounter Details Date Type Department Care Team ([facility] st Contact Info) Description 09/10/2024 10:20 AM EDT Office Visit [facility] [address] [place] [address] Sadie Thapa MD [address] [place] [address] Acute cough (Primary Dx); Wheezing Social History Tobacco Use Types Packs/Day Years [...] Orientation Straight 02/22/2022 10 :14 AM EDT documented as of this encounter Last Filed Vital Signs Vital Sign Reading [...] Mass Index 24.87 09/10/2024 10:05 AM EDT documented in this encounter Progress Notes * Sadie Thapa MD - 09/10/2024 10:20 AM EDT SUBJECTIVE Vasyl Mari is a 69 y.o. male who presents for Cough. Cough This is a new problem. The current episode started in the past 7 days. The problem has been unchanged. The cough is Non-productive. Associated symptoms include chills. Pertinent negatives include no chest pain, ear congestion, ear pain, fever, headaches, heartburn, hemoptysis, myalgias, nasal congestion, postnasal drip, rash, rhinorrhea, sore throat, shortness of breath, sweats, weight loss or wheezing. H/o lymphoma in remission. Scheduled for his last visit soon w/ his oncologist. Partner at home has similar symptoms. Problem List[1] Allergies[2] Medications Ordered Prior to Encounter[3] Review of Systems Constitutional: Positive for chills. Negative for fever and weight loss. HENT: Negative for ear pain, postnasal drip, rhinorrhea and sore throat. Respiratory: Positive for cough. Negative for hemoptysis, shortness of breath and wheezing. Cardiovascular: Negative for chest pain. Gastrointestinal: Negative for heartburn. Musculoskeletal: Negative for myalgias. Skin: Negative for rash. Neurological: Negative for headaches. OBJECTIVE Vitals: 09/10/24 1005 BP: (!) 148/90 BP Location: Left arm Patient Position: Sitting BP Cuff Size: Adult Pulse: 61 Resp: 20 Temp: 97.8 ??F (36.6 ??C) TempSrc: Temporal SpO2: 98% Weight: 168 lb 6.4 oz (76.4 kg) Height: 5' 9 (1.753 m) Physical Exam Constitutional: General: He is not in acute distress. Appearance: Normal appearance. He is not ill-appearing, toxic-appearing or diaphoretic. Cardiovascular: Rate and Rhythm: Normal rate. Pulmonary: Breath sounds: Wheezing present. Neurological: Mental Status: He is alert. Assessment/Plan Assessment/Plan Diagnoses and all orders for this visit: Acute cough - Influenza B (ID NOW Rapid Molecular) - Influenza A (ID NOW Rapid Molecular) - POCT COVID-19 Ag Guillaume ID NOW - azithromycin (Zithromax) 250 MG tablet; 500 mg on day 1, 250 mg day 2 through 5 - XR Chest 2 Views; Future - CBC auto differential; Future - C-reactive Protein; Future - Sed Rate by Modified Westergren; Future Differential discussed. Given pt's h/o lymphoma I will treat w/ a course of zpak. Pt is to call if no improvement I the next 5 dayks. Wheezing - albuterol (Ventolin HFA) 108 (90 Base) MCG/ACT inhaler; INHALE 2 PUFFS EVERY 4 HOURS IF NEEDED FOR WHEEZING [1] Patient Active Problem List Diagnosis Benign prostatic hyperplasia CKD (chronic kidney disease) stage 2, GFR 60-89 ml/min Depressive disorder Erectile dysfunction History of B-cell lymphoma Essential hypertension Kidney stone Chronic low back pain History of latent tuberculosis Bifascicular bundle branch block Cholelithiasis Splenic lesion Eczema of external ear, bilateral [2] Allergies Allergen Reactions Augmentin [Amoxicillin-Pot Clavulanate] Neomycin Vitamin E Other reaction(s): Itching, Rash, Rash Magnolia Elastic Foam Strap [Attends Briefs Small] Itching and Rash Eq Vitamins A & D [Cod Liver Oil] Itching and Rash Plasticized Base [Plastibase] Rash [3] Current Outpatient Medications on File Prior to Visit Medication Sig Dispense Refill amitriptyline (Elavil) 10 MG tablet Take 1 tablet (10 mg) by mouth at bedtime. 30 tablet 5 ascorbic acid (Vitamin C) 500 MG tablet Take 500 mg by mouth in the morning. baclofen (Lioresal) 10 MG tablet TAKE 1 TABLET BY MOUTH IN THE MORNING, AT NOON AND AT BEDTIME NEEDED FOR MUSCLE SPASMS 60 tablet 3 betamethasone valerate (Valisone) 0.1 % cream Apply topically if needed in the morning and at bedtime (dryness). 45 g 2 cetirizine (ZyrTEC) 5 MG tablet Take 1 tablet (5 mg) by mouth Once per day. 90 tablet 1 cholecalciferol 50 MCG (2000 UT) tablet Take 1 tablet by mouth in the morning. Cyanocobalamin (Vitamin B-12 ER) 1000 MCG tablet controlled-release Take 1 tablet by mouth in the morning. Dextromethorphan-guaiFENesin (Mucinex DM) 30-600 MG tablet sustained-release 12 hour Use 1 tab TID 28 tablet 0 Diclofenac Sodium 1 % gel Apply 2 g topically if needed in the morning, at noon, in the evening, and at bedtime (pain). 150 g 3 diphenhydrAMINE (BENADryl) 50 MG tablet Take 1 tablet (50 mg) by mouth every 8 (eight) hours if needed for itching or allergies for up to 7 days. 21 tablet 0 fluticasone (Flonase) 50 MCG/ACT nasal spray Administer 2 sprays into each nostril Once per day. Shake gently. Before first use, prime pump. After use, clean tip and replace cap. 48 mL 3 hydrocortisone 0.5 % cream Apply topically 2 times daily. Use for up to 1 week. 15 g 1 Magnesium-Potassium 60-60 MG capsule Take 1 tablet by mouth in the morning. melatonin 3 MG tablet Take 6 mg by mouth. metoprolol succinate XL (Toprol-XL) 100 MG 24 hr tablet Take 1 tablet by mouth at bed time. Multiple Vitamin (ONE-A-DAY MENS PO) Take 1 tablet by mouth in the morning. naproxen (Naprosyn) 500 MG tablet Take 1 tablet (500 mg) by mouth if needed in the morning and at bedtime for mild pain. 10 tablet 0 NIFEdipine CC (Adalat CC) 30 MG 24 hr tablet TAKE 1 TABLET BY MOUTH EVERY DAY 90 tablet 3 omeprazole (PriLOSEC) [address] capsule Take 1 capsule by mouth at bed time. spironolactone (Aldactone) 25 MG tablet Take 25 mg by mouth Once per day. testosterone (Androgel) 50 MG/5GM (1%) gel APPLY 1 PACKET TRANSDERMALLY DAILY FOR 30 DAYS. APPLY TOSHOULDER AND RUB IN UNTIL DRY [DISCONTINUED] albuterol (Ventolin HFA) 108 (90 Base) MCG/ACT inhaler INHALE 2 PUFFS EVERY 4 HOURS IF NEEDED FOR WHEEZING 18 g 1 No current facility-administered medications on file prior to visit. documented in this encounter Plan of Treatment Scheduled Orders Name Type Priority Associated Diagnoses Orde r Schedule CBC auto differential Lab Routine Acute cough Expected: 09/10/2024 (Approximate), Expires: 09/10/2025 C-reactive Protein Lab Routine Acute cough Expected: 09/10/2024 (Approximate), Expires: 09/10/2025 Sed Rate by Modified Westergren Lab Routine Acute cough Expected: 09/10/2024, Expires: 09/10/2025 documented as of this encounter Goals Goal Patient Goal Type Associated Problems Recent Progress Patient-Stated? Author Blood Pressure < 140/90 Blood Pressure 148/90(2024 10:05 AM EDT) No Fish Brown, Angela HDL > 40 Result Component No Fish Brown, Angela Note: Eat foods that help with (HDL) good cholesterol. Beans, avocado, olive oil, & whole grains documented as of this encounter Procedures Procedure Name Priority Date/Time Associated Diagnosis Comments XR CHEST 2 VIEWS Routine 09/10/2024 11:0 2 AM EDT Acute cough POCT INFLUENZA B (ID NOW RAPID MOLECULAR) Routine 09/10/2024 10:32 AM EDT Acute cough POCT INFLUENZA A (ID NOW RAPID MOLECULAR) Routine 09/10/2024 10:32 AM EDT Acute cough POCT COVID-19 AG GUILLAUME ID NOW Routine 09/10/2024 10:32 AM EDT Acute cough documented in this encounter Results * XR Chest 2 Views (09/10/2024 11:02 AM EDT) Anatomical Region Laterality Modality Chest Radiographic Alondra ging 09/10/2024 11:0 2 AM EDT Narrative 09/10/2024 11:26 AM EDT ?[facility] ?[address] ?[place] [address] ?XRay Report ? Signed ? Patient: Vasyl Bahena ?MR#: ?? [id number] ? : 1955 ?Acct:[id number] ? Age/Sex: 69 / M ?ADM Date: 09/10/24 ? Loc: HO.HHCX ? Attending Dr: Sadie Thapa MD ? Ordering Physician: Sadie Thapa MD ?? Date of Service: 09/10/24 ?? Procedure(s): XR chest 2V ?? Accession Number(s): [id number] ? cc: Sadie Thapa MD ? EXAMINATION: [...] DD/ 1102 ? TD/TT: 09/10/24 1117 ? Rheumatology Nurse: ? Procedure Note Donbesskathyter, Image - 09/10/[address] [address] XRay Report Signed Patient: Vasyl BahenaMR#: [id number] : 8Acct:[id number] Age/Sex: 69 / MADM Date: 09/10/24 Loc: HO.HHCX Attending Dr: Sadie Thapa MD Ordering Physician: Sadie Thapa MD Date of Service: 09/10/24 Procedure(s): XR chest 2V Accession Number(s): [id number] cc: Sadie Thapa MD EXAMINATION: XR CHEST [...] Rancho Hartley MD 09/10/2024 11:23 AM EDT Dictated By: Rancho Hartley MD Signed By: <Electronically signed by Rancho Hartley MD in OV> 09/10/24 1123 DD/ 1102 TD/TT: 09/10/24 1117 Rheumatology Nurse: us Sadie Thapa MD IMG XR PROCEDURES Edited Re sult - Final * POCT COVID-19 Ag Guillaume ID NOW (09/10/2024 10:32 AM EDT) [facility] Coronavirus Antigen PCR Negative Negative, Indeterminate, None Detected, Invalid, Specimen unsatisfactory for evaluation, Weakly Positive, 2+ Swab 09/10/2024 10:3 2 AM EDT us Sadie Thapa MD POINT OF CARE TEST ENTER/ED IT ORDERABLES Final Result * Influenza A (ID NOW Rapid Molecular) (09/10/2024 10:32 AM EDT) [facility] Influenza A Negative Negative, Indeterminate [facility] Swab 09/10/2024 10:3 2 AM EDT us Sadie Thapa MD POINT OF CARE TEST ENTER/ED IT ORDERABLES Final Result Performing Organization Address [facility] Co de Phone Number [facility] [address] [place] [phone] * Influenza B (ID NOW Rapid Molecular) (09/10/2024 10:32 AM EDT) [facility] Influenza B Negative Negative, Indeterminate [facility] Swab 09/10/2024 10:3 2 AM EDT Sadie Thpaa MD POINT OF CARE TEST ENTER/ED IT ORDERABLES Final Result Performing Organization Address [facility] de Phone Number [facility] [address] [place] [phone] documented in this encounter Visit Diagnoses Diagnosis Acute cough- Primary Wheezing documented in this encounter Additional Health Concerns Assessment Noted Time PHQ-9 Depression Total Score: 0 04/09/20 24 11:43 AM EST documented as of this encounter Care Teams Reinforcing Steel Erector Relationship Specialty Start Date End Date Jaylin Santiago DO [address] [place] [address] PCP - General Family Medicine 11/29/23 Fish Brown PharmD [address] [place] [address] Pharmacist Internal Medicine 07/07/23 documented as of this encounter
--- OUTSIDE RECORDS SUMMARY | 2024-09-10 11:48 | XMS_ITS | Encounter Summary ---
Author Organization [employer] Address [address] [facility] [address] [place] [address] Care Team Providers Care Wind Up Worker Name Role Phone Fish Brown PharmD Unavailable +-[phone] Jaylin Santiago DO Primary Care Provider + [phone] Reason for Visit * Reason Onset Date Comments Med Refill 09/09/2024 Encounter Details Date Type Department Care Team (Late st Contact Info) Description 09/09/2024 Refill [facility] [address] [place] [address] Jaylin Santiago DO [address] [place], [place] [phone] Viral upper respiratory tract infection Social History Tobacco Use Types Packs/Day Years Used Date Smoking Tobacco: Former Cigarettes Passive Smoke Exposure: Past Smokeless Tobacco: Never Alcohol Use Standard Drinks/Week Comments Never 0 (1 standard drink = 0.6 oz pur e alcohol) Depression Answer Date Recorded Patient Health Questionnaire-9 Score 0 04/09/2024 Patient Health Questionnaire-9 Score 0 04/09/2024 Last PHQ-9: Questionnaire Data Not on file 1 06/10/2023 Housing Stability Answer Date Recorded What is your housing situation today? I have rashaun buffy 10/28/[address] you li [...] AM EDT documented as of this encounter Plan of Treatment Not on file documented as of this encounter Goals Goal Patient Goal Type Associated Problems Recent Progress Patient-Stated? Author Blood Pressure < 140/90 Blood Pressure 148/90(2024 10:05 AM EDT) No Fish Brown PharmD HDL > 40 Result Component No Fish Brown PharmD Note: Eat foods that help with (HDL) good cholesterol. Beans, avocado, olive oil, & whole grains documented as of this encounter Visit Diagnoses Diagnosis Viral upper respiratory tract infection Acute upper respiratory infections of unspecified site documented in this encounter Additional Health Concerns Assessment Noted Time PHQ-9 Depression Total Score: 0 04/09/20 24 11:43 AM EST documented as of this encounter Care Teams Wind Up Worker Relationship Specialty Start Date End Date Jaylin Santiago DO [address] [place], [place] [phone] PCP - General Family Medicine 11/29/23 Fish Brown PharmD [address] [place] [address] Pharmacist Internal Medicine 07/07/23 documented as of this encounter
--- OUTSIDE RECORDS SUMMARY | 2024-09-10 11:48 | XMS_ITS | Encounter Summary ---
Author Organization [employer] Address [address] [facility] 7t [place] [address] Care Team Providers Care Non Destructive Testing Scientist Name Role Phone Fish Brown PharmD Unavailable [phone] Jaylin Santiago DO Primary Care Provider + [phone] Reason for Visit * Reason Onset Date Comments Telephone Call Transfer Request 08/23/2024 Encounter Details Date Type Department Care Team ([facility] st Contact Info) Description 08/23/2024 Telephone [facility] [address] [place] [address] Jaylin Santiago DO [address] [place], [place] [phone] Telephone Call Transfer Request Social History Tobacco Use Types Packs/Day Years [...] AM EDT documented as of this encounter Miscellaneous Notes * Telephone Encounter - Teressa Ty - 08/30/2024 11:24 AM EDT Incoming call from patient on 08/30/24 expressing concerns about the lack of care from his assignedprovider. Patient states his health conditions are chronic and needs continues care however has notbeen seen by his provider since 03/2024. Patients states he arrived on 08/29/24 at 10:52am for his scheduled appt at 11:15am appt. At 12:17pm he approached the receptionist/telephone operator to inform her was tired ofawaiting to be called in and he was going to be leaving because this time wait was extremely unprofessional of the provider to have a patient awaiting over one hour in the waiting room. Patient expresses that he is a cancer patient and has not been seen by his provider in over five months and how is this best practice if the provider herself does not show any kind of empathy to her patients. The marleny goodman and her team never reached out to patient to apologize for him awaiting and leaving withoutbeing seen. Patient is requesting to be transferred immediately from providers panel. Call back number is [phone] documented in this encounter Plan of Treatment Not on [...] documented as of this encounter Visit Diagnoses Not on filedocumented in this encounter Additional Health Concerns Assessment Noted Time PHQ-9 Depression Total Score: 0 04/09/20 24 11:43 AM EST documented as of this encounter Care Teams Non Destructive Testing Scientist Relationship Specialty Start Date End Date Jaylin Santiago DO [address] [place] [address] PCP - General Family Medicine 11/29/23 Fish Brown PharmD [address] [place] [address] Pharmacist Internal Medicine 07/07/23 documented as of this encounter
--- OUTSIDE RECORDS SUMMARY | 2024-09-10 11:48 | XMS_ITS | Encounter Summary ---
Author Organization [facility] Address [address] [facility] [address] [place] [address] Phone Care Team Providers Care Sanitation Manager Name Role Phone Julio Castañeda MD Primary Care Provider Unav ailable Reason for Visit * Reason Comments Med Refill Encounter Details Date Type Department Care Team (Late Contact Info) Description 05/06/2021 Refill [facility] [address] [place] [phone] Arturo Ruiz MD [address] [facility] [address] [place] [address] Social History Tobacco Use Types Packs/Day Years Used Date Smoking Tobacco: Former Smokeless Tobacco: Never Alcohol Use Standard Drinks/Week Comments No 0 (1 standard drink = 0.6 oz pur e alcohol) Sex and Gender Information Value Date Recorded Sex Assigned at Not on file Legal Sex Male 5:13 PM EST Gender Identity Not on file Sexual Orientation Not on file documented as of this encounter Plan of Treatment Upcoming Encounters Date Type Department Care Team (Late Contact Info) Description 09/02/2025 1:30 PM EDT Office Visit [facility] [address] [facility] [address] [place] [address] Arturo Ruiz MD [address] [facility] [address] [place] [address] documented as of this encounter Visit Diagnoses Not on filedocumented in this encounter Care Teams Sanitation Manager Relationship Specialty Start Date End Date Julio Castañeda MD [address] [place] [address] PCP - General Internal Medicine 03/09/21 09/02/24 documented as of this encounter
--- OUTSIDE RECORDS SUMMARY | 2024-09-10 11:48 | XMS_ITS | Encounter Summary ---
Author Organization [employer] Address [address] [facility] 7t [place] [address] Care Team Providers Care Machine Puller Over Name Role Phone Fish Brown PharmD Unavailable +- Jaylin Santiago DO Primary Care Provider + [phone] Reason for Visit * Reason Comments Med Refill Encounter Details Date Type Department Care Team ([facility] st Contact Info) Description 04/17/2024 Refill [facility] MEDICINE [address] [place] [address] Julio Crockett MD [address] [place] [address] Primary hypertension Social History Tobacco Use Types Packs/Day Years [...] is your housing situation today? I have rashaunasael baer 10/28/[address] you [...] as of this encounter Visit Diagnoses Diagnosis Primary hypertension Unspecified essential hypertension documented in this encounter Additional Health Concerns Assessment Noted Time PHQ-9 Depression Total Score: 0 04/09/20 24 11:43 AM EST documented as of this encounter Care Teams Machine Puller Over Relationship Specialty Start Date End Date Jaylin Santiago DO [address] [place] [address] PCP - General Family Medicine 11/29/23 Fish Brown PharmD [address] [place] [address] Pharmacist Internal Medicine 07/07/23 documented as of this encounter
--- OUTSIDE RECORDS SUMMARY | 2024-09-10 11:48 | XMS_ITS | Encounter Summary ---
Author Organization [employer] Address [address] [facility] 7t [place] [address] Care Team Providers Care Weatherization Installer Name Role Phone Fish Brown PharmD Unavailable +- Jaylin Santiago DO Primary Care Provider + [phone] Reason for Visit * Reason Onset Date Comments Med Refill 09/09/2024 Encounter Details Date Type Department Care Team ([facility] st Contact Info) Description 09/09/2024 Refill [facility]INE [address] [place] [address] Julio Crockett MD [address] [place] [address] Social History Tobacco Use Types Packs/Day Years [...] documented as of this encounter Care Teams Weatherization Installer Relationship Specialty Start Date End Date Jaylin Santiago DO [address] [place] [address] PCP - General Family Medicine 11/29/23 Fish Brown PharmD [address] [place] [address] Pharmacist Internal Medicine 07/07/23 documented as of this encounter
--- OUTSIDE RECORDS SUMMARY | 2024-09-10 11:48 | XMS_ITS | Encounter Summary ---
Author Organization [employer] Address [address] [place] [address] 7t [place] [address] Care Team Providers Care Lpn Per Diem Name Role Phone Julio Crockett MD Primary Care Provide r Fish Brown PharmD Unavailable +- Jaylin Santiago DO Primary Care Provider + [phone] Encounter Details Date Type Department Care Team (Late st Contact Info) Description 09/02/2022 Abstract [facility] MEDICINE [address] [place] [address] Julio Crockett MD [address] [place], [place] [phone] Social History Tobacco Use Types Packs/Day Years Used Date Smoking Tobacco: Never Passive Smoke Exposure: Never Smokeless Tobacco: Never Alcohol Use Standard Drinks/Week [...] 148/90(2024 10:05 AM EDT) No Fish Brown, PharmD HDL > 40 Result Component No Fish Brown, PharmD Note: Eat foods that help with (HDL) good cholesterol. Beans, avocado, olive oil, & whole grains documented as of this encounter Visit Diagnoses Not on filedocumented in this encounter Care Teams Lpn Per Diem Relationship Specialty Start Date End Date Julio Crockett MD [address] [place] [address] PCP - General Internal Medicine 12/26/13 11/28/23 Jaylin Santiago DO [address] [place] [address] PCP - General Family Medicine 11/29/23 Fish Brown PharmD [address] [place] [address] Pharmacist Internal Medicine 07/07/23 documented as of this encounter
--- OUTSIDE RECORDS SUMMARY | 2024-09-10 11:48 | XMS_ITS | Encounter Summary ---
Author Organization [facility] Address [address] [place] [address] Phone Care Team Providers Care Press Operator Name Role Phone Julio Castañeda MD Primary Care Provider Unav ailable Reason for Visit * Reason Onset Date Comments Losartan RX 02/18/2021 Encounter Details Date Type Department Care Team (Late st Contact Info) Description 02/18/2021 Telephone [facility] [address] [place] [address] Wanda Carnes Losartan RX Social History Tobacco Use Types Packs/Day Years Used Date Smoking Tobacco: Former Alcohol Use Standard Drinks/Week Comments No 0 (1 standard drink = 0.6 oz pur e alcohol) Sex and Gender Information Value Date Recorded Sex Assigned at Not on file Legal Sex Male 5:13 PM EST Gender Identity Not on file Sexual Orientation Not on file documented as of this encounter Miscellaneous Notes * Telephone Encounter - Arturo Ruiz MD - 02/20/2021 1:22 PM EDT {{{{{{ * Telephone Encounter - Arturo Ruiz MD - 02/19/2021 5:40 PM EDT Please send me a script with the correct pharmacy Losartan 25 mg 2 tabs in Am and 1 tab in PM 90 days supply Thx * Telephone Encounter - Wanda Carnes - 02/18/2021 3:28 PM EDT [facility] called requesting a new prescription for pt's Losartan reflecting that he takes 75 mg a day. 50mg in the morning and 25mg at night. documented in this encounter Plan of Treatment Upcoming Encounters Date Type Department Care Team (Late st Contact Info) Description 09/02/2025 1:30 PM EDT Office Visit [facility] [address] [address] Arturo Ruiz MD [address] [phone] documented as of this encounter Visit Diagnoses Not on filedocumented in this encounter Care Teams Press Operator Relationship Specialty Start Date End Date Julio Castañeda MD [address] [place] [address] PCP - General Internal Medicine 03/09/21 09/02/24 documented as of this encounter
--- OUTSIDE RECORDS SUMMARY | 2024-09-10 11:48 | XMS_ITS | Encounter Summary ---
Author Organization [employer] Address [address] [facility] 7t [place] [address] Care Team Providers Care Shot Bagger Name Role Phone Julio Crockett MD Primary Care Provide r Fish Brown PharmD Unavailable +- Jaylin Santiago DO Primary Care Provider + [phone] Reason for Visit * Reason Comments Med Refill Encounter Details Date Type Department Care Team ([facility] st Contact Info) Description 05/03/[address] [facility] [address] [place] [address] Naren Skaggs MD [address] [place], [place] [phone] Social History Tobacco Use Types Packs/Day Years Used Date Smoking Tobacco: Former Cigarettes Passive Smoke Exposure: Past Smokeless Tobacco: Never Alcohol Use Standard Drinks/Week Comments Never 0 (1 standard drink = 0.6 oz pur e alcohol) Depression Answer Date Recorded Patient Health Questionnaire-9 Score 2 09/16/2022 Housing Stability Answer Date Recorded What is your housing situation today? I have rashaun baer 02/14/[address] you li ve. Do you have problems with any of the following? None of the above 02/14/2023 Food Insecurity Answer Date Recorded Within the past 12 months, y ou worried that your food would run out before you got money to buy more: Never True 02/14/2023 Within the past 12 months,th e food you bought just didn't last and you didn't have enough money to get more: Never True Transportation Answer Date Recorded In the past 12 months, has l ack of transportation kept you from medical appts, meetings, work or from getting things needed for daily living? Yes, it has kept me from medical appointments or getting medications. 02/01/2023 Utilities Answer Date Recorded In the past 12 months, has t he electric, gas, oil or water company threatened to shut off services in your home? No 02/14/2023 Depression Answer Date Recorded Patient Health Questionnaire-2 Score 0 09/16/2022 Sex and Gender Information Value Date Recorded [...] Assessment Noted Time PHQ-9 Depression Total Score: 2 09/17/19 23 10:38 AM EDT documented as of this encounter Care Teams Shot Bagger Relationship Specialty Start Date End Date Julio Crockett MD [address] [place] [address] PCP - General Internal Medicine 12/26/13 11/28/23 Jaylin Santiago DO [address] [place] [address] PCP - General Family Medicine 11/29/23 Fish Brown PharmD [address] [place] [address] Pharmacist Internal Medicine 07/07/23 documented as of this encounter
== END 2024-09-10 11:02 | disposition home or self-care (01) ==
LOC: HO.HHCX 11:01
PROVIDERS: Visit Provider Internal Medicine
DX: R05.1 Acute cough (principal)
CPT/HCPCS: 71046

== ENCOUNTER → 2024-09-10 11:02 | Outpatient (BNV) | payer MEDICARE, SELFPAY | PROVIDERS: Visit Provider Radiology Diagnostic Radiology | DX: R05.1 Acute cough (principal) | CPT/HCPCS: 71046 ==

== ENCOUNTER 2024-09-19 13:50 | Emergency (ER) | payer MEDICARE, SELFPAY ==
[2024-09-19 14:11] VITALS: BP 152/96; PULSE 83; RESP 16; TEMP 36.8; O2SAT 97; BMI 23.9
--- NOTE | 2024-09-19 14:12 | ED.BACK ---
HPI - Back Pain/Injury General Chief Complaint: Back Pain/Injury Stated Complaint: Back Pain, Trouble Walking Time Seen by Provider: 09/19/24 14:20 Source: patient and old records reviewed Mode of arrival: wheelchair Limitations: no limitations History of Present Illness ED Provider: TOM RG Narrative: 69 yo male with PMH of HTN, kidney stones, lumbar radiculopathy, GERD, not on blood thinners here with c/o back pain for 1 day. He denies any known injury. He did bend down on Tuesday with pain. No response to ibuprofen or baclofen. He has not had back surgery before. He takes no blood thinners and no IVDA. He states it hurts to bend down. He can walk but it hurts. He can walk it is painful MD elicited complaint: back pain and back injury Pertinent past history: prior back pain Onset (ago): day(s) (3) Timing: progressively worsening Severity: moderate Similar Symptoms Previously: Yes Quality: spasming and throbbing Location: lumbar spine Radiation: none Exacerbating factors: movement, walking and coughing/sneezing Relieving factors: none Context: bending Associated symptoms: denies other symptoms Treatments prior to arrival: NSAIDS Work related injury: No Related Data Home Medications ?Medication ?Instructions ?Recorded ?Confirmed omeprazole 20 mg capsule,delayed 20 mg PO DAILY 05/29/20 05/04/24 release metoprolol succinate 100 mg 100 mg PO DAILY 03/31/22 05/04/24 tablet,extended release 24 hr nifedipine 30 mg tablet,extended 30 mg PO DAILY 03/31/22 05/04/24 release spironolactone 25 mg tablet 25 mg PO DAILY 03/31/22 05/04/24 ammonium lactate 12 % topical cream 1 appl topical NEEDED PRN Dry 06/30/22 05/04/24 Skin cetirizine 10 mg tablet 1 tab PO DAILY PRN itch 06/30/22 05/04/24 cholecalciferol (vitamin D3) 25 25 mcg PO DAILY 06/30/22 05/04/24 mcg (1,000 unit) tablet multivitamin (Daily Multi-Vitamin 1 tab PO DAILY 06/30/22 05/04/24 tablet) Previous Rx's ?Medication ?Instructions ?Recorded testosterone 1 % (50 mg/5 gram) 1 packet transdermal DAILY 30 days 10/08/24 transdermal gel packet #150 grams lidocaine 5 % topical patch 1 patch topical .COMPLEX pain #30 05/04/24 ea lidocaine 4 % topical patch 1 patch topical DAILY PRN pain #30 09/19/24 ea morphine 15 mg immediate release 15 mg PO Q6H PRN pain #12 tabs 09/19/24 tablet prednisone 10 mg tablet 10 mg PO DIRECTED #41 tabs 09/19/24 Allergies Allergy/AdvReac Type Severity Reaction Status Date / Time vitamin E (d-alpha Allergy Itching Verified 09/19/24 14:18 tocopherol) Review of Systems Review of Systems: Constitutional : No Weight loss, No Fever, No Chills, ENT/Mouth : No Hearing loss, No Ear Pain, No Nasal Congestion, No Sinus Pain, No Hoarseness, No sore throat, No Rhinorrhea, No Swallowing Difficulty Cardiovascular : No Chest Pain, No SOB Respiratory : No Cough, No Dyspnea Gastrointestinal : No Nausea, No Vomiting, No Diarrhea, No abdominal Pain, No Hematochezia, No Melena Genitourinary : No Dysuria, No Urinary Frequency, No Hematuria, No Urinary Incontinence, Musculoskeletal : positive back pain Skin : No Skin Lesions, No rash Neuro : No Weakness, No Numbness, No Paresthesias, no loss of bowel or bladder incontinence, no saddle anesthesia all other systems reviewed and are negative [facility] Past Medical History Attestation statement: The following information was validated with the patient. Source: old records reviewed Medical History Bifascicular block Hypertension Lymphoma Surgical History No pertinent past surgical history Family History Family History Mother Recurrent strokes Father Heart disease History of throat cancer Social History Social History Household Members: Spouse Housing: Apartment Do you presently have visiting nurse or other home services: No Alcohol intake: unknown Patient Tobacco Use Status: Never used Tobacco service: No Current occupational status: employed Physical Exam Vital Signs: Appearance: Alert. Oriented X3. No acute distress. Eyes: Pupils equal, round and reactive to light. ENT: Pharynx normal. Neck: Normal inspection. Neck supple. CVS: Normal heart rate and rhythm. Pulses normal. Respiratory: No respiratory distress. Breath sounds normal. Abdomen: Soft and nontender. Back: ttp along bilateral lumbar spine paraspinals Skin: Skin warm and dry. Normal skin color. Normal skin turgor. Extremities: No lower extremity edema. No calf ttp Neuro: Oriented X 3. No motor deficit. No sensory deficit. CN2-12 intact SILT inner thigh, pulses distal intact, L5 5/5 bilaterally 2+ DTR intact in patella area. Course Course Course Narrative: 69 yo male with PMH of HTN, kidney stones, lumbar radiculopathy, GERD, not on blood thinners here with c/o back pain for 1 day. He denies any known injury. He did bend down on Tuesday with pain. No response to ibuprofen or baclofen. Medical Decision Making Medical Decision Making [facility] Narrative: 69 yo male with PMH of HTN, kidney stones, lumbar radiculopathy, GERD, not on blood thinners here with c/o low back pain after bending down now pain with movements - no fall. He is NV intact and has no cauda equina symptoms. Will start on steroids and pain medications. He does not need xray as he did not fall and I do not suspect broken bone. He will need to follow up with PCP for PT. Differential Diagnosis Differential Diagnoses: The differential diagnosis associated with the presentation includes radiculopathy, disc herniation, muscle spasm Admission/Observation Consideration of admission/observation: Escalation of care including admission/observation considered no cauda equina symptoms can ambulate stable for DC External Record Review External record reviewed: Outpatient record Prescription Management I considered prescription management with: Pain Medication and Other Discharge Plan Discharge Clinical Impression: Lumbar disc herniation with radiculopathy Patient Disposition: Home, Self-Care Instructions: Low Back Strain (ED), Lower Back Exercises (ED) Additional Instructions: return for numbness, weakness, loss of control of bowel or bladder follow up with primary care provider for physical therapy rest and stay hydrated Prescriptions: New lidocaine 4 % adhesive patch,medicated 1 patch topical DAILY PRN (Reason: pain) Qty: 30 0RF prednisone 10 mg tablet 10 mg PO DIRECTED Qty: 41 0RF Rx Instructions: see taper instructions 60mg on day 1-5, 40mg on day 6, 30mg on day 7, 20mg on day 8, 10mg on day 9, 5mg on day 10 morphine 15 mg tablet 15 mg PO Q6H PRN (Reason: pain) Qty: 12 0RF Rx Instructions: partial fill okay; Partial Fill upon patient request. No Action cetirizine 10 mg tablet 1 tab PO DAILY PRN (Reason: itch) ammonium lactate 12 % cream 1 appl topical NEEDED PRN (Reason: Dry Skin) multivitamin [Daily Multi-Vitamin] Tablet 1 tab PO DAILY cholecalciferol (vitamin D3) 25 mcg (1,000 unit) Tablet 25 mcg PO DAILY omeprazole 20 mg capsule,delayed release(DR/EC) 20 mg PO DAILY metoprolol succinate 100 mg tablet extended release 24 hr 100 mg PO DAILY nifedipine 30 mg tablet extended release 30 mg PO DAILY spironolactone 25 mg tablet 25 mg PO DAILY testosterone 1 % (50 mg/5 gram) gel in packet 1 packet transdermal DAILY 30 Days Qty: 150 5RF Rx Instructions: Apply to shoulder and rub in until dry lidocaine 5 % adhesive patch,medicated 1 patch topical .COMPLEX Qty: 30 0RF Rx Instructions: 1 patch topically; Referrals: [facility] [Provider Group] Stand Alone Forms: Work/School Release Print Language: Qatari
--- OUTSIDE RECORDS SUMMARY | 2024-09-19 15:21 | XMS_ITS | Encounter Summary ---
Author Organization [employer] Address [address] [facility] 7t [place] [address] Care Team Providers Care Vending Service Technician Name Role Phone Fish Brown PharmD Unavailable [phone] Jaylin Santiago DO Primary Care Provider + [phone] Reason for Visit * Reason Onset Date Comments Med Refill 09/09/2024 Encounter Details Date Type Department Care Team (Late st Contact Info) Description 09/09/2024 Refill [facility] MEDICINE [address] [place] [address] Jaylin Santiago DO [address] [place] [address] Viral upper respiratory tract infection Social History [...] Author Blood Pressure < 140/90 Blood Pressure 136/98(2024 9:05 AM EDT) No Fish Brown PharmD HDL [...] documented as of this encounter Care Teams Vending Service Technician Relationship Specialty Start Date End Date Jaylin Santiago DO [address] [place], [place] [phone] PCP - General Family Medicine 11/29/23 Fish Brown PharmD [address] [place] [address] Pharmacist Internal Medicine 07/07/23 documented as of this encounter
[2024-09-19 15:29] VITALS: BP 152/96; PULSE 83; RESP 16; TEMP 36.8; O2SAT 97
== END 2024-09-19 14:40 | disposition home or self-care (01) ==
PROVIDERS: Emergency Provider Emergency Medicine; PCP Family Medicine
DX: M51.16 Intervertebral disc disorders with radiculopathy, lumbar region (principal)
CPT/HCPCS: 99282; 99283

== ENCOUNTER 2024-10-16 08:55 | Outpatient (REF) | payer MEDICARE, SELFPAY ==
--- NOTE | ~2024-10-16 | US_ITS ---
CLINICAL HISTORY: N20.0 - Calculus of kidney US renal Comparison: None Findings: Right kidney 9.3 cm length. No significant focal abnormality. Left kidney 9.6 cm length. No significant focal abnormality. No bilateral hydronephrosis. Normal bilateral renal echogenicity. Impression: No significant abnormalities. This document has been electronically signed by: Jose Jaimes MD on 10/16/2024 23:30:57
--- OUTSIDE RECORDS SUMMARY | 2024-10-16 09:21 | XMS_ITS | Encounter Summary ---
Author Organization [employer] Address [address] [place] [address] 7t [place] [address] Care Team Providers Care Sonar Watchstander Name Role Phone Fish Brown PharmD Unavailable [phone] Jaylin Santiago DO Primary Care Provider + [phone] Name, Star HAYES Primary Care Provider [phone] Reason for Visit * Reason Onset Date Comments Med Refill 09/09/2024 Encounter Details Date Type Department Care Team (Late st Contact Info) Description 09/09/2024 Refill [facility] [address] [place] [address] Jaylin Santiago DO [address] [place], [place] [phone] Viral upper respiratory tract infection Social History [...] Care Team (Late st Contact Info) Description 12/27/2024 10:45 AM EDT Office Visit [facility] [address] [place] [phone] Name, MD Star [address] [place] [address] documented as of this encounter Goals Goal Patient Goal Type Associated Problems Recent Progress Patient-Stated? Author Blood Pressure < 140/90 Blood Pressure 130/93(2024 10:45 AM EDT) No Fish Brown, PharmMitchel HDL > 40 Result Component No Fish [...] documented as of this encounter Care Teams Sonar Watchstander Relationship Specialty Start Date End Date Jaylin Santiago DO [address] [place], [place] [phone] PCP - General Family Medicine 11/29/23 10/01/24 Star Contreras MD [address] [place] [phone] PCP - General Internal Medicine 10/02/24 Fish Brown, JossueD [address] [place] [phone] Pharmacist Internal Medicine 07/07/23 documented as of this encounter
== END 2024-10-16 08:56 | disposition home or self-care (01) ==
LOC: HO.US 08:55
PROVIDERS: PCP Family Medicine; Visit Provider Urology
DX: N20.0 Calculus of kidney (principal)
CPT/HCPCS: 76775

== ENCOUNTER → 2024-10-16 08:56 | Outpatient (BNV) | payer MEDICARE, SELFPAY | PROVIDERS: PCP Family Medicine; Visit Provider Radiology Diagnostic Radiology | DX: N20.0 Calculus of kidney (principal) | CPT/HCPCS: 76775 ==

== ENCOUNTER 2024-11-01 10:39 | Outpatient (AMB) | payer MEDICARE, MEDICAID, SELFPAY ==
--- NOTE | 2024-11-01 11:01 | MHC.OFFVIS ---
Intake Visit Reasons: 6m/US Intake Note: Patient is present for 6 mo follow up for kidney stones and low libido Imaging done: 10/16/24 Urology Medication:TESTOSTERONE Antibiotic Allergy:NONE Blood Thinner:NONE Log Carrier Operator Required: Yes Log Carrier Operator Language: Tongan Accompanied by: Self / Same As Patient Allergies vitamin E (d-alpha tocopherol) Allergy (Verified 11/01/24 11:02) Itching HPI Comments Details: Vasyl is a pleasant Tongan-speaking male. He is a patient of Dr. Castañeda. He is seen for the following urologic conditions - nephrolithiasis - low libido Tongan translation provided by qualified diagnostic medical sonographer Six-month follow-up renal ultrasound no stone seen Testosterone borderline At the station are interested in testosterone management Primary issue was discomfort of right testicle Has discomfort on epididymis with epididymal scar 12 month follow-up Male hypogonadism States progressive low libido Lack of morning erections at initial evaluation Declining erectile quality Baseline labs 10/16 T 247 FT 60 FSH 15 LH 7.4, 02/15 T 287 FT 71, 05/19 307 65 Nephrolithiasis Underwent ureteroscopy for proximal left ureteric stone Imaging 07/15 CT scan 6 mm proximal left ureteric stone 10/16 renal ultrasound no evidence of stones 10/17 renal ultrasound no evidence of stone Stone composition 07/15 calcium oxalate monohydrate 80% Therapeutic plan - 64 oz fluid intake - lemon water therapy PFSH Medical History Bifascicular block Hypertension Lymphoma Surgical History No pertinent past surgical history Family History Mother Recurrent strokes Father Heart disease History of throat cancer Social History Household Members: Spouse Housing: Apartment Do you presently have visiting nurse or other home services: No Alcohol intake: unknown Patient Tobacco Use Status: Never used Tobacco service: No Current occupational status: employed Review of Systems Const Denies chills and Denies fever(s) Card Reports no additional complaints and Denies syncope Resp Denies cough GI Denies abdominal pain and Denies heartburn Reports as per HPI and Denies change in libido Neuro Denies syncope Psych Denies change in libido Endo Denies change in libido Physical Exam Const General: cooperative, healthy appearing, comfortable and no acute distress Orientation/consciousness: patient oriented x3 HEENT Face and sinus: Yes normal facial exam Mouth: moist mucous membranes Neck Neck: Yes normal visual inspection, Yes full ROM and Yes trachea midline Chest Chest palpation & inspection: normal inspection of the chest Resp Effort & Inspection: normal respiratory effort, able to speak in complete sentences and no respiratory distress GI Inspection: Yes normal to inspection Back/Spine/Pelvis Cervical Spine: normal cervical lordosis Thoracic/Lumbar Spine: thoracic and lumbar spine normal to inspection Skin General skin exam: no rashes or lesions noted Neuro General: patient oriented x3, gait normal, tone normal and moves all extremities Extrem General: Yes normal to inspection and Yes capillary refill normal Assessment & Plan Assessment & Plan (1) Low libido: Code(s): R68.82 - Decreased libido Category: Medical (2) Nephrolithiasis: Code(s): N20.0 - Calculus of kidney Category: Medical Plan Twelve month follow-up repeat ultrasound Orders: Orders US renal BI 12 Months N20.0 - Calculus of kidney Patient Instructions: This note is constructed using voice recognition software. While every effort has been made to ensure accuracy supervisor purification errors may have been included. Imaging studies, laboratory and physical exam results were discussed and reviewed in detail. No major barriers to patient understanding were identified. An opportunity to ask questions regarding the treatment plan was provided. All questions were answered. The patient expressed understanding and agreement with the above treatment plan. The patient is aware they should contact our office by phone for worsening of their current condition or the appearance of new urologic symptoms. Compliance is encouraged with any medications and followup testing that is ordered. It is a privilege to participate in the urologic care of your patient. If you have any questions or concerns regarding treatment for the above conditions, or other urologic issues, please do not hesitate to contact me. The office telephone contact is [phone]. Sincerely, Dr Thony Walker MD, [facility] - Urology Compassionate Specialist Care for the Genitourinary System Coding Level of Care Code Est Pt Level 3 (54528) Complex EM visit Add On G2211 Diagnoses Low libido R68.82 Nephrolithiasis N20.0
--- OUTSIDE RECORDS SUMMARY | 2024-11-01 11:20 | XMS_ITS | Encounter Summary ---
Author Organization [employer] Address [address] [place] [address] [address] [place] [address] Care Team Providers Care Neon Sign Mechanic Name Role Phone Fish Brown PharmD Unavailable [phone] Jaylin Santiago DO Primary Care Provider [phone] Name, Star HAYES Primary Care Provider [phone] Reason for Visit * Reason Onset Date Comments Med Refill 09/09/2024 Encounter Details Date Type Department Care Team (Late st Contact Info) Description 09/09/2024 Refill [facility] [address] [place] [address] Jaylin Santiago DO [address], [place] [phone] Viral upper respiratory tract infection Social History [...] Care Team (Late st Contact Info) Description 12/07/2024 10:30 AM EDT Office Visit [address] [address] Stephen Zamudio MD [address] [place] [phone] 12/27/2024 10:45 AM EDT Office Visit [address] [address] Name, MD Star [address] [place] [phone] documented as of this encounter Goals Goal Patient Goal Type Associated Problems Recent Progress Patient-Stated? Author Blood Pressure < 140/90 Blood Pressure 130/93(2024 10:45 AM EDT) No Fish Brown PharmD HDL [...] documented as of this encounter Care Teams Neon Sign Mechanic Relationship Specialty Start Date End Date Jaylin Santiago DO [address] [place] [address] PCP - General Family Medicine 11/29/23 10/01/24 Name, MD Star [address] [place] [address] PCP - General Internal Medicine 10/02/24 Fish Brown, Angela [address] [place] [phone] Pharmacist Internal Medicine 07/07/23 documented as of this encounter
--- OUTSIDE RECORDS SUMMARY | 2024-11-01 11:21 | XMS_ITS | Encounter Summary ---
Author Organization [facility] Address [address] [place] [address] Phone Care Team Providers Care Laser Beam Trim Operator Name Role Phone Julio Castañeda MD Primary Care Provider Unav ailable Reason for Visit * Reason Onset Date Comments Losartan RX 02/18/2021 Encounter Details Date Type Department Care Team (Late st Contact Info) Description 02/18/2021 Telephone [facility] [address] [place] [address] Wanda Carnes Social History Tobacco Use Types Packs/Day Years [...] Wanda Carnes - 02/18/2021 3:28 PM EDT [facility] pharmacy called requesting a new prescription for pt's Losartan reflecting that he takes 75 mg a day. 50mg in the morning and 25mg at night. documented in this encounter Plan of Treatment Upcoming Encounters Date Type Department Care Team (Late st Contact Info) Description 09/02/2025 1:30 PM EDT Office [facility] [address] [phone] Arturo Ruiz MD [address] [phone] documented as of this encounter Visit Diagnoses Not on filedocumented in this encounter Care Teams Laser Beam Trim Operator Relationship Specialty Start Date End Date Julio Castañeda MD [address] [place] [address] PCP - General Internal Medicine 03/09/21 09/02/24 documented as of this encounter
--- OUTSIDE RECORDS SUMMARY | 2024-11-01 11:21 | XMS_ITS | Patient Health Record ---
Author Organization [facility] Address [address] [place] [address] Care Team Providers Care Automatic Fancy Machine Operator Name Role Phone Maddy King MD, Julio Primary Care Provide r Unavailable Ahmet Wynn Jr Unavailable Reason For Referral No Information Medications Medication SIG (Take, Route, Frequency, Duration) Notes Start Date End Date Status Baclofen 10 MG 1 tablet with food o r milk Orally as needed Active ProAir HFA 108 (90 Base) MCG/ACT 2 puffs as needed Inhalation every 6 hrs Active Naprosyn 500 1 tablet with food o r milk Orally Twice a day Active MiraLax (colon prep) 8.3 ounce ((238) grams mixed with Gatorade or Crystal Light orally begin at 5:00 p.m. the day before the procedure for 1 day 04/12/2019 Active Osteo Bi-Flex Adv Double St - as directed Orally every 12 hours Active amLODIPine Besylate 5 MG 1 tablet Orally Once a day for 30 day(s) Active Lisinopril 30 MG 1 tablet Orally Once a day for 30 day(s) Active Flonase Allergy Relief 50 MCG/ACT 1 spray in each nostril Nasally Once a day for 30 day(s) Active PriLOSEC OTC 20 MG 1 tablet 30 minutes before morning meal Orally Once a day Active Mometasone Furoate 0.1 % 1 application E xternally Once a day Active Acetaminophen 325 MG 2 tablet as needed Orally every 6 hrs Active Lotrisone 1-0.05 % 1 application Senior Major Gifts Officer ally Twice a day Active Benadryl Allergy 25 MG 1 tablet at bedti me as needed Orally Once a day for 30 day(s) Active Triamcinolone Acetonide (PF) Active Immunizations Vaccine Route Administration Date Status Comme nts Influenza Unknown 12/24/2018 Administered Social History Tobacco Use: Social History Observation Description Date Details (start date - stop date) Former Smoker NA - NA Tobacco Use/Smoking Question Answer Notes Patient is a former smoker When did you stop smoking? age [age] How long has it been since you last smoked? > 10 years Alcohol Screen Question Answer Notes Did you have a drink containing alcohol in the p ast year? 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 [address] [place] [address] [id number] CONCHIS VAZQUEZ Self - patient is the insured Medical (General) History Medical History History ICD Code hypertension depression lumbar radiculopathy right bundle-branch block PPD positive chronic kidney disease lymphoma gastroesophageal reflux disease Surgical History Surgery Date(Month/Year) gallbladder tumor removed and biopsy
--- OUTSIDE RECORDS SUMMARY | 2024-11-01 11:21 | XMS_ITS | Data Portability ---
Author Organization [employer] [facility] Address [address] [place] [phone] Care Team Providers Care Online Tutor Name Role Phone HIM CCA OTHER Assessment Encounter Date Assessment Date Assessment LastModified by Organization Details LastModified Time 10/13/2023 10/13/2023 I have reviewed and agree with the assessment and plan as documented by the blood bank attendant. I provided real time medical direction for this encounter and was immediately available to provide additional phone based assistance as needed. History as noted by blood bank attendant. Pt with history of L sided sciatica reports that 1 week ago he slipped but did not fall, but during the episode he exacerbated his chronic L sided sciatica pain. He reports being seen in the ED last week and is currently taking gabapentin, lidocaine patches, acetaminophen and is also on prednisone. Pt reports he has continued pain. No lower extremity numbness, weakness or paresthesias. No saddle paresthesia or any changes in B/B habits. On exam, pt in no distress. Motor strength and sensation intact and symmetric in the BLEs. Gait normal. Pt with an acute exacerbation of chronic L sided lumbar radicular pain. He denies any concerning neurologic or red flag symptoms and his neuro exam and gait are normal today. Pt is medicated with toradol 30mg IM. He is told to continue the gabapentin, tylenol and lidocaine patches and to complete the prescribed course of prednisone. Discussed with pt that physical therapy would probably be most effective for his symptoms. Primary care team: Please call and follow up with the pt to check on his symptoms. If still not improving, please refer him to PT for further evaluation and management. Pt instructed to seek medical attention right away with any worsening or new symptoms, which are reviewed with him. [email or web address] Not available 10/13/2023 12:21:19 10/19/2023 10/19/2023 I have reviewed and agree with the assessment and plan as documented by the blood bank attendant. I provided real-time medical direction for this encounter and was immediately available to provide additional phone-based assistance as needed. 68M left sciatic pain, x 2 weeks. Pt well appearing today, no acute injury noted, however complaining of ongoing pain. Vitals at baseline. Pt finished steroids with good effect, now Tylenol/lidocain e patches do not seem to be working. Recommend ibuprofen 400-600mg every 6 hours as needed. Toradol 15mg IM x1 today. Red flags and return precautions discussed paysola Not available 10/19/2023 17:00:18 Plan of Treatment Reminders Order Date Submit Date Provider Last Modified By Organization Details Last Modified Time Details Appointments None recorded. Lab None recorded. Referral None recorded. Procedures None recorded. Surgeries None recorded. Imaging None recorded. Medication Orders ketorolac 30 mg/mL injection solution 2023 024 [id number], [address] [facility], [place], [address], 17:01:04 ketorolac 60 mg/2 mL intramuscul ar solution 2023 024 btils Not available 12:32:31 Patient TargetsNo targets recorded. Patient InstructionsNo instructions recorded. Reason for Referral None Reported. Medical Equipment None Reported. Medications Name Sig Start Date Stop Date Status Note LastModified by Organization Details LastModified Time hydrocortiso ne 0.5 % topical cream APPLY TO AFFECTED AREA TWICE A DAY active Not Available Not Available No t Available trazodone 50 mg tablet TAKE 1 TABLET BY MOUTH EVERY DAY AT BEDTIME NEEDED FOR 30 DAYS active Not Available Not Available No t Available prednisone 20 mg tablet TAKE 2 TABLETS (40 MG) BY MOUTH ONCE PER DAY FOR 5 DAYS. active Not Available Not Available No t Available metoprolol succinate ER 100 mg tablet,exten ded release 24 hr TAKE 1 TABLET (100 MG TOTAL) BY MOUTH 1 (ONE) TIME EACH DAY DO NOT CRUSH OR CHEW active Not Available Not Available No t Available methylpredni solone 4 mg tablet TAKE 6 TABLETS ON DAY 1 DIRECTED ON PACKAGE AND DECREASE BY 1 TAB EACH DAY FOR A TOTAL OF 6 DAYS active Not Available Not Available No t Available bacitracin 500 unit/gram topical ointment APPLY TO AFFECTED AREA TWICE A DAY active Not Available Not Available No t Available nifedipine ER 30 mg tablet,exten ded release TAKE 1 TABLET BY MOUTH EVERY DAY active Not Available Not Available No t Available acetaminophe n 500 mg tablet TAKE 2 TABLETS EVERY 6 (SIX) HOURS IF NEEDED FOR MODERATE PAIN OR FEVER FOR UP TO 25 DOSES. active Not Available Not Available No t Available spironolacto ne 25 mg tablet TAKE 1 TABLET BY MOUTH EVERY DAY active Not Available Not Available No t Available guaifenesin 200 mg tablet TAKE 2 TABLETS (400 MG) BY MOUTH EVERY 4 (FOUR) HOURS IF NEEDED FOR COUGH FOR UP TO 10 DAYS active Not Available Not Available No t Available cefadroxil 500 mg capsule TAKE 1 CAPSULE (500 MG) BY MOUTH 2 TIMES DAILY FOR 10 DAYS active Not Available Not Available Not Available betamethason e valerate 0.1 % topical cream APPLY TOPICALLY IF NEEDED IN THE MORNING AND AT BEDTIME FOR DRYNESS active Not Available Not Available Not Available baclofen 10 mg tablet TAKE 1 TABLET BY MOUTH 3 TIMES DAILY active Not Available Not Available Not Available benzonatate 100 mg capsule PLEASE SEE ATTACHED FOR DETAILED DIRECTIONS active Not Available Not Available N ot Available omeprazole 20 mg capsule,lilia yed release TAKE 1 CAPSULE (20 MG TOTAL) BY MOUTH DAILY DO NOT CRUSH OR CHEW active Not Available Not Available No t Available mupirocin 2 % topical ointment APPLY TOPICALLY 3 TIMES DAILY FOR 10 DAYS. active Not Available Not Available No t Available gabapentin 100 mg capsule TAKE 2 CAPSULES BY MOUTH 3 TIMES A DAY,X7 DAYS active Not Available Not Available Not Available albuterol sulfate HFA 90 mcg/actuatio n aerosol inhaler INHALE 2 PUFFS BY MOUTH EVERY 4 HOURS IF NEEDED FOR WHEEZING. active Not Available Not Available No t Available ketorolac 60 mg/2 mL intramuscula r solution Inject 30 mg by intramuscul ar route. 2023 active Not Available Not Available Not Avai lable losartan 100 mg tablet TAKE 1 TABLET BY MOUTH 1 TIME EACH DAY. active Not Available Not Available No t Available fluticasone propionate 50 mcg/actuatio n nasal spray,suspen scott SPRAY 1 SPRAY INTO EACH NOSTRIL IN THE MORNING active Not Available Not Available Not Available clotrimazole 1 % topical cream APPLY TOPICALLY 2 TIMES DAILY FOR 28 DAYS. active Not Available Not Available No t Available amoxicillin 875 mg-potassium clavulanate 125 mg tablet TAKE 1 TABLET BY MOUTH TWICE A DAY FOR 7 DAYS active Not Available Not Available No t Available ketorolac 30 mg/mL injection solution Inject 15 mg. 2023 active Not Available Not Available Not Avai lable Vitals Date Recorded Respiratory rate Heart rate Body weight Body temperature Oxygen saturation Oxygen saturation in Arterial blood by Pulse oximetry Systolic And Diastolic Provider Name and Address Organization Details Last Updated DateTime 4 16 /min 60 /min 19869.7 2 g 98.4 [degF] 97 % 97 % 160/88 mm[Hg] Not Available [employer] 12:08:45 Date Recorded Body weight Heart rate Oxygen saturation Oxygen saturation in Arterial blood by Pulse oximetry Body height Respiratory rate Systolic And Diastolic Provider Name and Address Organization Details Last Updated DateTime 4 97087.6 8 g 66 /min 97 % 97 % 175.26 cm 16 /min 142/91 mm[Hg] Not Available [employer] 16:56:48 Social History None recorded. Functional Status None recorded. Mental Status None recorded. Family History Nothing Reported. Medical History No medical history recorded. Past Encounters Encounter ID Performer Location Encounter Start Date Encounter Closed Date Diagnosis/Indication Diagnosis SNOMED-CT Code Diagnosis ICD10 Code Diagnosis Note [id number] Eric De Dios MD [facility] [address] [place] [phone] 10/13/2023 12:08:42 10/13/2023 20:35:12 Lumbar radiculopathy 653121356 M54.16 [id number] Vesta Frankel MD [facility] [address] [place] [phone] 10/19/2023 16:56:46 10/20/2023 09:15:08 Acute back pain with sciatica 223815888 M54.42 Health Concerns Section Related Observation LastModified by Organization Detai ls LastModified Time None Recorded Concern Status LastModified by Organization Details LastModified Time None Recorded Advance Directives Directive None Recorded Payers Insurance Date Sequence Insurance Name Policy Number Policy Mack Covered Member ID Mack Member ID Guarantor Name 10/19/2023 1 [facility] - DOS ON OR AFTER 2022 - MEDICARE ADVANTAGE [place] (MEDICARE REPLACEMENT/AD VANTAGE - PPO) Vasyl Mari [id number] Vasyl Mari Notes Date Note Type Note Provider Name and Address Organization Details Recorded Time 10/13/2023 text/html This was a supervised home visit with blood bank attendant Roderick Rodriguez. [facility] Nurse Triage Notes (Nichole Kennedy): Chief Complaints: Pain PMH: Hypertension, Cancer Allergies: Unknown Pain Assessment: Level 9 out of 10 Comments: Iranian speaking member calling to request visit for sciatic pain. Patient states he missed a step going down the stairs last . States he started running to avoid falling. Did not fall but had an exacerbation of pain since that incident. Went to ER last for evaluation. Patient has been taking gabapentin and applying Lidocaine patches with no improvement. .................. .................. .................. .................. .................. .................. .................. ............... Stencil Printer Note From Roderick Rodriguez: Pt co sciatica pain left side going down left leg x3 days. Pt using gabapetin with no relief. Pt waiting for referral to PTherapy. Pt denies urinary symptoms , abdominal pain, confusion, cp sob NVD. Baseline vitals assessed. Negative cva tenderness or abdominal tenderness. Afebrile. C contacted and 30mg toradol IM. Pt advised to follow up with pcp for referral. Pt education on signs indicating the ER. .................. .................. .................. .................. .................. .................. .................. ............... Disposition: Gurdeep Eric De Dios MD [address] [facility],[address], [place], [address], [place] - [employer] 10/13/2023 12:33:01 10/19/2023 text/html [facility] Nurse Triage Notes (Damaris Servin): Reason For Request: Iranian speaking member calling to request visit for sciatic pain. Patient states he missed a step going down the stairs last . States he started running to avoid falling. Did not fall but had an exacerbation of pain since that incident. Went to ER last for evaluation. Patient has been taking gabapentin and applying Lidocaine patches with no improvement [facility] on 10/13/23 for above, requesting revisit Chief Complaints: Pain PMH: Hypertension, Cancer Allergies: No Known Comments: Referral taken via [id number]. Member was seen by Odalys 10/12 and given toradol with good effect. Member with left sided exacerbated sciatic pain. Member who had a near fall about 1.5 weeks ago and aggravated his sciatica. Member was given a 5 day course of Prednisone from his PCP, as well as tylenol and lidoderm patches. Member has since finished the Prednisone. Member still in pain and having difficulty standing. Member denies any numbness or tingling to his legs, no loss of B/B. Member wishes to be evaluated for pain control. .................. .................. .................. .................. .................. .................. .................. ............... Stencil Printer Note From José Miguel Bee: [employer] visit for male patient with sciatic pain. Pt presents conscious and alert. Pt Iranian speaking so conference interpreter was utilized. Pt reports onset of sciatic pain about 2 weeks ago. Pt was treated with tylenol and prednisone without much improvement. Pt had insted visit 1 week ago and was given toradol which gave him relief. V/S taken and WNL. Consulted with [facility] Dr. Frankel who ordered 15 mg IM toradol. Pt instructed to follow up with PCP for longer term pain management as well as possible physical therapy. Patient education provided. .................. .................. .................. .................. .................. .................. .................. ............... Disposition: Fulfilled Vesta Frankel MD [address] [facility],[address], [place], [phone], [facility] [employer] 10/19/2023 20:26:17
== END 2024-11-01 11:45 | disposition home or self-care (01) ==
PROVIDERS: PCP Family Medicine; Visit Provider Urology
DX: R68.82 Decreased libido (principal); N20.0 Calculus of kidney; Z13.9 Encounter for screening, unspecified
CPT/HCPCS: 99213; G2211

== ENCOUNTER → 2024-11-01 10:39 | Outpatient (BNVA) | payer MEDICARE, SELFPAY | PROVIDERS: PCP Family Medicine; Visit Provider Urology | DX: R68.82 Decreased libido (principal); N20.0 Calculus of kidney | CPT/HCPCS: 81003; 99212 ==

== ENCOUNTER 2024-12-17 11:27 | Outpatient (AMB) | payer MEDICARE, SELFPAY ==
--- NOTE | 2024-12-17 11:33 | A.OFFVIS_ITS ---
Vital Signs 12/17/24 11:33 Height 5 ft 9 in Intake Visit Reasons: 6M Component Overhaul Operator Required: Yes Component Overhaul Operator Name: #[id number] Allergies vitamin E (d-alpha tocopherol) Allergy (Verified 12/17/24 11:37) Itching Medication List - Last Reconciled 12/17/24 by Analy Max CNP ammonium lactate 12% 1 appl topical NEEDED PRN cetirizine 1 tab PO DAILY PRN cholecalciferol (vitamin D3) 25 mcg PO DAILY lidocaine 4% 1 patch topical DAILY PRN lidocaine 5% 1 patch topically; melatonin 6 mg PO BEDTIME metoprolol succinate ER 100 mg PO DAILY multivitamin (Daily Multi-Vitamin tablet) 1 tab PO DAILY nifedipine ER 30 mg PO DAILY omeprazole 20 mg PO DAILY prednisone 10 mg PO DIRECTED spironolactone 25 mg PO DAILY HPI Comments Details: 69-year-old man with HTN, MVD, MCI, and headache.? He was doing okay. Memory was stable. He stopped taking amitriptyline a few months ago and headaches were okay. He was no longer getting pain or burning sensation to side of head. He stopped amitriptyline as he thought medication was for sleep and sleep was okay with melatonin. Mood was okay. [facility] Medical History (Updated 12/17/24 @ 11:36 by Analy Max CNP) Tension headache Insomnia Cerebral microvascular disease MCI (mild cognitive impairment) Bifascicular block Hypertension Lymphoma Surgical History No pertinent past surgical history Family History Mother Recurrent strokes Father Heart disease History of throat cancer Social History Household Members: Spouse Housing: Apartment Do you presently have visiting nurse or other home services: No Alcohol intake: unknown Patient Tobacco Use Status: Never used Tobacco service: No Current occupational status: employed Review of Systems Const Denies chills, Denies daytime sleepiness, Denies difficulty sleeping, Denies fatigue, Denies fever(s), Denies frequent falls, Reports headache(s), Denies increased appetite, Denies poor appetite, Denies snoring, Denies weakness, Denies weight gain and Denies weight loss Eyes Denies loss of vision ENT Denies vertigo, Denies dizziness and Reports headache(s) Card Denies chest pain at rest, Denies chest pain with activity, Denies syncope, Denies leg edema and Denies palpitations Resp Denies snoring GI Denies constipation, Denies heartburn, Denies diarrhea and Denies nausea Denies urinary frequency, Denies urinary incontinence and Denies urinary urgency Musc Denies abnormal gait, Denies numbness and Denies tingling Skin/Breast Denies dry skin and Denies rash Neuro Denies abnormal gait, Denies vertigo, Denies dizziness, Denies syncope, Denies frequent falls, Reports headache(s), Denies lack of coordination, Denies loss of vision, Denies memory loss, Denies numbness, Denies restless legs, Denies seizure-like activity, Denies tingling, Denies paresthesias, Denies tremor(s) and Denies weakness Psych Denies anxiety, Denies depression, Denies auditory hallucinations, Denies memory loss, Denies visual hallucinations and Denies suicidal ideation Endo Denies fatigue and Denies palpitations Physical Exam Const Other: General Appearance:? normal, in no acute distress. Skin:? no rashes, no significant birthmarks. Heart:? S1, S2 normal, no murmurs. Lungs:? clear anteriorly and posteriorly. Extremities:? no edema. Psych:? alert, oriented, cognitive function intact, cooperative with exam. Neuro Other: Mental Status:?Alert and awake with normal spontaneity of speech fluency comprehension and affect.? There was no obvious sign of confusion or fogginess.? He was answering questions appropriately. Cranial Nerves:?Pupils are equal, round and reactive to light. External occular muscles are intact. Visual rodney are full. Face is symmetrical. Facial sensations are normal. Tongue is midline. Palate elevates symmetrically. Shoulder shrugging is normal. Hearing to bedside conversation is normal. Sensory Exam:?....? Coordination:?No ataxia,?no titubation.? Gait Exam: Within normal limits. Extrapyramidal System:?No tremor, rigidity with normal facial expressions.? Pronator Drift:?Not present.? Involuntary Movements:?No tremors seen.? Speech:?Normal.? Results Reviewed Results Reviewed: [place] [facility] [place]: Mild MVD Assessment & Plan Assessment & Plan (1) Tension headache: Code(s): G44.209 - Tension-type headache, unspecified, not intractable Category: Medical Plan: No significant headaches at this time. May consider restarting amitriptyline in the future if needed. (2) MCI (mild cognitive impairment): Code(s): G31.84 - Mild cognitive impairment of uncertain or unknown etiology Category: Medical Plan: Stay physically and socially active. (3) Cerebral microvascular disease: Code(s): I67.89 - Other cerebrovascular disease Category: Medical Plan: Control blood pressure. (4) Insomnia: Code(s): G47.00 - Insomnia, unspecified Category: Medical Qualifiers: Insomnia type: unspecified Qualified Code(s): G47.00 - Insomnia, unspecified Plan: Sleep was okay with melatonin. Plan Meds tried: Trazodone, amitriptyline (did not like how he felt with dose >10mg) Coding Level of Care Code Est Pt Level 4 (94850) Diagnoses Tension headache G44.209 MCI (mild cognitive impairment) G31.84 Cerebral microvascular disease I67.89 Insomnia, unspecified type G47.00 Insomnia type: unspecified
--- OUTSIDE RECORDS SUMMARY | 2024-12-17 12:58 | XMS_ITS | Encounter Summary ---
Author Organization [facility] Address [address] [place] [address] Phone Care Team Providers Care Auto Technician Name Role Phone Julio Castañeda MD Primary Care Provider Unav ailable Reason for Visit * Reason Onset Date Comments Losartan RX 02/18/2021 Encounter Details Date Type Department Care Team (Late st Contact Info) Description 02/18/2021 Telephone [facility] [address] [place] [address] Wanda Carnes Social History Tobacco [...] Wanda Carnes - 02/18/2021 3:28 PM EDT [facility] pharmacy called requesting a new prescription for pt's Losartan reflecting that he takes 75 mg a day. 50mg in the morning and 25mg at night. documented in this encounter Plan of Treatment Upcoming Encounters Date Type Department Care Team (Late st Contact Info) Description 09/02/2025 1:30 PM EDT Office Visit [facility] [address] [phone] Arturo Ruiz MD [address] [phone] documented as of this encounter Visit Diagnoses Not on filedocumented in this encounter Care Teams Auto Technician Relationship Specialty Start Date End Date Julio Castañeda MD [address] [place] [address] PCP - General Internal Medicine 03/09/21 09/02/24 documented as of this encounter
--- OUTSIDE RECORDS SUMMARY | 2024-12-17 12:58 | XMS_ITS | Encounter Summary ---
Author Organization [employer] Address [address] [place] [address] [address] [place] [address] Care Team Providers Care Oncology Specialist Name Role Phone Fish Brown PharmD Unavailable [phone] Jaylin Santiago DO Primary Care Provider [phone] Name, Star HAYES Primary Care Provider [phone] Reason for Visit * Reason Onset Date Comments Med Refill 09/09/2024 Encounter Details Date Type Department Care Team (Late st Contact Info) Description 09/09/2024 Refill [facility] MED[facility]INE [address] [place] [address] Jaylin Santiago DO [address] [place], [place] [phone] Viral upper respiratory tract infection Social History [...] Description 12/27/2024 10:45 AM EDT Office Visit [facility] MED[facility]INE [address] [place] [phone] Name, MD Star [address] [place] [phone] documented as of this encounter Goals Goal Patient Goal Type Associated Problems Recent Progress Patient-Stated? Author Blood Pressure < 140/90 Blood Pressure 140/80(2024 10:26 AM EDT) No Fish Brown, PharmMitchel HDL [...] documented as of this encounter Care Teams Oncology Specialist Relationship Specialty Start Date End Date Jaylin Santiago DO [address] [place], [place] [phone] PCP - General Family Medicine 11/29/23 10/01/24 Star Contreras MD [address] [place] [phone] PCP - General Internal Medicine 10/02/24 Fish Brown, JossueD [address] [place] [address] [phone] Pharmacist Internal Medicine 07/07/23 documented as of this encounter
--- OUTSIDE RECORDS SUMMARY | 2024-12-17 12:58 | XMS_ITS | Patient Health Record ---
Author Organization [facility] Address [address] [place] [address] Care Team Providers Care Finance Assistant Name Role Phone Maddy King MD, Julio [...] hrs Active Lotrisone 1-0.05 % 1 application Museum Registrar ally Twice a day Active Benadryl Allergy [...] Problem Status W/U Status Risk Notes Problem [id number] Colon cancer screening (Z12.11) Active confirmed Problem [id number] long term (current) use of non-steroidal anti-inflammato marleen (NSAID) (Z79.1) Active confirmed Plan Of Treatment Future Test Test Name Order Date COLONOSCOPY 04/12/2019 Insurance Providers Payer Name Payer Address Payer Phone Subscriber Number Group Number Insured Name Patient Relationship to Insured Coverage Start Date Coverage End Date [facility] [address] [place] [address] [id number] CONCHIS VAZQUEZ Self - patient is the insured Medical (General) History Medical History History ICD Code hypertension depression lumbar radiculopathy right bundle-branch block PPD positive chronic kidney disease lymphoma gastroesophageal reflux disease Surgical History Surgery Date(Month/Year) gallbladder tumor removed and biopsy
== END 2024-12-17 11:46 | disposition home or self-care (01) ==
LOC: HO.HSM 11:27
PROVIDERS: PCP Family Medicine; Referring Provider Internal Medicine; Visit Provider Registered Nurse
DX: G44.209 Tension-type headache, unspecified, not intractable (principal); G31.84 Mild cognitive impairment of uncertain or unknown etiology; I67.89 Other cerebrovascular disease; G47.00 Insomnia, unspecified
CPT/HCPCS: 99214

== ENCOUNTER → 2024-12-17 11:27 | Outpatient (BNVA) | payer MEDICARE, SELFPAY | PROVIDERS: PCP Family Medicine; Referring Provider Internal Medicine; Visit Provider Registered Nurse | DX: G31.84 Mild cognitive impairment of uncertain or unknown etiology (principal); G44.209 Tension-type headache, unspecified, not intractable; G47.00 Insomnia, unspecified; I67.89 Other cerebrovascular disease | CPT/HCPCS: 99212 ==

== ENCOUNTER 2025-01-20 15:54 | Emergency (ER) | payer MEDICARE, SELFPAY ==
--- NOTE | 2025-01-20 16:19 | ED_ITS ---
HPI - Back Pain/Injury General Chief Complaint: Back Pain/Injury Stated Complaint: back pain Time Seen by Provider: 01/20/25 16:20 Source: patient and cleaning manager Mode of arrival: ambulatory Limitations: language barrier History of Present Illness ED Provider: Radha Corona APRN HPI Narrative: 69yo male with history of HTN, chronic back pain here with complaints of acute on chronic left sided back pain since yesterday after lifting a heavy object. Pain radiates down the left leg. No associated weakness, numbness, tingling in the LE. NO saddle anesthesia. No bowel or bladder incontinence. No fevers, chills. Has been taking baclofen, using Lidoderm patches and [id number] ibuprofen at home with continued pain Related Data Home Medications ?Medication ?Instructions ?Recorded ?Confirmed omeprazole 20 mg capsule,delayed 20 mg PO DAILY 05/04/24 release metoprolol succinate 100 mg 100 mg PO DAILY 03/31/22 0 05/04/24 tablet,extended release 24 hr nifedipine 30 mg tablet,extended 30 mg PO DAILY 05/04/24 release spironolactone 25 mg tablet 25 mg PO DAILY 03/31/22 ammonium lactate 12 % topical cream 1 appl topical NEEDED PRN Dry 06/30/22 05/04/24 Skin cetirizine 10 mg tablet 1 tab PO DAILY PRN itch 0312/1505/04/24 cholecalciferol (vitamin D3) 25 25 mcg PO DAILY 05/04/24 mcg (1,000 unit) tablet multivitamin (Daily Multi-Vitamin 1 tab PO DAILY 06/3005/04/24 tablet) melatonin 3 mg tablet 6 mg PO BEDTIME 12/17/24 Previous Rx's ?Medication ?Instructions ?Recorded lidocaine 5 % topical patch 1 patch topical .COMPLEX p ain #30 05/04/24 ea lidocaine 4 % topical patch 1 patch topical DAILY PRN pain #30 09/19/24 ea prednisone 10 mg tablet 10 mg PO DIRECTED #41 tab s 09/19/24 prednisone 20 mg tablet 40 mg (2 x 20 mg) PO DAILY # 10 tabs 01/20/25 Allergies Allergy/AdvReac Type Severity Reaction Status Date / Time vitamin E (d-alpha Allergy Itching Verified 01/20/25 16:21 tocopherol) Review of Systems Review of Systems: Yes all other systems are reviewed and are negative Constitutional: Constitutional: Reports no additional constitutional complaints, Denies body ache(s), Denies chills, Denies fever(s), Denies headache(s) and Denies weakness Eyes: Eyes: Reports no additional eye complaints and Denies change in vision ENT: Reports system reviewed and no additional complaints, except as documented, Denies dizziness, Denies headache(s), Denies nasal congestion, Denies nasal discharge and Denies neck pain Cardiovascular: Cardiovascular: Reports no additional cardiovascular complaints, Denies chest pain, Denies leg edema and Denies dyspnea Respiratory: Respiratory: Reports no additional respiratory complaints, Denies cough and Denies dyspnea Gastrointestinal: Gastrointestinal: Reports no additional gastrointestinal complaints, Denies abdominal pain, Denies diarrhea, Denies nausea and Denies vomiting Genitourinary: Genitourinary: Denies urinary incontinence Musculoskeletal: Musculoskeletal: Reports no additional musculoskeletal complaints, Reports back pain, Denies arthralgias, Denies joint swelling, Denies neck pain, Denies numbness, Reports radiating pain into limb and Denies tingling Integumentary/Breasts: Skin/Breast: Reports system reviewed and no additional complaints, except as docu and Denies rash Neurologic: Reports system reviewed and no additional complaints, except as documented, Denies Abnormal speech present, Denies dizziness, Denies headache(s), Denies numbness, Denies tingling and Denies weakness PMFSH Past Medical History Attestation statement: The following information was validated with the patient. Source: old records reviewed and nursing notes reviewed Medical History Tension headache Insomnia Cerebral microvascular disease MCI (mild cognitive impairment) Bifascicular block Hypertension Lymphoma Surgical History No pertinent past surgical history Family History Family History Mother Recurrent strokes Father Heart disease History of throat cancer Social History Social History Household Members: Spouse Housing: Apartment Do you presently have visiting nurse or other home services: No Alcohol intake: unknown Patient Tobacco Use Status: Never used Tobacco Do you have a plan to hurt others: No Plan service: No Current occupational status: employed Physical Exam Vital Signs: Vital Signs: Last Vital Signs Temp 97.1 F 01/20/25 16:20 Pulse 67 01/20/25 16:20 Resp 17 01/20/25 16:20 BP 170/92 H 01/20/25 16:20 Pulse Ox 98 01/20/25 16:20 O2 Del Method Room Air 01/20/25 16:20 BMI result Body Mass Index 25.3 Const: General: cooperative, healthy appearing, comfortable and no acute distress Orientation/consciousness: patient oriented x3 Limitations: no limitations HEENT: Head: Yes normal to inspection Ears: hearing grossly normal bilaterally General nose exam: Normal external nose present Face and sinus: Yes normal facial exam Mouth: Normal oral and palatal mucosa present Throat: Yes posterior oropharynx normal Eyes: General: appearance normal, both eyes and all related structures Pupils: Equal, round and reactive pupils present Neck: Neck: Yes normal visual inspection Chest: Chest palpation & inspection: normal inspection of the chest Resp: Effort & Inspection: normal respiratory effort Auscultation: clear to auscultation bilaterally Cardio: Rate: regular rate Rhythm: regular rhythm Peripheral pulses: Peripheral pulses 2+ throughout GI: Inspection: Yes normal to inspection Palpation (GI): Soft to palpation and nontender Auscultation: normal bowel sounds Back/Spine/Pelvis: Other: Tenderness on palpation to L SI joint and buttocks No midline tenderness, step-offs or deformity Thoracic/Lumbar Spine: thoracic and lumbar spine normal to inspection Skin: General skin exam: no rashes or lesions noted Neuro: General: patient oriented x3, moves all extremities, no focal motor deficits and normal sensation to monofilament Cranial nerves: Yes CN's II-XII intact bilaterally, Yes Equal, round and reactive pupils present, Yes Bilaterally intact EOM present, Yes Nystagmus not present, Yes Normal facial strength present and Yes Midline tongue present Cognition (Neuro): normal cognition Speech: No Abnormal speech present Gait exam (Neuro): Normal gait present Motor exam (neuro): 5/5 motor strength present throughout Sensory Exam: Normal double simultaneous stimulation for sensation Deep tendon reflexes (DTR's): Right patellar reflex intensity grade: 2+ and Left patellar reflex intensity grade: 2+ Extrem: General: Yes normal to inspection Medical Decision Making Medical Decision Making [facility] Narrative: 69yo male with history of HTN, chronic back pain here with complaints of acute on chronic left sided back pain since yesterday after lifting a heavy object. P ain radiates down the left leg. No associated weakness, numbness, tingling in the LE. NO saddle anesthesia. No bowel or bladder incontinence. No fevers, chills. Has been taking baclofen, using Lidoderm patches and [id number] ibuprofen at home with continued pain Pain on palpation to the left SI and buttocks. Normal neuro exam with no focal deficits. No red flag symptoms. Likely lumbar radiculopathy. Will send patient home with prednisone and have him continue his home medications Patient did receive 30 mg of IM Toradol he was in the emergency room. Reviewed worrisome signs and symptoms when to return to the emergency room. Comfortable plan for discharge home. Differential Diagnosis Differential Diagnoses: The differential diagnosis associated with the presentation includes Lumbar radiculopathy, lumbar strain, herniated disc Low suspicion for epidural abscess with no risk factors of same, no neurological deficits or red flag symptoms Low suspicion for ACS with no reports of chest pain, shortness of breath, diaphoresis or vomiting Low suspicion for pyelonephritis or renal colic with no CVA tenderness, urinary symptoms reported Low suspicion for malignancy with no red flag symptoms, more acute onset Low suspicion for cord compression, cauda equina with normal neurological exam and no red flag symptoms Admission/Observation Consideration of admission/observation: Escalation of care including admission/observation considered Low suspicion for above requiring additional imaging Tests considered The following testing was considered but not selected: Low suspicion for above requiring additional imaging Prescription Management I considered prescription management with: Pain Medication Discharge Plan Discharge Clinical Impression: Lumbar radiculopathy Patient Disposition: Home, Self-Care Instructions: Lumbar Radiculopathy (ED) Additional Instructions: Follow-up with [facility] spine and sport on as scheduled Continue your baclofen, lidoderm patches, tylenol at home. Heat or ice Gentle stretching Prescriptions: New prednisone 20 mg tablet 40 mg PO DAILY Qty: 10 0RF No Action cetirizine 10 mg tablet 1 tab PO DAILY PRN (Reason: itch) ammonium lactate 12 % cream 1 appl topical NEEDED PRN (Reason: Dry Skin) multivitamin [Daily Multi-Vitamin] Tablet 1 tab PO DAILY cholecalciferol (vitamin D3) 25 mcg (1,000 unit) Tablet 25 mcg PO DAILY lidocaine 4 % adhesive patch,medicated 1 patch topical DAILY PRN (Reason: pain) Qty: 30 0RF prednisone 10 mg tablet 10 mg PO DIRECTED Qty: 41 0RF Rx Instructions: see taper instructions 60mg on day 1-5, 40mg on day 6, 30mg on day 7, 20mg on day 8, 10mg on day 9, 5mg on day 10 omeprazole 20 mg capsule,delayed release(DR/EC) 20 mg PO DAILY metoprolol succinate 100 mg tablet extended release 24 hr 100 mg PO DAILY nifedipine 30 mg tablet extended release 30 mg PO DAILY spironolactone 25 mg tablet 25 mg PO DAILY lidocaine 5 % adhesive patch,medicated 1 patch topical .COMPLEX Qty: 30 0RF Rx Instructions: 1 patch topically; melatonin 3 mg tablet 6 mg PO BEDTIME Referrals: Physician,Unknown J [Primary Care Provider, Medical] Print Language: Mauritanian
[2025-01-20 16:20] VITALS: BP 170/92; PULSE 67; RESP 17; TEMP 36.2; O2SAT 98; BMI 25.3
[2025-01-20 16:33] VITALS: BP 170/92; PULSE 67; RESP 17; TEMP 36.2; O2SAT 98
--- NOTE | 2025-01-20 16:33 | PC.NURSE ---
pt medicated prior to d/c.
--- OUTSIDE RECORDS SUMMARY | 2025-01-20 16:38 | XMS_ITS | Encounter Summary ---
Author Organization [employer] Address [address] [facility] [address] [place] [address] Care Team Providers Care Installer Apprentice Name Role Phone Fish Brown PharmD Unavailable [phone] Jaylin Santiago DO Primary Care Provider [phone] Name, Star HAYES Primary Care Provider [phone] Reason for Visit * Reason Comments Med Refill Encounter Details Date Type Department Care Team ([facility] st Contact Info) Description 04/17/2024 Refill [facility] MED[facility]INE [address] [place], [place] [phone] Julio Crockett MD [address] [place], [place] [phone] Primary hypertension Social History Tobacco Use Types [...] Care Team (Late st Contact Info) Description 04/04/2025 9:15 AM EST Office Visit [facility] MEDICINE [address] [place] [phone] Name, MD Star [address] [place] [address] documented as of this encounter Goals Goal Patient Goal Type Associated Problems Recent Progress Patient-Stated? Author Blood Pressure < 140/90 Blood Pressure 140/92(2024 10:46 AM EDT) No Fish Brown PharmD HDL [...] documented as of this encounter Care Teams Installer Apprentice Relationship Specialty Start Date End Date Jaylin Santiago DO [address] [place] [phone] PCP - General Family Medicine 11/29/23 10/01/24 Star Contreras MD [address] [place], [place] [phone] PCP - General Internal Medicine 10/02/24 Fish Brown, JossueD [address] [place] [address] Pharmacist Internal Medicine 07/07/23 documented as of this encounter
--- OUTSIDE RECORDS SUMMARY | 2025-01-20 16:38 | XMS_ITS | Patient Health Record ---
Author Organization [facility] Address [address] [place] [address] Care Team Providers Care Hip Hop Artist Name Role Phone Maddy King MD, Julio [...] hrs Active Lotrisone 1-0.05 % 1 application Systems Developer ally Twice a day Active Benadryl Allergy [...] Problem Status W/U Status Risk Notes Problem [id number] Colon cancer screening (Z12.11) Active confirmed Problem [id number] [facility] (current) use of non-steroidal anti-inflammato marleen (NSAID) (Z79.1) Active confirmed Plan Of Treatment Future Test Test Name Order Date COLONOSCOPY 04/12/2019 Insurance Providers Payer Name Payer Address Payer Phone Subscriber Number Group Number Insured Name Patient Relationship to Insured Coverage Start Date Coverage End Date [facility] [address] [place] [address] [id number] CONCHIS VAZQUEZ Self - patient is the insured Medical (General) History Medical History History ICD Code hypertension depression lumbar radiculopathy right bundle-branch block PPD positive chronic kidney disease lymphoma gastroesophageal reflux disease Surgical History Surgery Date(Month/Year) gallbladder tumor removed and biopsy
--- OUTSIDE RECORDS SUMMARY | 2025-01-20 16:38 | XMS_ITS | Encounter Summary ---
Author Organization [employer] Address [address] [place] [address] 7[address] [place] [address] Care Team Providers Care Service Member Name Role Phone Fish Brown PharmD Unavailable [phone] Jaylin Santiago DO Primary Care Provider + [phone] Name, Star HAYES Primary Care Provider [phone] Reason for Visit * Reason Onset Date Comments Nurse Triage 09/19/2024 Encounter Details Date Type Department Care Team ([facility] st Contact Info) Description 09/19/2024 Telephone [facility] MEDICINE [address] [place] [address] Jaylin Santiago DO [address] [place], [place] [phone] Nurse Triage Social History Tobacco Use Types Packs/Day Years [...] encounter Miscellaneous Notes * Telephone Encounter - Raeann Cassidy RN - 09/19/2024 4:16 PM EDT Triage call with [facility] jet engine mechanic [place] [id number] Pt reports has been having a cough seen at last office visit 09/14/24. Pt reports the cough has caused some back pain due to muscles being used and inflamed from the cough. Pt reports bending over to pick something up x2 and it caused back pain and Pt then went to ED for evaluation and some help. Ptis calling for physical therapy referral at this time per advice of ED Doctor. Pt is advised to continue to follow advice from ED. ASK apt with DR. Ruiz 09/25/24 @ [id number]. Pt agrees with disposition and insurance is verified as active prior to booking. Protocol Used: Back Pain (Adult) Protocol-Based Disposition: See in Office or Video Visit within 3 Days Video visit not offered Positive Triage Question: * Moderate back pain (e.g., interferes with normal activities) and present > 3 days * All higher-acuity triage questions were negative Care Advice Discussed: * Reassurance and Education - Back Pain * Cold or Heat * Continue Activity * Pain Medicines * Reasons To Call Back - Fever occurs - Numbness or weakness occurs - Loss of control of your bladder or bowel - Severe pain not better after taking pain medicines - Pain begins to shoot into the leg - Pain lasts over 2 weeks - Pain becomes worse - You become worse * Telephone Encounter - Raeann Cassidy RN - 09/19/2024 4:16 PM EDT Requesting [place] [facility] [place]. thanks * Telephone Encounter - Charity Garza - 09/19/2024 3:36 PM EDT Patient calling to report ED visit on : Date: 09/19 [place] [facility] Seen for: Back Pain Symptomatic Yes *if yes message should go to Triage Patient advised will forward to team nurse for follow up [phone] bruneian fyi: Pt requesting referral for Physical Therapy. documented in this encounter Plan of Treatment Upcoming Encounters Date Type Department Care Team (Late st Contact Info) Description 04/04/2025 9:15 AM EST Office Visit [facility] MEDICINE [address] [place] [phone] Name, MD Star [address] [place] [address] documented as of this encounter Goals Goal [...] documented as of this encounter Care Teams Service Member Relationship Specialty Start Date End Date Jaylin Santiago DO [address] [place] [address] PCP - General Family Medicine 11/29/23 10/01/24 Name, MD Star [address] [place] [address] PCP - General Internal Medicine 10/02/24 Fish Brown PharmD [address] [place] [address] Pharmacist Internal Medicine 07/07/23 documented as of this encounter
--- OUTSIDE RECORDS SUMMARY | 2025-01-20 16:38 | XMS_ITS | Clinical Summary ---
Author Organization [facility] Address [address] [phone] Phone Care Team Providers Care Vacuum Forming Machine Operator Name Role Phone Unavailable Primary Care Provider Unavailabl e Allergies No known active allergies Medications Diclofenac Sodium 1 % gel APPLY 2 GRAMS BY TOPICAL ROUTE 3 TIMES EVERY DAY TO THE AFFECTED AREA(S) NEEDED FOR PAIN 09/23/2020 Active Blood Pressure Monitor misc USE TO CHECK BLOOD PRESSURE, SEATED IN CHAIR WITH FEET ON FLOOR 11/12/2020 Active albuterol HFA (PROVENTIL HFA;VENTOLIN HFA) 108 (90 Base) MCG/ACT inhaler 01/13/2021 Active desoximetasone (TOPICORT) 0.25 % cream 01/13/2021 Active baclofen (LIORESAL) 10 MG tablet Take 1 tablet by mouth 1 (one) time each day if needed 01/20/2021 Active [place] [facility]-3 Fatty Acids (FISH OIL OMEGA-3 PO) Take 500 mg by mouth 1 (one) time each day Active Cholecalciferol (Vitamin D3) 125 MCG (5000 UT) capsule Take 1 capsule by mouth 1 (one) time each day Active losartan (COZAAR) 100 MG tablet TAKE 1 TABLET BY MOUTH 1 TIME EACH DAY. 90 tablet 3 08/30/2022 Active cyanocobalamin (VITAMIN B-12) 100 MCG tablet Take 50 mcg by mouth 1 (one) time each day Active spironolactone (ALDACTONE) 25 MG tablet TAKE 1 TABLET BY MOUTH EVERY DAY 90 tablet 7 04/18/2024 Active omeprazole (PriLOSEC) [address] Charles ons:Chronic kidney disease stage 2,Hypertensive renal disease,Pure hypercholestero lemia, not otherwise specified,Hypok alemia,Stage 3a chronic kidney disease (HCC) TAKE 1 CAPSULE (20 MG TOTAL) BY MOUTH DAILY DO NOT CRUSH OR CHEW 90 capsule 7 06/06/2024 Active NIFEdipine XL (PROCARDIA XL) 60 MG 24 hr tablet Take 1 tablet (60 mg total) by mouth 1 (one) time each day Do not crush, chew, or split. 90 tablet 3 09/03/2024 09/04/19 26 Active metoprolol succinate XL (TOPROL-XL) 100 MG 24 hr tablet TAKE 1 TABLET (100 MG TOTAL) BY MOUTH 1 (ONE) TIME EACH DAY DO NOT CRUSH OR CHEW 90 tablet 3 09/20/2024 09/21/19 26 Active Active Problems Problem Noted Date Diagnosed Date [...] ing without diagnosis of hypertension 09/12/2020 02/11/2021 Immunizations Immunization Administration Dates Next Due Influenza [...] Office Visit [facility] [address] [phone] Arturo Ruiz MD [address] [phone] Health Maintenance Due Date Last Done Comments Colorectal Cancer Screening: Annual FOBT 2006 Colorectal Cancer Screening: Colonoscopy 2006 Colorectal Cancer Screening: Sigmoidoscopy 2006 Influenza Vaccine (#1) 2024 4, 02/15/2022, 01/30/2021, Additional history exists Hepatitis B Vaccine Aged Out 01/23/2015, 11/14/2014, 10/21/2009, Additional history exists No longer eligible based on patient's age to complete this topic Pneumococcal Vaccine: 50+ Years Completed 06/10/2023, 11/14/2014, 06/18/2013, Additional history exists Pneumococcal Vaccine: Peds (0 to 5 Years) and At-Risk Patients (6 to 49 Years) Discontinued 06/10/2023, 11/14/2014, 06/18/2013, Additional history exists Insurance Medicaid [place] [employer] MCR Adv PPO ([id number])
--- OUTSIDE RECORDS SUMMARY | 2025-01-20 16:38 | XMS_ITS | Clinical Summary ---
Author Organization [employer] Address [address] [place] [address] [address] [place] [address] Care Team Providers Care Fiscal Agent Name Role Phone Fish Brown PharmD Unavailable [phone] Name, Star HAYES Primary Care Provider [phone] Allergies Active Allergy Reactions Criticality Noted Date [...] BY MOUTH EVERY DAY 90 tablet 3 024 Active spironolactone (Aldactone) 25 MG tablet Take 25 mg by mouth Once per day. 023 Active betamethasone valerate (Valisone) 0.1 % cream Apply topically if needed in the morning and at bedtime (dryness). 45 g 2 024 Active testosterone (Androgel) 50 MG/5GM (1%) gel APPLY 1 PACKET TRANSDERMALLY DAILY FOR 30 DAYS. APPLY TO SHOULDER AND RUB IN UNTIL DRY Active diphenhydrAMINE (BENADryl) 50 MG tablet Take 1 tablet (50 mg) by mouth every 8 (eight) hours if needed for itching or allergies for up to 7 days. 21 tablet 024 Active Diclofenac Sodium 1 % gel Apply 2 g topically if needed in the morning, at noon, in the evening, and at bedtime (pain). 150 g 3 024 Active fluticasone (Flonase) 50 MCG/ACT nasal sprayIndication s:Viral upper respiratory tract infection Administer 2 sprays into each nostril Once per day. Shake gently. Before first use, prime pump. After use, clean tip and replace cap. 48 mL 3 024 Active cetirizine (ZyrTEC) 5 MG tabletIndicatio ns:Itching of ear Take 1 tablet (5 mg) by mouth Once per day. 90 tablet 1 025 2025 Active albuterol (Ventolin HFA) 108 (90 Base) MCG/ACT inhaler INHALE 2 PUFFS EVERY 4 HOURS IF NEEDED FOR WHEEZING 18 g 1 025 Active albuterol 108 (90 Base) MCG/ACT inhalerIndicati ons:Wheezing INHALE 2 PUFFS POR VIA ORAL EVERY 4 HOURS IF NEEDED FOR WHEEZING. 18 g 1 025 Active hydrocortisone 2.5 % creamIndication s:Ear itch Apply topically 2 times daily. 20 g 025 Active baclofen (Lioresal) 10 MG tablet TAKE 1 TABLET BY MOUTH IN THE MORNING, AT NOON AND AT BEDTIME NEEDED FOR MUSCLE SPASMS 90 tablet 2 025 Active amitriptyline (Elavil) 10 MG tablet Take 1 tablet (10 mg) by mouth at bedtime. 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 seen recently 03/31/2022 Chronic low back pain 12/03/2017 Assessment & Plan (09/25/2024 11:53 AM EDT): I will refer patient to physical therapy Follow-up with pain medicine if needed Assessment & Plan (01/27/2023 10:24 AM EDT): Pt is here for a follow up Low back pain stable, Previous work up included MRI of his LS spine on 06/19/2014 showed: A left lat disc protrusion at L4-L5 resulting in mass effect upon the left L4 nerve root in the neural foramen. Evaluated at [facility] on 06/26/2014 started on Gabapentin and [...] root in the neural foramen. Evaluated at [facility] on 06/26/2014 started on Gabapentin and [...] autologous stem cell transplantation in 03/[address] [facility]. He was last seen at [facility] 03/30/2016. pt found to be well engrafted, CAT scan showed full remission. They recommended follow up with us q 6 months with CBC, CMP and LDH and PRN with them if recurrent symptoms. 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. He was last seen at [facility] 03/30/2016. pt found to be well engrafted, CAT scan showed full remission. They recommended follow up with us q 6 months with CBC, CMP and LDH and PRN with them if recurrent symptoms. He also remains under the care at [facility]. According to oncologist last note [...] mg 1 tab daily. (Prescribed by his Transportation Agent)), Metoprolol XL 100 mg po daily ( Prescribed by Wallpaper [employer]er ) and Nifedipine 30 mg po daily , he is off Amlodipine due to leg edema. Most recent Lytes, Bun and Cr. done on were wnl. Pt stopped Losartan because he thought it was a Vitamin Plan: continue regimen as per Transportation Agent Assessment & Plan (05/16/2023 3:35 PM EST): [...] mg 1 tab daily. (Prescribed by his Transportation Agent)), Metoprolol XL 100 mg po daily ( Prescribed by [employer] ) and Mlodipine 30 mg po daily , he is off Amlodipine due to leg edema. Most recent Lytes, Bun and Cr. done on 07/21/2022 were wnl. Plan: continue regimen as per Transportation Agent Assessment & Plan (09/27/2022 11:15 AM EDT): [...] mg 1 tab daily. (Prescribed by his Transportation Agent)), Metoprolol XL 100 mg po daily ( Prescribed by [employer]er ) he is off Amlodipine due to leg edema. Most recent Lytes, Bun and Cr. done on 07/21/2022 were wnl. Plan: continue regimen as per Transportation Agent Assessment & Plan (07/21/2022 10:33 AM EDT): Fairly well controlled. Continue multiple medications and FU with PCP in 3 months FU with medical technologist prn once per year Assessment & Plan (04/15/2022 1:11 PM EST): Pt is here for a f/u BP stable He is on Losartan 100 in AM and Spironolactone 25 mg 1 tab daily. (Prescribed by his Transportation Agent)), Metoprolol XL 100 mg po daily ( Prescribed by Wallpaper [employer]er ) he is off Amlodipine due to leg edema. Most recent Lytes, Bun and Cr. done on 07/22/2021 were wnl. Will repeat Plan: continue regimen as per Transportation Agent Benign prostatic hyperplasia 04/25/1959 Depressive disorder 04/25/1959 [...] Plan (07/14/2023 11:01 AM EDT): Will call [facility] to expedite his visit as he [...] 11/17/2016 he was seen by ENT at [facility] who did not find any abnormality [...] 11/17/2016 he was seen by ENT at [facility] who did not find any abnormality [...] 01/03/2009, repeat 07/13/2019 Normal Follicular non-Hodgkin's lymphoma (CMS/HCC) 07/22/2015 04/15/2022 Acute cholecystitis 10/19/2012 12/09/19 24 Nodular lymphoma, unspecifie d site, extranodal and solid organ sites 06/01/2012 024 Overview (01/23/2023): Replace inactive dx Encounters Date Type Department Care Team Description 12/30/[address] [facility] MEDICINE [address] [place] [address] Jaylin Santiago DO 12/27/2024 10:45 AM EDT Office Visit [facility] MEDICINE [address] [place] [phone] Star Contreras MD Chronic bilateral low back pain with left-sided sciatica (Primary Dx) 12/27/2024 Travel 12/26/2024 Travel 12/26/2024 Telephone [facility] [address] [place], [place] 13 Star Contreras MD Chart Prep 12/25/2024 Orders Only [facility] MEDICINE [address] [place] [address] [phone] Felisa Marley MD Chronic left-sided low back pain with left-sided sciatica (Primary Dx) 12/20/[address] [facility] MEDICINE [address] [place] [phone] Star Contreras MD Referral 12/19/2024 Patient Outreach [facility] [address] [place], [place] [phone] tSar Contreras MD Pre-visit Planning (SDOH negative, Tobacco screening negative. ) 12/07/2024 10:30 AM EDT Office Visit [facility] MEDICINE [address] [place] [address] [phone] Stephen Zamudio MD Ear itch (Primary Dx); Dermatofibroma 12/07/2024 Travel 11/03/[address] [facility] WALK-IN CENTER [address] [place], [place] [phone] Sadie Thapa MD Wheezing from Last 3 Months Immunizations Immunization Administration [...] housing situation today? I have rashaun baer 12/19/[address] you li ve. Do you have problems with any of the following? None of the above 12/19/2024 Food Insecurity Answer Date Recorded Within the past 12 months, y ou worried that your food would run out before you got money to buy more: Never True 12/19/2024 Within the past 12 months,th e food you bought just didn't last and you didn't have enough money to get more: Never True Transportation Answer Date Recorded In the past 12 months, has l ack of transportation kept you from medical appts, meetings, work or from getting things needed for daily living? No 12/19/2024 Utilities Answer Date Recorded In the past 12 months, has t he electric, gas, oil or water company threatened to shut off services in your home? No 12/19/2024 Depression Answer Date Recorded Patient Health Questionnaire-2 Score 0 04/09/2024 Internet Access Answer Date Recorded Internet Access Q1 Yes 12/19/2024 Internet Access Q2 Not on file 12/19/2024 Sex and Gender Information Value Date Recorded Sex Assigned at Male 02/22/2022 10:14 AM EDT Legal Sex Male 10:14 AM EDT Gender Identity Male 02/22/2022 10:14 AM EDT Sexual Orientation Straight 02/22/2022 10 :14 AM EDT Last Filed Vital Signs Vital Sign Reading Time Taken Comments Blood Pressure 140/92 12/27/2024 10:46 AM EDT Pulse 60 12/27/2024 10:46 AM EDT Temperature 37.1 C (98.7 F) 12/27/2024 10:46 AM EDT Respiratory Rate 16 12/27/2024 10:46 AM EDT Oxygen Saturation 97% 12/27/2024 10:46 AM EDT Inhaled Oxygen Concentration - - Weight 76.3 kg (168 lb 3.2 oz) 12/27/2024 10:46 AM EDT Height 175.3 cm (5' 9 ) 12/27/2024 10:46 AM EDT Body Mass Index 24.84 12/27/2024 10:46 AM EDT Plan of Treatment Upcoming Encounters Date Type Department Care Team (Late st Contact Info) Description 04/04/2025 9:15 AM EST Office Visit [facility] MEDICINE [address] [place] [phone] Name, MD Star [facility] [place] [address] Health Maintenance Due Date Last Done Comments CT Colonography 1957 FIT DNA/Cologuard 1957 FIT 1957 FOBT 1957 Sigmoidoscopy 1957 DTaP/Tdap/Td Vaccines (1 - Tdap) 11/27/2018 11/26/2018, 02/03/2016, 12/14/2005 COVID-19 Vaccine (3 - season) 2024 12/18/2020, 11/27/2020 Influenza Vaccine (#1) 2024 , 01/25/2023, 02/15/2022, Additional history exists Depression Screening 04/09/2025 04/09/2024, 04/09/20 24 SDOH Screening 12/19/2025 12/19/2024 Alcohol/Substance Use Screening 12/27/2025 12/27/2024 Tobacco Screening 12/27/2025 12/27/2024 Lipid Panel 11/28/2028 11/29/2023, 03/26, 07/22/2021, Additional [...] Completed 06/10/2023 Hepatitis C Screening Completed 11/29/2023 HIB Vaccines Aged Out No longer eligi [...] Procedure Name Priority Date/Time Associated Diagnosis Comments HEPATITIS C AB W/REFL TO HCV RNA, QN, PCR Routine 11/29/2023 9:30 AM EDT Essential hypertension Stage 2 chronic kidney disease Chronic bilateral low back pain with left-sided sciatica Scrotal pain Ear itching History of B-cell lymphoma BMI 24.0-24.9, adult LIPID PANEL, STANDARD Routine 11/29/2023 9:30 AM EDT Essential hypertension Stage 2 chronic kidney disease Chronic bilateral low back pain with left-sided sciatica Scrotal pain Ear itching History of B-cell lymphoma BMI 24.0-24.9, adult HM COLONOSCOPY Routine 10/05/2019 from Last 3 Months or Most Recently Relevant to Health Maintenance Results * Hepatitis C Antibody with Reflex to HCV, RNA, Quantitative, Real-Time PCR (11/29/2023 9:30 AM EDT) Hepatitis C Antibody Nonreactive Nonreactive [facility] Comment:Antibodies to HCV no t detected; does not exclude early acuteHCV infection. Blood Venous blood specimen / Unknown 11/29/2023 9:30 AM EDT 11/29/2023 11:19 AM EDT Jaylin Santiago DO LAB BLOOD ORDERABLES Final R esult Performing Organization Address [facility] Co de Phone Number [facility] [address] [place] [phone] [phone] * (ABNORMAL) Lipid Panel, Standard (11/29/2023 9:30 AM EDT) Triglycerides 80 <150 mg/dL [facility] Comment:Desirable Triglyceri de: less than 150 mg/dLBorderline High Triglyceride 150-199 mg/dLHigh Triglyceride: 200-499 mg/dLVery High Triglyceride: greater than or equal to 5OO mg/dL Cholesterol 167 <200 mg/dL [facility] Comment:Desirable Cholestero l: less than 200 mg/dLBorderline High Cholesterol: 200-239 mg/dLHigh Cholesterol: greater than 239 mg/dL LDL Cholesterol Calculated 107(H) <100 mg/dL [facility] Comment:Desirable LDL: less than 100 mg/dLNear Optimal/Above Optimal LDL: 110- 129 mg/dLBorderline High LDL: 130-159 mg/dLHigh LDL: 160-189 mg/dLVery High LDL: greater than or equal to 190 mg/dL HDL Cholesterol 44 >40 mg/dL [facility] Comment:Desirable HDL: great er than 40 mg/dL Note: This HDL assay may give artificially low results in patients with liver disease. Blood Venous blood specimen / Unknown 11/29/2023 9:30 AM EDT 11/29/2023 11:19 AM EDT Jaylin Santiago DO LAB BLOOD ORDERABLES Final R esult Performing Organization Address [facility]/ZIP Co de Phone Number [facility] [address] [place] [address] [phone] * Hm Colonoscopy (10/05/2019) Colonoscopy performed Historical Provider HEALTH MAINTENANCE Edited Result - Final from Last 3 Months or Most Recently Relevant to Health Maintenance [facility] [employer]IC[employer] REPLACEMENT Care Teams Fiscal Agent Relationship Specialty Start Date End Date Name, MD Star [address] [place] [address] PCP - General Internal Medicine 10/02/24 Fish Brown PharmD [address] [place] [address] Pharmacist Internal Medicine 07/07/23
--- OUTSIDE RECORDS SUMMARY | 2025-01-20 16:38 | XMS_ITS | Encounter Summary ---
Author Organization [employer] Address [address] [place] [address] [address] [place] [address] Care Team Providers Care Data Integration Developer Name Role Phone Fish Brown PharmD Unavailable [phone] Jaylin Santiago DO Primary Care Provider [phone] Name, Star HAYES Primary Care Provider [phone] Reason for Visit * Reason Onset Date Comments Med Refill 09/09/2024 Encounter Details Date Type Department Care Team (Late st Contact Info) Description 09/09/2024 Refill [facility] MEDICINE [address] [place] [address] Jaylin Santiago DO [address] [place], [place] [phone] Viral upper respiratory tract infection Social History [...] Description 04/04/2025 9:15 AM EST Office Visit [facility] MEDICINE [address] [place] [phone] Name, MD Star [address] [place] [phone] documented as of this encounter Goals Goal Patient Goal Type Associated Problems Recent Progress Patient-Stated? Author Blood Pressure < 140/90 Blood Pressure 140/92(2024 10:46 AM EDT) No Fish Brown, PharmMitchel HDL [...] documented as of this encounter Care Teams Data Integration Developer Relationship Specialty Start Date End Date Jaylin Santiago DO [address] [place], [place] [phone] PCP - General Family Medicine 11/29/23 10/01/24 Star Contreras MD [address] [place] [address] [phone] PCP - General Internal Medicine 10/02/24 Fish Brown, JossueD [address] [place] [address] [phone] Pharmacist Internal Medicine 07/07/23 documented as of this encounter
--- OUTSIDE RECORDS SUMMARY | 2025-01-20 16:38 | XMS_ITS | Encounter Summary ---
Author Organization [facility] Address [address] [facility] [address] [place] [address] Phone Care Team Providers Care Wrapper Stitcher Name Role Phone Julio Castañeda MD Primary Care Provider Unav ailable Reason for Visit * Reason Comments Med Refill Encounter Details Date Type Department Care Team (Late Contact Info) Description 05/06/2021 Refill [facility] [address] [place] [phone] Arturo Ruiz MD [address] [facility] [address] [place] [phone] Social History Tobacco Use Types [...] Office Visit [facility] [address] [facility] [address] [place] [address] Arturo Ruiz MD [address] [facility] [address] [place] [phone] documented as of this encounter Visit Diagnoses Not on filedocumented in this encounter Care Teams Wrapper Stitcher Relationship Specialty Start Date End Date Julio Castañeda MD [address] [place] [phone] PCP - General Internal Medicine 03/09/21 09/02/24 documented as of this encounter
--- OUTSIDE RECORDS SUMMARY | 2025-01-20 16:38 | XMS_ITS | Encounter Summary ---
Author Organization [employer] Address [address] [place] [address] 7 [place] [address] Care Team Providers Care Liquefied Petroleum Gasfitter Name Role Phone Julio Crockett MD Primary Care Provide r Fish Brown PharmD Unavailable +- Jaylin Santiago DO Primary Care Provider [phone] Star Contreras MD Primary Care Provider [phone] Encounter Details Date Type Department Care Team (Late st Contact Info) Description 09/02/2022 Abstract [facility] [address] [place] [phone] Julio Crockett MD [address] [place] [address] [phone] Social History Tobacco Use Types Packs/Day Years [...] 04/04/2025 9:15 AM EST Office Visit [facility] [address] [place] [address] [phone] Star Contreras MD [address] [place] [address] documented as of this encounter Goals Goal [...] on filedocumented in this encounter Care Teams Liquefied Petroleum Gasfitter Relationship Specialty Start Date End Date Julio Crockett MD [address] [place] [phone] PCP - General Internal Medicine 12/26/13 11/28/23 Jaylin Santiago DO [address] [place] [phone] PCP - General Family Medicine 11/29/23 10/01/24 Star Contreras MD [address] [place] [address] PCP - General Internal Medicine 10/02/24 Fish Brown PharmD [address] [place] [phone] Pharmacist Internal Medicine 07/07/23 documented as of this encounter
--- OUTSIDE RECORDS SUMMARY | 2025-01-20 16:38 | XMS_ITS | Encounter Summary ---
Author Organization [facility] Address [address] [place] [address] Phone Care Team Providers Care Drafter (Cad) Electronic Name Role Phone Julio Castañeda MD Primary Care Provider Unav ailable Reason for Visit * Reason [place] Date Comments Losartan RX 02/18/2021 Encounter Details Date Type Department Care Team (Late st Contact Info) Description 02/18/2021 Telephone [facility] [address] [place] [address] Wanda Carnes Social History Tobacco [...] Wanda Carnes - 02/18/2021 3:28 PM EDT [facility] pharmacy called requesting a new prescription for pt's Losartan reflecting that he takes 75 mg a day. 50mg in the morning and 25mg at night. documented in this encounter Plan of Treatment Upcoming Encounters Date Type Department Care Team (Late st Contact Info) Description 09/02/2025 1:30 PM EDT Office [facility] [address] [phone] Arturo Ruiz MD [address] [phone] documented as of this encounter Visit Diagnoses Not on filedocumented in this encounter Care Teams Drafter (Cad) Electronic Relationship Specialty Start Date End Date Julio Castañeda MD [address] [place] [address] PCP - General Internal Medicine 03/09/21 09/02/24 documented as of this encounter
--- OUTSIDE RECORDS SUMMARY | 2025-01-20 16:38 | XMS_ITS | Encounter Summary ---
Author Organization [employer] Address [address] [facility] 7 [place] [address] Care Team Providers Care Freight Tallier Name Role Phone Fish Brown PharmD Unavailable [phone] NameStar MD Primary Care Provider [phone] Reason for Visit * Reason [place] Date Comments Referral 12/20/2024 Encounter Details Date Type Department Care Team ([facility] st Contact Info) Description 12/20/2024 Telephone [facility] [address] [place] [address] Name, MD Star [address] [place] [address] Referral Social History Tobacco Use Types Packs/Day Years [...] encounter Miscellaneous Notes * Telephone Encounter - Lisette Márquez RN - 12/25/2024 10:44 AM EDT TC placed to pt via [employer] ferryboat operator cable ([employer] ID#[id number]) regarding referral request. Pt reports they delayed the referral from 09/25/24 due to travel. Pt reports office states referral has and date needs to be updated. Pt reports the referral for PT is for the chronic left-sided low back pain with left-sided sciatica. Message forwarded to referring provider regarding placing referral for pt. * Telephone Encounter - Bob Cheney - 12/20/2024 4:35 PM EDT Tc from pt requesting new referral for [facility] physical therapy. If any questions contact pt at [phone]. (Chinese Speaker) documented in this encounter Plan of Treatment Upcoming Encounters Date Type Department Care Team (Late st Contact Info) Description 04/04/2025 9:15 AM EST Office Visit [facility] [address] [place] [address] [phone] Name, MD Star [address] [place] [address] documented as of this encounter Goals Goal [...] documented as of this encounter Care Teams Freight Tallier Relationship Specialty Start Date End Date Name, MD Star [address] [place] [address] PCP - General Internal Medicine 10/02/24 Fish Brown PharmD [address] [place] [address] Pharmacist Internal Medicine 07/07/23 documented as of this encounter
--- OUTSIDE RECORDS SUMMARY | 2025-01-20 16:38 | XMS_ITS | Encounter Summary ---
Author Organization [employer] Address [address] [facility] 7t [place] [address] Care Team Providers Care Furnace Mason Name Role Phone Julio Crockett MD Primary Care Provide r Fish Brown PharmD Unavailable + Jaylin Santiago DO Primary Care Provider [phone] Star Contreras MD Primary Care Provider [phone] Reason for Visit * Reason Comments Med Refill Encounter Details Date Type Department Care Team (Late st Contact Info) Description 05/03/2023 Refill [facility] [address] [place], [place] [phone] Naren Skaggs MD [address] [place] [address] Social History Tobacco Use Types Packs/Day Years [...] 04/04/2025 9:15 AM EST Office Visit [facility] [address] [place] [address] [phone] Name, MD Star [address] [place] [address] documented as of this encounter Goals Goal [...] Time PHQ-9 Depression Total Score: 2 09/17/19 10:38 AM EDT documented as of this encounter Care Teams Furnace Mason Relationship Specialty Start Date End Date Julio Crockett MD [address] [place] [address] [phone] PCP - General Internal Medicine 12/26/13 11/28/23 Jaylin Santiago DO [address] [place], [place] [phone] PCP - General Family Medicine 11/29/23 10/01/24 Star Contreras MD [address] [place], [place] [phone] PCP - General Internal Medicine 10/02/24 Fish Brown PharmD [address] [place], [place] [phone] Pharmacist Internal Medicine 07/07/23 documented as of this encounter
== END 2025-01-20 16:38 | disposition home or self-care (01) ==
LOC: HO.ED 16:35
PROVIDERS: Emergency Provider Emergency Medicine
DX: M54.16 Radiculopathy, lumbar region (principal); M54.9 Dorsalgia, unspecified
CPT/HCPCS: 96372; 99283; 99284; J1885

== ENCOUNTER 2025-04-05 08:06 | Outpatient (REF) | payer MEDICARE, SELFPAY ==
[2025-04-05 11:23] LABS: Alanine Aminotransferase 20 U/L (0-40); Albumin Level 4.2 g/dL (3.5-5.0); Alkaline Phosphatase 67 U/L (39-117); Anion Gap 8 (12-20); Aspartate Amino Transferase 26 U/L (5-37); Blood Urea Nitrogen 21 mg/dL (9-16); Calcium 9.2 mg/dL (8.4-10.2); Carbon Dioxide 33 mmol/L (22-29); Chloride 107 mmol/L (96-108); Cholesterol 215 mg/dL (<200); Estimated Glomerular Filt Rate 52; HDL Cholesterol 41 mg/dL (>40); Potassium 4.5 mmol/L (3.3-5.1); Sodium 143 mmol/L (135-145); Total Protein 7.0 g/dL (6.5-8.0); Triglycerides 261 mg/dL (<150)
[2025-04-05 11:28] LABS: Hematocrit 43.0 % (42.0-52.0); Hemoglobin 14.4 g/dl (14.0-18.0); Imm Gran Abs Auto 0.03 X10*3/uL (0.00-0.03); Imm Gran Pct Auto 0.5 % (0.0-0.4); Lymphocytes Absolute Auto 2.1 X10*3/uL (1.2-4.9); MANUAL DIFF FLAG SCAN; Mean Corpuscular HGB Conc 33.5 g/dl (31.0-36.0); Mean Corpuscular Hemoglobin 33.0 pg (27.0-33.0); Mean Corpuscular Volume 98.6 fL (80.0-98.0); NRBC Abs Auto 0.000 X10*3/uL (0.0-0.012); NRBC Pct Auto 0.0 /100WBC (0.0-0.2); PLT CLUMP 1; Red Blood Count 4.36 X10*6/uL (4.60-5.80); SCAN SMEAR FLAG 1
[2025-04-05 11:50] LABS: White Blood Count 6.3 X10*3/uL (4.8-10.8)
[2025-04-05 11:51] LABS: Platelet Count 113 X10*3/uL (160-400)
[2025-04-05 11:58] LABS: Prostate Specific Antigen 0.38 ng/mL (<0.05-4.0)
== END 2025-04-05 08:07 | disposition home or self-care (01) ==
LOC: HO.HHCL 08:06
PROVIDERS: Internal Medicine; PCP Internal Medicine Geriatric Medicine; Visit Provider Internal Medicine Geriatric Medicine
DX: R05.1 Acute cough (principal); Z12.5 Encounter for screening for malignant neoplasm of prostate; Z13.1 Encounter for screening for diabetes mellitus; Z13.220 Encounter for screening for lipoid disorders; Z13.6 Encounter for screening for cardiovascular disorders
CPT/HCPCS: 36415; 80053; 80061; 84153; 85025; 85652; 86140

== ENCOUNTER → 2025-04-12 08:38 | Outpatient (BNVA) | payer SELFPAY | PROVIDERS: PCP Internal Medicine Geriatric Medicine; Visit Provider Physician Assistant | DX: Z02.79 Encounter for issue of other medical certificate (principal) ==

== ENCOUNTER 2025-04-15 14:25 | Outpatient (AMB) | payer MEDICARE, SELFPAY ==
--- NOTE | 2025-04-15 15:12 | MHC.OFFVIS ---
Vital Signs 04/15/25 15:13 Height 5 ft 8 in Weight 168 lb 13.985 oz BMI 25.7 BP 140/82 H Blood Pressure Location Lt brachial Position Sitting Pulse 54 Pulse Source Monitor Intake Visit Reasons: 1 yr f/up Community Health Agent Required: Yes Community Health Agent Language: Concentrator Operator Name: hawk kelsey [phone] Allergies vitamin E (d-alpha tocopherol) Allergy (Verified 04/15/25 15:18) Itching Medication List - Last Reconciled 04/15/25 by Spring Arias NP-C ammonium lactate 12% 1 appl topical NEEDED PRN azithromycin mg PO cetirizine 1 tab PO DAILY PRN cholecalciferol (vitamin D3) 25 mcg PO DAILY lidocaine 4% 1 patch topical DAILY PRN lidocaine 5% 1 patch topically; melatonin 6 mg PO BEDTIME metoprolol succinate ER 100 mg PO DAILY multivitamin (Daily Multi-Vitamin tablet) 1 tab PO DAILY nifedipine ER 30 mg PO DAILY omeprazole 20 mg PO DAILY prednisone 10 mg PO DIRECTED prednisone 40 mg (2 x 20 mg) PO DAILY spironolactone 25 mg PO DAILY HPI HPI 1 yr f/up: Details: Vasyl is a 69-year-old male with past medical history of hypertension, bifascicular block on EKG who presents for follow-up. Today he reports that he has been doing well since his last visit 1 year ago. He is not having any concerning symptoms. He denies shortness of breath, PND, orthopnea or edema. No chest discomfort at rest or with activity. No heart palpitations, lightheadedness, presyncope, syncope, falls. He admits to being mostly sedentary and plays with his phone. No routine exercise. Taking all meds as directed. Certified translator/interpreter used. [facility] Medical History Tension headache Insomnia Cerebral microvascular disease MCI (mild cognitive impairment) Bifascicular block Hypertension Lymphoma Surgical History No pertinent past surgical history Family History Mother Recurrent strokes Father Heart disease History of throat cancer Social History Household Members: Spouse Housing: Apartment Do you presently have visiting nurse or other home services: No Alcohol intake: unknown Patient Tobacco Use Status: Never used Tobacco service: No Current occupational status: employed Review of Systems Const All systems reviewed & are unremarkable except as noted in HPI and below ENT Denies dizziness Card Denies chest pain, Denies chest pain at rest, Denies chest pain with activity, Denies rapid heart rate, Denies pedal edema, Denies edema, Denies leg edema, Denies lightheadedness, Denies palpitations, Denies dyspnea, Denies dyspnea on exertion and Denies orthopnea Resp Denies cough, Denies dyspnea and Denies dyspnea on exertion GI Denies hematochezia and Denies change in stool character Musc Denies abnormal gait, Denies limited range of motion, Denies muscle cramps, Denies muscle weakness, Denies numbness, Denies radiating pain into limb, Denies stiffness and Denies tingling Neuro Denies abnormal gait, Denies dizziness, Denies numbness and Denies tingling Endo Denies palpitations Physical Exam Vital Signs: Last Vital Signs Pulse 54 04/15/25 15:13 BP 140/82 H 04/15/25 15:13 BMI result Body Mass Index 25.7 Const General: cooperative, healthy appearing, comfortable and no acute distress Orientation/consciousness: patient oriented x3 HEENT Head: Yes normal to inspection Resp Effort & Inspection: normal respiratory effort Auscultation: clear to auscultation bilaterally, no crackles, no rales, no rhonchi and no wheezes Cardio Rate: regular rate Rhythm: regular rhythm Heart sounds: S1 normal heart sound present, S2 normal heart sound present, no murmurs and no rubs Neuro General: patient oriented x3 Extrem General: Yes normal to inspection, No no pedal edema and No calf tenderness Psych Appearance: grossly normal Mental Status: mental status grossly normal Speech and movement: Normal speech and movement present Office Procedures EKG Details: Today, read by me, sinus bradycardia, left anterior fascicular block, incomplete right bundle branch block, rate 54, QTC 413 milliseconds [id number], Complete Assessment & Plan Assessment & Plan (1) Bifascicular block: Code(s): I45.2 - Bifascicular block Category: Medical Plan: Patient has a history of bifascicular block on EKGs. EKG done today does show sinus rhythm with incomplete right bundle branch block, left anterior fascicular block, rate 54, no significant change from prior EKG. He has no cardiac symptoms. Last echo 2018 with normal EF, grade 1 diastolic dysfunction. Will update echo prior to next visit. Plan for follow-up EKG/office visit in 1 year, sooner if needed (2) Hypertension: Code(s): I10 - Essential (primary) hypertension Category: Medical Qualifiers: Hypertension type: primary hypertension Qualified Code(s): I10 - Essential (primary) hypertension Plan: Blood pressure goal less than 130/80. Initial blood pressure today 140/82, recheck done by me later in visit 122/76. No med changes made. Labs 04/05/2025 showed potassium 4.5, creatinine 1.37. Continue metoprolol, nifedipine, Aldactone. Plan I discussed with the patient that his EKG today shows the same finding of delayed electricity in the heart, known as a bifascicular block, which is unchanged from his EKG last year. I reminded him that his stress test from a year and a half ago was normal and showed good blood flow, which is reassuring. Given that he feels well and the EKG is stable, I advised that no changes in management are needed. We reviewed the importance of continuing his medications as prescribed and adhering to a low-salt diet to manage his blood pressure. I also encouraged him to be more physically active for his overall health. I informed him that we will arrange for an echocardiogram before his next visit in one year, but he should return sooner if he experiences chest pain, trouble breathing, lightheadedness, or palpitations. Orders: Orders CA echo transthoracic complete 11 Months I10 - Essential (primary) hypertension, I45.2 - Bifascicular block Patient Instructions: - Continue to take all your medications as prescribed. - Try to avoid salt in your diet to help keep your blood pressure down. - We encourage you to become more physically active this year for your overall health. - We will schedule an ultrasound of your heart (echocardiogram) to be done before your next appointment. - Your next follow-up visit is scheduled for one year from now. - Please contact us sooner if you begin to have any symptoms like chest pain, trouble breathing, feeling lightheaded, or heart palpitations. Patient was informed and verbally consented to the use of an ambient scribe for clinic note documentation during this visit. Visit time spent on chart review, interview, assessment, orders, documentation. Coding Level of Care Code Est Pt Level 3 (88010) Add On Problem Visit Only Diagnoses Bifascicular block I45.2 Essential hypertension I10 Hypertension type: primary hypertension CPT Codes EKG - CPT: 64808-[id number], Complete ([id number]) Time Spent (min) 24
[2025-04-15 15:13] VITALS: BP 140/82; PULSE 54; BMI 25.7
--- OUTSIDE RECORDS SUMMARY | 2025-04-15 17:52 | XMS_ITS | Encounter Summary ---
Author Organization [facility] Address [address] [place] [address] Care Team Providers Care Continuous Improvement Consultant Name Role Phone Julio Egan Primary Care Provider + Reason for Referral * Consultation (Routine) - Pending Review Specialty Diagnoses / Procedures Referred By Tian astorga Referred To Contact Otolaryngology Diagnoses Tympanic membrane perforation, left Ear itching Jaylin Santiago [address] [place] [address] Phone: tel: fax: [facility] [address] [place] [address] Phone: tel: fax: Referral ID Status Reason Start Date Expiration Date Visits Requested Visits Authorized [id number] Pending Review Specialty Services Required 03/26/2025 04/26/2026 6 6 Encounter Details Date Type Department Care Team (Late st Contact Info) Description 03/26/2025 Transcribe Orders [facility] [address] [place] [address] Jaylin Santiago [address] [place], [place] [phone] Tympanic membrane perforation, left (Primary Dx); Ear itching Social History Tobacco Use Types Packs/Day Years Used Date Smoking Tobacco: Former Comments:: Sex and Gender Information Value Date Recorded Sex Assigned at Male 04/02/2025 10:58 AM EST Legal Sex Male 7:27 AM EDT Gender Identity Male 04/02/2025 10:58 AM EST Sexual Orientation Not on file documented as of this encounter Plan of Treatment Upcoming Encounters Date Type Department Care Team ([facility] st Contact Info) Description 05/30/2025 11:20 AM EST Procedure visit [facility] [address] [place] [phone] 05/30/2025 12:00 PM EST Appointment [facility] [address] [place] [address] Spring Coiler: Skylar Hawley MD [address] [place] [phone] Scheduled Referrals Name Type Priority Associated Diagnoses Order Schedule Ambulatory referral to ENT Outpatient Referral Routine Tympanic membrane perforation, left Ear itching Expected: 03/26/2025, Expires: 04/26/2026 documented as of this encounter Visit Diagnoses Diagnosis Tympanic membrane perforation, left- Primary Ear itching documented in this encounter Care Teams Continuous Improvement Consultant Relationship Specialty Start Date End Date Julio Egan [address] [place] [address] PCP - General 11/11/16 documented as of this encounter
--- OUTSIDE RECORDS SUMMARY | 2025-04-15 17:52 | XMS_ITS | Encounter Summary ---
Author Organization [facility] Address [address] [facility] [address] [place] [address] Phone Care Team Providers Care Vendor Quality Supervisor Name Role Phone Julio Castañeda MD Primary Care Provider Unav ailable Reason for Visit * Reason Comments Med Refill Encounter Details Date Type Department Care Team (Late Contact Info) Description 05/06/2021 Refill [facility] [address] [place] [address] Arturo Ruiz MD [address] [facility] [address] [place] [address] Social History Tobacco Use Types [...] Department Care Team (Late Contact Info) Description 04/25/2025 Orders Only [facility] [address] [facility] [address] [place] [phone] Arturo Ruiz MD [address] [facility] [address] [place] [address] Chronic kidney disease stage 2; Hypertensive renal disease; Hypokalemia 09/02/2025 1:30 PM EDT Office Visit [facility] [address] [facility] [address] [place] [address] Arturo Ruiz MD [address] [phone] documented as of this encounter Visit Diagnoses Not on filedocumented in this encounter Care Teams Vendor Quality Supervisor Relationship Specialty Start Date End Date Julio Castañeda MD [address] [place] [address] PCP - General Internal Medicine 03/09/21 09/02/24 documented as of this encounter
--- OUTSIDE RECORDS SUMMARY | 2025-04-15 17:52 | XMS_ITS | Data Portability ---
Author Organization [employer] [facility] Address [address] [place] [phone] Care Team Providers Care Production Finisher Name Role Phone HIM CCA OTHER Assessment Encounter Date Assessment Date Assessment LastModified by Organization Details LastModified Time 10/13/2023 10/13/2023 I have reviewed and agree with the assessment and plan as documented by the newspaper carrier. I provided real time medical direction for this encounter and was immediately available to provide additional phone based assistance as needed. History as noted by newspaper carrier. Pt with history of L sided sciatica [...] assessment and plan as documented by the newspaper carrier. I provided real-time medical direction for this [...] ketorolac 30 mg/mL injection solution 2023 024 [id number], [address] [facility], [place], [address], 17:01:04 ketorolac 60 mg/2 mL intramuscul ar [...] rate Body weight Body temperature Oxygen saturation Systolic And Diastolic Provider Name and Address Organization Details Last Updated DateTime 4 16 /min 60 /min 90620.7 2 g 98.4 [degF] 97 % 160/88 mm[Hg] Not Available [employer] - production 12:08:45 Date Recorded Body weight Heart rate Oxygen saturation Body height Respiratory rate Systolic And Diastolic Provider Name and Address Organization Details Last Updated DateTime 4 74535.6 8 g 66 /min 97 % 175.26 cm 16 /min 142/91 mm[Hg] Not Available [employer] production 16:56:48 Social History None recorded. Functional Status None recorded. Mental Status None recorded. Family History Nothing Reported. Medical History No medical history recorded. Past Encounters Encounter ID Performer Location Encounter Start Date Encounter Closed Date Diagnosis/Indication Diagnosis SNOMED-CT Code Diagnosis ICD10 Code Diagnosis IMO Codes Diagnosis Note [id number] Eric De Dios MD [facility] [address] [place] [phone] 10/13/2023 12:08:42 10/13/2023 20:35:12 Lumbar radiculopathy 490757579 M54.16 [id number] Vesta Frankel MD [facility] [address] [place] [phone] 10/19/2023 16:56:46 10/20/2023 09:15:08 Acute back pain with sciatica 802417363 M54.42 Health Concerns Section Related Observation LastModified by Organization Detai ls LastModified Time None Recorded Concern Status LastModified by Organization Details LastModified Time None Recorded Advance Directives Directive None Recorded Payers Insurance Date Sequence Insurance Name Policy Number Policy Mack Covered Member ID Mack Member ID Guarantor Name 10/19/2023 1 [facility] - DOS ON OR AFTER 2022 - MEDICARE ADVANTAGE [place] (MEDICARE REPLACEMENT/AD VANTAGE - PPO) Vasyl Mari [id number] Vasyl Mari Notes Date Note Type Note Provider Name and Address Organization Details Recorded Time 10/13/2023 text/html ROS as noted in the HPI This was a supervised home visit with newspaper carrier Roderick Rodriguez. [facility] Nurse Triage Notes (Nichole Kennedy): Chief Complaints: Pain PMH: Hypertension, Cancer Allergies: Unknown Pain Assessment: Level 9 out of 10 Comments: Chadian speaking member calling to request visit for [...] .................. .................. .................. .................. .................. .................. ............... Manager Fleet Note From Roderick Rodriguez: Pt co sciatica pain left side going down left leg x3 days. Pt using gabapetin with no relief. Pt waiting for referral to PTherapy. Pt denies urinary symptoms , abdominal pain, confusion, cp sob NVD. Baseline vitals assessed. Negative cva tenderness or abdominal tenderness. Afebrile. [facility] contacted and 30mg toradol IM. Pt advised to follow up with pcp for referral. Pt education on signs indicating the ER. .................. .................. .................. .................. .................. .................. .................. ............... Disposition: Gurdeep Eric De Dios MD [address] [facility],[address], [place], [address], [facility] Sergo RadicoROCIO CRAMER 10/13/2023 12:33:01 10/19/2023 text/html [facility] Nurse Triage Notes (Damaris Servin): Reason For Request: Chadian speaking member calling to request visit for sciatic pain. Patient states he missed a step going down the stairs last . States he started running to avoid falling. Did not fall but had an exacerbation of pain since that incident. Went to ER last for evaluation. Patient has been taking gabapentin and applying Lidocaine patches with no improvement Seen by Odalys on 10/13/23 for above, requesting revisit Chief Complaints: Pain PMH: Hypertension, Cancer Allergies: No Known Comments: Referral taken via [id number]. Member was seen by Odalys 10/12 and [...] .................. .................. .................. .................. .................. .................. ............... Manager Fleet Note From José Miguel Bee: [facility] visit for male patient with sciatic pain. Pt presents conscious and alert. Pt Chadian speaking so freelance interpreter/translator was utilized. Pt reports onset of sciatic pain about 2 weeks ago. Pt was treated with tylenol and prednisone without much improvement. Pt had insted visit 1 week ago and was given toradol which gave him relief. V/S taken and WNL. Consulted with [facility] Frankel who ordered 15 mg IM toradol. Pt instructed to follow up with PCP for longer term pain management as well as possible physical therapy. Patient education provided. .................. .................. .................. .................. .................. .................. .................. ............... Disposition: Fulfilled Vesta Frankel MD [address] [place] [address],[address], [place], [phone], [facility] - [employer] [facility] 10/19/2023 20:26:17
--- OUTSIDE RECORDS SUMMARY | 2025-04-15 17:52 | XMS_ITS | Encounter Summary ---
Author Organization [employer] Address [address] [facility] [address] [facility] 7 [place] [address] Care Team Providers Care Senior Architect Name Role Phone Fish Brown PharmD Unavailable [phone] NameStar MD Primary Care Provider [phone] Reason for Visit * Reason Onset Date Comments Referral 12/20/2024 Encounter Details Date Type Department Care Team ([facility] st Contact Info) Description 12/20/2024 Telephone [facility] [address] [place] [address] Name, MD Star [address] [place] [address] Referral Social History Tobacco Use Types Packs/Day [...] AM EDT TC placed to pt via [employer] payroll bookkeeper ([employer] ID#[id number]) regarding referral request. Pt reports they delayed [...] Tc from pt requesting new referral for [facility] physical therapy. If any questions contact pt at [phone]. (Swedish Speaker) documented in this encounter Plan of Treatment Upcoming Encounters Date Type Department Care Team (Late st Contact Info) Description 06/25/2025 9:15 AM EST Office Visit [facility] [address] [place] [id number] Name, MD Star [address] [place] [address] documented as of this encounter Goals Goal Patient Goal Type Associated Problems Recent Progress Patient-Stated? Author Blood Pressure < 140/90 Blood Pressure 137/78(2024 9:48 AM EST) No Fish Brown PharmD HDL > 40 Result Component No Fish Brown PharmD Note: Eat foods that help with (HDL) good cholesterol. Beans, avocado, olive oil, & whole grains documented as of this encounter Visit Diagnoses Not on filedocumented in this encounter Additional Health Concerns Assessment Noted Time PHQ-9 Depression Total Score: 0 04/09/20 11:43 AM EST documented as of this encounter Care Teams Senior Architect Relationship Specialty Start Date End Date Name, MD Star [address] [place] [address] PCP - General Internal Medicine 10/02/24 Fish Brown PharmD [address] [place] [address] Pharmacist Internal Medicine 07/07/23 documented as of this encounter
--- OUTSIDE RECORDS SUMMARY | 2025-04-15 17:52 | XMS_ITS | Clinical Summary ---
Author Organization [employer] Address [address] [place] [address] [address] [place] [address] Care Team Providers Care Communications Department Head Name Role Phone Fish Brown PharmD Unavailable [phone] Name, Star HAYES Primary Care Provider Allergies Active Allergy Reactions Criticality Noted Date [...] TO SHOULDER AND RUB IN UNTIL DRY 024 Active Diclofenac Sodium 1 % gel Apply 2 g topically if needed in the morning, at noon, in the evening, and at bedtime (pain). 150 g 3 024 Active albuterol (Ventolin HFA) 108 (90 Base) MCG/ACT inhaler INHALE 2 PUFFS EVERY 4 HOURS IF NEEDED FOR WHEEZING 18 g 1 025 Active hydrocortisone 2.5 % creamIndication s:Ear itch Apply topically 2 times daily. 20 g 025 Active fluticasone (Flonase) 50 MCG/ACT nasal sprayIndication s:Viral upper respiratory tract infection Administer 2 sprays into each nostril Once per day. Shake gently. Before first use, prime pump. After use, clean tip and replace cap. 48 mL 3 025 Active sodium chloride ([place] Nasal [place]) 0.65 % nasal sprayIndication s:Nasal congestion Administer 1 spray into each nostril if needed for congestion. 30 mL 12 025 2025 Active cetirizine (ZyrTEC) 5 MG tabletIndicatio ns:Allergic rhinitis, unspecified seasonality, unspecified trigger Take 1 tablet (5 mg) by mouth Once per day. 90 tablet 1 025 2025 Active albuterol 108 (90 Base) MCG/ACT inhalerIndicati ons:Nasal congestion INHALE 2 PUFFS POR VIA ORAL EVERY 4 HOURS IF NEEDED FOR WHEEZING. 18 g 1 025 Active diphenhydrAMINE (BENADryl) 50 MG tablet Take 1 tablet (50 mg) by mouth every 6 (six) hours if needed for itching. 30 tablet 1 025 2025 Active azithromycin (Zithromax) 250 MG tabletIndicatio ns:Otitis of both ears Take 2 tabs PO daily x 1d then 1 tab PO daily on D2 to D5 6 tablet Active hydrOXYzine HCl (Atarax) 25 MG tabletIndicatio ns:Eczema of external ear, bilateral Take 1 tablet (25 mg) by mouth every 6 (six) hours if needed for itching. 30 tablet 025 2024 Active baclofen (Lioresal) 10 MG tablet TAKE 1 TABLET BY MOUTH IN THE MORNING, AT NOON AND AT BEDTIME NEEDED FOR MUSCLE SPASMS 90 tablet 2 Active fluocinolone (DermOtic) 0.01 % ear drops Administer 4 drops into affected ear(s) if needed in the morning and at bedtime. Active baclofen (Lioresal) 10 MG tablet TAKE 1 TABLET BY MOUTH IN THE MORNING, AT NOON AND AT BEDTIME NEEDED FOR MUSCLE SPASMS 90 tablet 2 025 2024 Discontinued benzonatate (Tessalon) 100 MG capsule Take 1 capsule (100 mg) by mouth if needed in the morning, at noon, and at bedtime for cough for up to 10 days. Do not crush or chew. 30 capsule 2024 predniSONE (Deltasone) 20 MG tabletIndicatio ns:Eczema of external ear, bilateral Take 2 tablets (40 mg) by mouth Once per day for 5 days. 10 tablet 2024 Active Problems Problem Noted Date Diagnosed Date Otitis of both ears 03/19/2025 MCI (mild cognitive impairment) 12/27/2024 Eczema of [...] for eval and stress testing seen at [facility] 05/25/2018 they recommended ECHO only and NO [...] root in the neural foramen. Evaluated at [facility] on 06/26/2014 started on Gabapentin and [...] root in the neural foramen. 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. He was last seen at [facility] 03/30/2016. pt found to be well engrafted, CAT scan showed full remission. They recommended follow up with us q 6 months with CBC, CMP and LDH and PRN with them if recurrent symptoms. 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. He was last seen at [facility] 03/30/2016. pt found to be well engrafted, CAT scan showed full remission. They recommended follow up with us q 6 months with CBC, CMP and LDH and PRN with them if recurrent symptoms. He also remains under the care at [facility] cancer startex. According to oncologist last note from 03/17/2022 [...] mg 1 tab daily. (Prescribed by his [employer])), Metoprolol XL 100 mg po daily ( Prescribed by Weir Fisher ) and Nifedipine 30 mg po daily , he is off Amlodipine due to leg edema. Most recent Lytes, Bun and Cr. done on were wnl. Pt stopped Losartan because he thought it was a Vitamin Plan: continue regimen as per [employer] Assessment & Plan (05/16/2023 3:35 PM EST): [...] mg 1 tab daily. (Prescribed by his [employer])), Metoprolol XL 100 mg po daily ( Prescribed by Weir Fisher ) and Mlodipine 30 mg po daily , he is off Amlodipine due to leg edema. Most recent Lytes, Bun and Cr. done on 07/21/2022 were wnl. Plan: continue regimen as per [employer] Assessment & Plan (09/27/2022 11:15 AM EDT): [...] mg 1 tab daily. (Prescribed by his [employer])), Metoprolol XL 100 mg po daily ( Prescribed by Weir Fisher ) he is off Amlodipine due to leg edema. Most recent Lytes, Bun and Cr. done on 07/21/2022 were wnl. Plan: continue regimen as per [employer] Assessment & Plan (07/21/2022 10:33 AM EDT): Fairly well controlled. Continue multiple medications and FU with PCP in 3 months FU with [employer] once per year Assessment & Plan (04/15/2022 1:11 PM EST): Pt is here for a f/u BP stable He is on Losartan 100 in AM and Spironolactone 25 mg 1 tab daily. (Prescribed by his [employer])), Metoprolol XL 100 mg po daily ( Prescribed by Weir Fisher ) he is off Amlodipine due to leg edema. Most recent Lytes, Bun and Cr. done on 07/22/2021 were wnl. Will repeat Plan: continue regimen as per [employer] Benign prostatic hyperplasia 04/25/1959 Depressive disorder 04/25/1959 [...] Plan (07/14/2023 11:01 AM EDT): Will call [facility] to expedite his visit as he [...] 11/17/2016 he was seen by ENT at [facility] who did not find any abnormality aside [...] 11/17/2016 he was seen by ENT at [facility] who did not find any abnormality aside [...] Encounters Date Type Department Care Team Description 04/05/2025 Orders Only [facility] [address] [place] [address] Sadie Thapa MD Macrocytosis (Primary Dx) 04/05/2025 Orders Only [facility] [address] [place] [address] Sadie Thapa MD 04/04/2025 9:15 AM EST Office Visit [facility] [address] [place] [phone] Name, MD Star Essential hypertension (Primary Dx); Healthcare maintenance; Screening for prostate cancer; Screening for cholesterol level; Screening for diabetes mellitus (DM); Encounter for immunization 04/04/2025 Travel 03/28/2025 Refill [facility] [address] [place] [phone] Star Contreras MD 03/25/2025 Patient Outreach [facility] [address] [place] [phone] Star Contreras MD Pre-visit Planning ([facility] screening was completed on 12/19/2024) 03/19/2025 1:20 PM EST Office Visit [facility] [address] [address] Felisa Marley MD Otitis of both ears (Primary Dx); Eczema of external ear, bilateral 03/19/2025 Travel 03/19/2025 Telephone [facility] [address] [place] [phone] Star Contreras MD Referral 03/14/2025 11:20 AM EST [facility] [address] [address] Jaylin Santiago DO Ear itching (Primary Dx); Tympanic membrane perforation, left 03/14/2025 Travel 03/07/2025 8:40 AM EST [facility] [address] [address] Figueroa Lawson MD Itching of ear (Primary Dx) 03/07/2025 Travel 03/04/2025 1:20 PM EST [facility] [address] [address] Maday Maldonado FNP Viral illness (Primary Dx); Viral upper respiratory tract infection; Wheezing; Eczema of external ear, bilateral; Allergic rhinitis, unspecified seasonality, unspecified trigger; Nasal congestion 03/04/2025 Travel from Last 3 Months Immunizations Immunization Administration Dates Next Due Hep A, Adult 10/21/2009,04/17/2009 Hep B, adult 10/21/2009,05/20/2009,04/17/2009 Influenza High-dose Quadriva lent Preservative Free 01/25/2023 Influenza Injectable Quadriv alant Preservative Free IIV4 MDCK 02/15/2022 Influenza injectable quadriv alent IIV4 with preservative 01/03/2019,02/21/2018,01/14/2017,02/02 Influenza injectable quadriv alent preservative free 01/30/2021,01/22/2020,01/23/2015 Influenza, High Dose Seasona l, Preservative Free 04/04/2025,02/10/2024,12/25/2019 Influenza, IIV3, injectable 01/03/2014, 2 Influenza, Split [...] drink = 0.6 oz pur e alcohol) Alcohol Answer Date Recorded How often do you have a drink containing alcohol ? 0 04/04/2025 Average Number of Drinks Not on file 025 Frequency of Binge Drinking Not on file 03/25 Depression Answer Date Recorded Patient Health Questionnaire-9 [...] Sign Reading Time Taken Comments Blood Pressure 137/78 04/04/2025 9:48 AM EST Pulse 79 04/04/2025 9:29 AM EST Temperature 36.4 C (97.6 F) 04/04/2025 9:29 AM EST Respiratory Rate 18 04/04/2025 9:29 AM EST Oxygen Saturation 96% 04/04/2025 9:29 AM EST Inhaled Oxygen Concentration - - Weight 77.2 kg (170 lb 3.2 oz) 04/04/2025 9:29 A M EST Height 175.3 cm (5' 9 ) 04/04/2025 9:29 AM EST Body Mass Index 25.13 04/04/2025 9:29 AM EST Plan of Treatment Upcoming Encounters Date Type Department Care Team (Late st Contact Info) Description 06/25/2025 9:15 AM EST Office Visit [facility] [address] [place] [phone] Name, MD Star [address] [place] [address] Health Maintenance Due Date Last Done Comments CT Colonography 1957 FIT DNA/Cologuard 1957 FIT 1957 FOBT 1955 Sigmoidoscopy 1955 IPV Vaccines (3 of 3 - Adult catch-up series) 07/25/2015 01/23/2015, 11/14/2014 COVID-19 Vaccine (3 - Pfizer risk series) 01/15/2021 12/18/2020, 11/27/2020 Depression Screening 04/09/2025 04/09/2024, 04/09/20 24 SDOH Screening 12/19/2025 12/19/2024 Alcohol/Substance Use Screening 12/27/2025 12/27/2024 Tobacco Screening 04/04/2026 04/04/2025 DTaP/Tdap/Td Vaccines (5 - Td or Tdap) 11/26/2028 11/26/2018, 02/03/2016, 01/23/2015, Additional history exists Colonoscopy 10/04/2029 10/05/2019 Colorectal Cancer Screening 10/04/2029 Lipid Panel 04/05/2030 04/05/2025, 08/0 09/2023, 04/16/2022, Additional history exists Hepatitis A Vaccines Aged Out 10/21/2009, 04/17/20 09 No longer eligible based on patient's age to complete this topic HIB Vaccines Aged Out 01/23/2015, 11/14/2014 No lo nger eligible based on patient's age to complete this topic Hepatitis B Vaccines Completed 01/23/2015, 11/14/2014, 10/21/2009, Additional history exists Zoster Vaccines Completed 09/18/2021, 06/26/2021 Pneumococcal Vaccine: 50+ Years Completed 06/10/2023, 11/14/2014, 06/18/2013, Additional history exists RSV Patients and Patients Aged 60 years or older Completed 06/10/2023 Hepatitis C Screening Completed 11/29/2023 Influenza Vaccine Completed 04/04/2025, , 01/25/2023, Additional history exists HPV Vaccines Aged Out No longer eligi [...] Procedure Name Priority Date/Time Associated Diagnosis Comments SLIDE REVIEW Routine 04/05/2025 8:10 AM EST LIPID PANEL, STANDARD Routine 04/05/2025 8:10 AM EST Screening for cholesterol level COMPREHENSIVE METABOLIC PANEL Routine 04/05/2025 8:10 AM EST Screening for diabetes mellitus (DM) PSA, TOTAL Routine 04/05/2025 8:10 AM EST Screening for prostate cancer SED RATE BY MODIFIED WESTERGREN Routine 04/05/2025 8:10 AM EST Acute cough C-REACTIVE PROTEIN Routine 04/05/2025 8: 10 AM EST Acute cough CBC WITH AUTO DIFFERENTIAL Routine 04/05/2025 8:10 AM EST Acute cough POCT INFLUENZA A (ID NOW RAPID MOLECULAR) Routine 03/04/2025 2:00 PM EST Viral illness POCT COVID-19 AG GUILLAUME ID NOW Routine 03/04/2025 2:00 PM EST Viral illness POCT INFLUENZA B (ID NOW RAPID MOLECULAR) Routine 03/04/2025 1:59 PM EST Viral illness HEPATITIS C AB W/REFL TO HCV RNA, QN, PCR Routine 11/29/2023 9:30 AM EDT Essential hypertension Stage 2 chronic kidney disease Chronic bilateral low back pain with left-sided sciatica Scrotal pain Ear itching History of B-cell lymphoma BMI 24.0-24.9, adult HM COLONOSCOPY Routine 10/05/2019 from Last 3 Months or Most Recently Relevant to Health Maintenance Results * Slide Review (04/05/2025 8:10 AM EST) Slide Review VERIFIED [facility] 04/05/2025 8:10 AM EST 04/05/2025 10:54 AM EST us Sadie Thapa MD LAB BLOOD ORDERABLES Final Result [facility] [address] [place] [phone] * (ABNORMAL) CBC auto differential (04/05/2025 8:10 AM EST) White Blood Count 6.3 4.8 - 10.8 X10*3/uL [facility] Red Blood Count 4.36(L) 4.60 - 5.80 X10*6/uL [facility] Hemoglobin 14.4 14.0 - 18.0 g/dl [facility] Hematocrit 43.0 42.0 - 52.0 % [facility] Mean Corpuscular Volume 98.6(H) 80.0 - 98.0 fL [facility] Mean Corpuscular Hemoglobin 33.0 27.0 - 33.0 pg [facility] Mean Corpuscular HGB Conc 33.5 31.0 - 36.0 g/dl [facility] Red Cell Distribution Width 12.6 11.0 - 16.0 % [facility] Platelet Count 113(L) 160 - 400 X10*3/uL [facility] Mean Platelet Volume 11.4 9.4 - 12.4 fL [facility] Neutrophils Percent Auto 50.1 45 - 73 % [facility] Imm Gran Pct Auto 0.5(H) 0.0 - 0.4 % [facility] Lymphocytes Percent Auto 33.7 20 - 40 % [facility] Monocytes Percent Auto 10.9 2 - 11 % [facility] Eosinophils Percent Auto 4.0 0 - 4 % [facility] Basophils Percent Auto 0.8 0 - 2 % [facility] NRBC Pct Auto 0.0 0.0 - 0.2 /100WBC [facility] Neutrophils Absolute Auto 3.2 2.0 - 8.3 x10*3/uL [facility] Imm Gran Abs Auto 0.03 0.00 - 0.03 X10*3/uL [facility] Lymphocytes Absolute Auto 2.1 1.2 - 4.9 X10*3/uL [facility] Monocytes Absolute Auto 0.7 0.1 - 1.2 X10*3/uL [facility] Eosinophils Absolute Auto 0.3 0.0 - 0.4 X10*3/uL [facility] Basophils Absolute Auto 0.1 0.0 - 0.2 X10*3/uL [facility] NRBC Abs Auto 0.000 0.0 - 0.012 X10*3/uL [facility] Blood Venous blood specimen / Unknown 04/05/2025 8:10 AM EST 04/05/2025 10:54 AM EST us Sadie Thapa MD LAB BLOOD ORDERABLES Edited Result - Final [facility] [address] [place] [phone] * Sed Rate by Modified Bruno (04/05/2025 8:10 AM EST) Erythrocyte Sedimentation Rate 10 1 - 20 MM/HR [facility] Comment:Patients with polycy themia and many hemoglobin abnormalitiesmay have depressed sed rates whereas patients with anemiamay have elevated sed rates. Blood Venous blood specimen / Unknown 04/05/2025 8:10 AM EST 04/05/2025 10:54 AM EST Sadie Thapa MD LAB BLOOD ORDERABLES Final Result Performing Organization Address [facility] Co de Phone Number [facility] [address] [place] [phone] * C-reactive Protein (04/05/2025 8:10 AM EST) C Reactive Protein 0.16 < or = 0.50 mg/dL [facility] Blood Venous blood specimen / Unknown 04/05/2025 8:10 AM EST 04/05/2025 10:54 AM EST us Sadie Thapa MD LAB BLOOD ORDERABLES Final Result Performing Organization Address [facility] Co de Phone Number [facility] [address] [place] [phone] * PSA,Total (04/05/2025 8:10 AM EST) Prostate Specific Antigen 0.38 <0.05 - 4.0 ng/mL [facility] Comment:PSA methodology: Mike Peterson i ChemiluminescentMicroparticle Immunoassay (CMIA) Blood Venous blood specimen / Unknown 04/05/2025 8:10 AM EST 04/05/2025 10:54 AM EST Star Contreras MD LAB BLOOD ORDERABLES Final Resul t Performing Organization Address [facility] Co de Phone Number [facility] [address] [place] [phone] * (ABNORMAL) Lipid Panel, Standard (04/05/2025 8:10 AM EST) Triglycerides 261(H) <150 mg/dL [facility] Comment:Desirable Triglyceri de: less than 150 mg/dLBorderline High Triglyceride 150-199 mg/dLHigh Triglyceride: 200-499 mg/dLVery High Triglyceride: greater than or equal to 5OO mg/dL Cholesterol 215(H) <200 mg/dL [facility] Comment:Desirable Cholestero l: less than 200 mg/dLBorderline High Cholesterol: 200-239 mg/dLHigh Cholesterol: greater than 239 mg/dL LDL Cholesterol Calculated 122(H) <100 mg/dL [facility] Comment:Desirable LDL: less than 100 mg/dLNear Optimal/Above Optimal LDL: 110- 129 mg/dLBorderline High LDL: 130-159 mg/dLHigh LDL: 160-189 mg/dLVery High LDL: greater than or equal to 190 mg/dL HDL Cholesterol 41 >40 mg/dL [facility] Comment:Desirable HDL: great er than 40 mg/dL Note: This HDL assay may give artificially low results in patients with liver disease. Blood Venous blood specimen / Unknown 04/05/2025 8:10 AM EST 04/05/2025 10:54 AM EST us Star Name MD LAB BLOOD ORDERABLES Final Resul t [facility] [address] [place] [phone] * (ABNORMAL) Comprehensive Metabolic Panel (04/05/2025 8:10 AM EST) Sodium 143 135 - 145 mmol/L [facility] Potassium 4.5 3.3 - 5.1 mmol/L [facility] Chloride 107 96 - 108 mmol/L [facility] Carbon Dioxide 33(H) 22 - 29 mmol/L [facility] Anion Gap 8(L) 12 - 20 [facility] Urea Nitrogen (BUN) 21(H) 9 - 16 mg/dL [facility] Creatinine, Serum 1.37 0.5 - 1.4 mg/dL [facility] Estimated Glomerular Filt Rate 52 [facility] Comment:Chronic Kidney Disea se: Estimated GFR < 60 mL/min/[id number] Kidney Disease: Estimated GFR < 15 mL/min/1.73m2 Glucose 136(H) 60 - 115 mg/dL [facility] Calcium 9.2 8.4 - 10.2 mg/dL [facility] Bilirubin, Total 1.0 0.0 - 1.0 mg/dL [facility] Aspartate Amino Transferase 26 5 - 37 U/L [facility] Alanine Aminotransferase 20 0 - 40 U/L [facility] Total Protein 7.0 6.5 - 8.0 g/dL [facility] Albumin Level 4.2 3.5 - 5.0 g/dL [facility] Alkaline Phosphatase 67 39 - 117 U/L [facility] Blood Venous blood specimen / Unknown 04/05/2025 8:10 AM EST 04/05/2025 10:54 AM EST Star Contreras MD LAB BLOOD ORDERABLES Final Resul t Performing Organization Address City/[facility]/ZIP Co de Phone Number [facility] [address] [place] [phone] * Influenza A (ID NOW Rapid Molecular) (03/04/2025 2:00 PM EST) Pathologist [facility] Influenza A Negative Negative, Indeterminate [facility] QC Media Lot # [id number] [facility] Lot# Expiration Date [facility] Swab 03/04/2025 2:00 PM EST us Maday Maldonado TRIAGE NURSE POINT OF CARE TEST ENTER/EDIT ORDERABLES Final Result Performing Organization Address City/[facility]/ZIP Co de Phone Number [facility] [address] [place] [phone] * POCT COVID-19 Ag Guillaume ID NOW (03/04/2025 2:00 PM EST) Pathologist [facility] Coronavirus Antigen PCR Negative Negative, Indeterminate, None Detected, Invalid, Specimen unsatisfactory for evaluation, Weakly Positive, 2+ QC Media Lot # [id number] Lot# Expiration Date [id number] Swab 03/04/2025 2:00 PM EST Maday [employer] TRIAGE NURSE POINT OF CARE TEST ENTER/EDIT ORDERABLES Final Result * Influenza B (ID NOW Rapid Molecular) (03/04/2025 1:59 PM EST) [facility] Influenza B Negative Negative, Indeterminate [facility] QC Media Lot # [id number] [facility] Lot# Expiration Date 127 [facility] Swab 03/04/2025 1:59 PM EST Maday [employer] TRIAGE NURSE POINT OF CARE TEST ENTER/EDIT ORDERABLES Final Result Performing Organization Address [facility]/ZIP Co de Phone Number [facility] [address] [place] [phone] * Hepatitis C Antibody with Reflex to HCV, RNA, Quantitative, Real-Time PCR (11/29/2023 9:30 AM EDT) [facility] Hepatitis C Antibody Nonreactive Nonreactive [facility] Comment:Antibodies to HCV no t detected; does not exclude early acuteHCV infection. Blood Venous blood specimen / Unknown 11/29/2023 9:30 AM EDT 11/29/2023 11:19 AM EDT Jaylin Santiago DO LAB BLOOD ORDERABLES Final R esult Performing Organization Address [facility]/ZIP Co de Phone Number [facility] [address] [place] [phone] * Hm Colonoscopy (10/05/2019) [facility] Colonoscopy performed Historical Provider HEALTH MAINTENANCE Edited Result - Final from Last 3 Months or Most Recently Relevant to Health Maintenance Insurance [employer] MEDICARE REPLACEMENT [facility] Care Teams Communications Department Head Relationship Specialty Start Date End Date Name, MD Star [address] [place] [address] PCP - General Internal Medicine 10/02/24 Fish Brown PharmD [address] [place] [address] Pharmacist Internal Medicine 07/07/23
--- OUTSIDE RECORDS SUMMARY | 2025-04-15 17:52 | XMS_ITS | Encounter Summary ---
Author Organization [employer] Address [address] [place] [address] 7t [place] [address] Care Team Providers Care Robotic Maintenance Technician Name Role Phone Fish Brown PharmD Unavailable [phone] Jaylin Santiago DO Primary Care Provider + [phone] Name, Star HAYES Primary Care Provider [phone] Reason for Visit * Reason Onset Date Comments Med Refill 09/09/2024 Encounter Details Date Type Department Care Team (Late st Contact Info) Description 09/09/[address] [facility] [address] [place] [address] Jaylin Santiago DO [address] [place], [place] [phone] Viral upper respiratory tract infection Social History [...] Description 06/25/2025 9:15 AM EST Office Visit [facility] [address] [place] [address] Name, MD Star [address] [place] [address] documented as of this encounter Goals Goal Patient Goal Type Associated Problems Recent Progress Patient-Stated? Author Blood Pressure < 140/90 Blood Pressure 137/78(2024 9:48 AM EST) No Fish Brown, PharmMitchel HDL > 40 [...] documented as of this encounter Care Teams Robotic Maintenance Technician Relationship Specialty Start Date End Date Jaylin Santiago DO [address] [place], [place] [phone] PCP - General Family Medicine 11/29/23 10/01/24 Star Contreras MD [address] [place] [address] [phone] PCP - General Internal Medicine 10/02/24 Fish Brown, JossueD [address] [place] [address] [phone] Pharmacist Internal Medicine 07/07/23 documented as of this encounter
--- OUTSIDE RECORDS SUMMARY | 2025-04-15 17:52 | XMS_ITS | Encounter Summary ---
Author Organization [facility] Address [address] [place] [address] Phone Care Team Providers Care Supervisor Firearms Name Role Phone Julio Castañeda MD Primary Care Provider Unav ailable Reason for Visit * Reason Onset Date Comments Losartan RX 02/18/2021 Encounter Details Date Type Department Care Team (Late st Contact Info) Description 02/18/2021 Telephone [facility] [address] [place] [address] Wanda Carnes Social History Tobacco [...] Wanda Carnes - 02/18/2021 3:28 PM EDT [facility] pharmacy called requesting a new prescription for pt's Losartan reflecting that he takes 75 mg a day. 50mg in the morning and 25mg at night. documented in this encounter Plan of Treatment Upcoming Encounters Date Type Department Care Team (Late st Contact Info) Description 04/25/2025 Orders Only [facility] [address] [phone] Arturo Ruiz MD [facility] [address] [phone] Chronic kidney disease stage 2; Hypertensive renal disease; Hypokalemia 09/02/2025 1:30 PM EDT Office Visit [facility] [place] [phone] [phone] Arturo Ruiz MD [facility] [address] [phone] documented as of this encounter Visit Diagnoses Not on filedocumented in this encounter Care Teams Supervisor Firearms Relationship Specialty Start Date End Date Julio Castañeda MD [address] [place] [address] PCP - General Internal Medicine 03/09/21 09/02/24 documented as of this encounter
--- OUTSIDE RECORDS SUMMARY | 2025-04-15 17:52 | XMS_ITS | Encounter Summary ---
Author Organization [employer] Address [address] [facility] 7 [place] [address] Care Team Providers Care Respiratory Care Instructor Name Role Phone Fish Brown PharmD Unavailable [phone] NameStar MD Primary Care Provider [phone] Reason for Visit * Reason Onset Date Comments Referral 03/19/2025 Encounter Details Date Type Department Care Team ([facility] st Contact Info) Description 03/19/2025 Telephone [facility] [address] [place] [address] Name, MD Star [address] [place] [address] Referral Social History Tobacco Use Types Packs/Day [...] encounter Miscellaneous Notes * Telephone Encounter - Star Jo - 03/19/2025 11:38 AM EST Tc from pt reporting that he called [facility] and was reporting that there is no Otolaryngology. Pt is going ENT [place] in [place] to see. Any questions contact pt at [phone] documented in this encounter Plan of Treatment Upcoming Encounters Date Type Department Care Team (Late st Contact Info) Description 06/25/2025 9:15 AM EST Office Visit [facility] [address] [place] [address] Name, MD Star [address] [place] [address] documented as of this encounter Goals Goal [...] documented as of this encounter Care Teams Respiratory Care Instructor Relationship Specialty Start Date End Date Name, MD Star [address] [place] [address] PCP - General Internal Medicine 10/02/24 Fish Brown, JossueD [address] [place] [address] Pharmacist Internal Medicine 07/07/23 documented as of this encounter
--- OUTSIDE RECORDS SUMMARY | 2025-04-15 17:52 | XMS_ITS | Encounter Summary ---
Author Organization [employer] Address [address] [facility] 7t [place] [address] Care Team Providers Care Meter Reader Name Role Phone Julio Crockett MD Primary Care Provide r Fish Brown PharmD Unavailable + Jaylin Santiago DO Primary Care Provider [phone] Star Contreras MD Primary Care Provider [phone] Reason for Visit * Reason Comments Med Refill Encounter Details Date Type Department Care Team (Late st Contact Info) Description 05/03/2023 Refill [facility] [address] [place], [place] [phone] Naren Skaggs MD [address] [place] [address] Social History Tobacco Use Types Packs/Day Years [...] Description 06/25/2025 9:15 AM EST Office Visit [facility] [address] [place] [address] Name, MD Star [address] [place] [address] documented as of this encounter Goals Goal Patient Goal Type Associated Problems Recent Progress Patient-Stated? Author Blood Pressure < 140/90 Blood Pressure 137/78(2024 9:48 AM EST) No Fish Brown PharmMitchel HDL > 40 Result Component No Fish Brown PharmD Note: Eat foods that help with (HDL) good cholesterol. Beans, avocado, olive oil, & whole grains documented as of this encounter Visit Diagnoses Not on filedocumented in this encounter Additional Health Concerns Assessment Noted Time PHQ-9 Depression Total Score: 2 09/17/19 10:38 AM EDT documented as of this encounter Care Teams Meter Reader Relationship Specialty Start Date End Date Julio Crockett MD [address] [place] [address] PCP - General Internal Medicine 12/26/13 11/28/23 Jaylin Santiago DO [address] [place] [address] PCP - General Family Medicine 11/29/23 10/01/24 Star Contreras MD [address] [place], [place] [phone] PCP - General Internal Medicine 10/02/24 Fish Brown PharmD [address] [place], [place] [phone] Pharmacist Internal Medicine 07/07/23 documented as of this encounter
--- OUTSIDE RECORDS SUMMARY | 2025-04-15 17:52 | XMS_ITS | Clinical Summary ---
Author Organization [facility] Address [address] [place] [address] Care Team Providers Care Principal Administrative Clerk Name Role Phone Julio Egan Primary Care Provider + Allergies No known active allergies Medications fluocinolone acetonide oiL 0.01 % drops Place 4 drops into the right ear 2 times a day as needed (itching). 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 Encounters Date Type Department Care Team Description 04/03/2025 10:38 AM EST - 04/03/2025 11:59 PM [facility] Encounter [facility] [address] [place] [address] Mat Weaver: Joaquim Nicole MD Vinik, IS[facility] Stern Perforation of left tympanic membrane (Primary Dx) Discharge Disposition: Home or Self Care () 03/26/2025 Transcribe Orders [facility] [address] [place] [address] Jaylin Santiago Tympanic membrane perforation, left (Primary Dx); Ear itching from Last 3 Months Immunizations Immunization Administration Dates Next Due Diphtheria, Tetanus Toxoids and Acellular Pertussis Vaccine, 5 Pertussis Antigens 11/14/2014 Haemophilus Influenzae Type B Vaccine, PRP-OMP Conjugate 01/23/2015,11/14/2014 Hepatitis B adult (ENGERIX-B /RECOMBIVAX HB ADULT) vaccine 1 mL IM 01/23/2015,11/14/2014 INFLUENZA, SPLIT VIRUS, TRIVALENT, PF 01/23/2015 Pneumococcal Polysaccharide Vaccine, 23 Valent 0 11/14/2014 Poliovirus Vaccine, Inactivated 01/23/2015,11/14 Tetanus Toxoid, Reduced Diph theria Toxoid, and Acellular Pertussis Vaccine, Adsorbed 01/23/2015 Family History Medical History Relation Name Comments Other Father Family History of malignant neoplasm Other Sister Family History of arthritis Relation Name Status Comments Father Sister Social History Tobacco Use Types Packs/Day Years Used Date Smoking Tobacco: Former Comments:: Sex and Gender Information Value Date Recorded Sex Assigned at Male 04/02/2025 10:58 AM EST Legal Sex Male 7:27 AM EDT Gender Identity Male 04/02/2025 10:58 AM EST Sexual Orientation Not on file Last Filed Vital Signs Vital Sign Reading Time Taken Comments Blood Pressure 148/102 11/17/2016 3:51 PM EDT Pulse 65 11/17/2016 3:51 PM EDT Temperature 36.7 C (98.1 F) 03/30/2016 12:49 PM EST Respiratory Rate - - Oxygen Saturation 99% 08/04/2015 9:35 AM EDT Inhaled Oxygen Concentration - - Weight 76.2 kg (168 lb) 11/17/2016 3:51 PM EDT Height 175.3 cm (5' 9 ) 11/17/2016 3:51 PM EDT Body Mass Index 24.81 11/17/2016 3:51 PM EDT Plan of Treatment Upcoming Encounters Date Type Department Care Team (Late st Contact Info) Description 05/30/2025 11:20 AM EST Procedure visit [facility] [address] [place] [address] 05/30/2025 12:00 PM EST Appointment [facility] [address] [place] [address] Mat Weaver: Skylar Hawley MD [address] [place] [phone] Health Maintenance Due Date Last Done Comments Basic Metabolic Panel 1957 Cologuard 1957 Colon Cancer Screening 1957 Colonoscopy 1957 FOBT / Fit Test [address] Lung Cancer Screening (Baseline) 08/08/2007 DTaP,Tdap,and Td Vaccines (1 - Tdap) 11/27/2018 11/26/2018, 02/03/2016, 01/23/2015, Additional history exists COVID-19 Vaccine (3 - Pfizer risk series) 01/15/2021 12/18/2020, 11/27/2020 Alcohol/Substance Use Screening 04/25/2024 Depression Screening and Follow-Up 04/25/2024 Health Care Proxy Review 04/25/2024 Social Drivers of Health Valerie ual Screening 04/25/2024 Influenza Vaccine (#1) 2024 , 01/25/2023, 02/15/2022, Additional history exists Fall Risk Screening 04/03/2026 04/03/2025 Hepatitis B Vaccines Completed 10/21/2009, 05/20/2009, 04/17/2009 Zoster Vaccines Completed 09/18/2021, 06/26/2021 Pneumococcal Vaccine: 50+ Years Completed 06/10/2023, 06/18/2013, 04/21/2012 RSV Vaccine (60+ years old a nd patients) Completed 06/10/2023 Hepatitis C Screening Completed 11/29/2023 Insurance [employer] [facility] Care Teams Principal Administrative Clerk Relationship Specialty Start Date End Date Julio Egan [address] [place] [address] PCP - General 11/11/16
--- OUTSIDE RECORDS SUMMARY | 2025-04-15 17:52 | XMS_ITS | Encounter Summary ---
Author Organization [employer] Address 75 [facility] 7t [place] [address] Care Team Providers Care Safety Administrator Name Role Phone Fish Brown PharmD Unavailable [phone] Jaylin Santiago DO Primary Care Provider [phone] Name, Star HAYES Primary Care Provider [phone] Reason for Visit * Reason Comments Med Refill Encounter Details Date Type Department Care Team ([facility] st Contact Info) Description 04/17/2024 Refill [facility] [address] [place], [place] [phone] Julio Crockett MD [address] [place], [place] [phone] Primary hypertension Social History Tobacco Use Types [...] Description 06/25/2025 9:15 AM EST Office Visit [facility] [address] [place] [address] Name, MD Star [address] [place] [address] documented as of this encounter Goals Goal [...] documented as of this encounter Care Teams Safety Administrator Relationship Specialty Start Date End Date Jaylin Santiago DO [address] [place] [address] PCP - General Family Medicine 11/29/23 10/01/24 Name, MD Star [address] [place], [place] [phone] PCP - General Internal Medicine 10/02/24 Fish Brown, JossueD [address] [place] [address] Pharmacist Internal Medicine 07/07/23 documented as of this encounter
--- OUTSIDE RECORDS SUMMARY | 2025-04-15 17:52 | XMS_ITS | Encounter Summary ---
Author Organization [employer] Address [address] [place] [address] 7 [place] [address] Care Team Providers Care Brine Tank Separator Operator Name Role Phone Julio Crockett MD Primary Care Provide r Fish Brown PharmD Unavailable +- Jaylin Santiaog DO Primary Care Provider [phone] Star Contreras MD Primary Care Provider [phone] Encounter Details Date Type Department Care Team (Late st Contact Info) Description 09/02/2022 Abstract [facility] [address] [place] [address] Julio Crockett MD [address] [place] [address] [phone] Social History Tobacco Use Types Packs/Day Years [...] Description 06/25/2025 9:15 AM EST Office Visit [facility] [address] [place] [address] [phone] Star Contreras MD [address] [place] [address] documented as of this encounter Goals Goal [...] on filedocumented in this encounter Care Teams Brine Tank Separator Operator Relationship Specialty Start Date End Date Julio Crockett MD [address] [place] [address] PCP - General Internal Medicine 12/26/13 11/28/23 Jaylin Santiago DO [address] [place] [address] PCP - General Family Medicine 11/29/23 10/01/24 Star Contreras MD [address] [place] [address] PCP - General Internal Medicine 10/02/24 Fish Brown PharmD [address] [place] [address] Pharmacist Internal Medicine 07/07/23 documented as of this encounter
--- OUTSIDE RECORDS SUMMARY | 2025-04-15 17:52 | XMS_ITS | Encounter Summary ---
Author Organization [employer] Address 75 [facility] 7t [place] [address] Care Team Providers Care Transit Planning Director Name Role Phone Fish Brown PharmD Unavailable [phone] Name, Star HAYES Primary Care Provider [phone] Encounter Details Date Type Department Care Team ([facility] st Contact Info) Description 04/05/2025 Orders Only [facility] [address] [place] [address] Sadie Thapa MD [address] [place] [address] Macrocytosis (Primary Dx) Social History Tobacco Use Types Packs/Day Years [...] Description 06/25/2025 9:15 AM EST Office Visit [facility] [address] [place] [address] Name, MD Star [address] [place] [address] Scheduled Orders Name Type Priority Associated Diagnoses Orde r Schedule Vitamin B12/Folate, Serum Panel Lab Routine Macrocytosis Expected: 04/05/2025, Expires: 04/05/2026 documented as of this encounter Goals Goal Patient Goal Type Associated Problems Recent Progress Patient-Stated? Author Blood Pressure < 140/90 Blood Pressure 137/78(2024 9:48 AM EST) No Fish Brown PharmD HDL > 40 Result Component No Fish Brown PharmD Note: Eat foods that help with (HDL) good cholesterol. Beans, avocado, olive oil, & whole grains documented as of this encounter Visit Diagnoses Diagnosis Macrocytosis- Primary Other specified diseases of blood and blood-forming organs documented in this encounter Additional Health Concerns Assessment Noted Time PHQ-9 Depression Total Score: 0 04/09/20 24 11:43 AM EST documented as of this encounter Care Teams Transit Planning Director Relationship Specialty Start Date End Date Name, MD Star [address] [place] [address] PCP - General Internal Medicine 10/02/24 Fish Brown PharmD [address] [place] [address] Pharmacist Internal Medicine 07/07/23 documented as of this encounter
--- OUTSIDE RECORDS SUMMARY | 2025-04-15 17:52 | XMS_ITS | Patient Health Record ---
Author Organization [facility] Address [address] [place] [address] Care Team Providers Care Math And Science Division Chair Name Role Phone Maddy King MD, Julio Primary Care Provide r Unavailable Ahmet Wynn Jr Unavailable [phone] Reason For Referral No Information Medications Medication SIG (Take, Route, Frequency, Duration) Notes Start Date End Date Status Baclofen 10 MG Tablet 1 tablet with food or milk Orally as needed Active ProAir HFA 108 (90 Base) MCG/ACT Aerosol Solution 2 puffs as needed Inhalation every 6 hrs Active Naprosyn 500 mg 1 tablet with food o r milk Orally Twice a day Active MiraLax (colon prep) 8.3 ounce ((238) grams mixed with Gatorade or Crystal Light orally begin at 5:00 p.m. the day before the procedure; Duration: 1 day 04/12/2019 Active Osteo Bi-Flex Adv Double St - Tablet as directed Orally every 12 hours Active amLODIPine Besylate 5 MG Tablet 1 tablet Orally Once a day; Duration: 30 day(s) Active Lisinopril 30 MG Tablet 1 tablet Orally Once a day; Duration: 30 day(s) Active Flonase Allergy Relief 50 MCG/ACT Suspension 1 spray in each nostril Nasally Once a day; Duration: 30 day(s) Active PriLOSEC OTC 20 MG Tablet Delayed Release 1 tablet 30 minutes before morning meal Orally Once a day Active Mometasone Furoate 0.1 % Cream 1 application Externally Once a day Active Acetaminophen 325 MG Tablet 2 tablet as needed Orally every 6 hrs Active Lotrisone 1-0.05 % Cream 1 application E xternally Twice a day Active Benadryl Allergy 25 MG Tablet 1 tablet at bedtime as needed Orally Once a day; Duration: 30 day(s) Active Triamcinolone Acetonide (PF) Active Immunizations Vaccine Route Administration Date Status Comme nts Influenza Unknown 12/24/2018 Administered Social History Tobacco Use: Social History Observation Description Date Details (start date - stop date) Former Smoker NA - NA Social History Drugs/Alcohol: Social Info Question Answer Notes Alcohol Screen Did you have a drink containing alcohol in the past year? No Points 0 Interpretation Negative Tobacco Use: Social Info Question Answer Notes Tobacco Use/Smoking Patient is a former smoker When did you stop smoking? age 18-22 How long has it been since you last smoked? 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) Problems Problem Type SNOMED Code ICD Code Onset Dates Problem Status W/U Status Risk Notes Problem Colon cancer screening (612832722) Colon cancer screening (Z12.11) Active confirmed Problem postpartum nurse current use of non-steroidal anti-inflammat ory drug (8758984834666 03) care home (current) use of non-steroidal anti-inflammat ories (NSAID) (Z79.1) Active confirmed Plan Of Treatment Future Test Test Name Order Date COLONOSCOPY 04/12/2019 Insurance Providers Payer Name Payer Address Payer Phone Subscriber Number Group Number Insured Name Patient Relationship to Insured Coverage Start Date Coverage End Date [facility] [address] [place] [phone] [id number] CONCHIS VAZQUEZ Self - patient is the insured Medical (General) History Medical History History ICD Code hypertension depression lumbar radiculopathy right bundle-branch block PPD positive chronic kidney disease lymphoma gastroesophageal reflux disease Surgical History Surgery Date(Month/Year) gallbladder tumor removed and biopsy
--- OUTSIDE RECORDS SUMMARY | 2025-04-15 17:52 | XMS_ITS | Clinical Summary ---
Author Organization [facility] Address [address] [address] Phone Care Team Providers Care Daytime Babysitter Name Role Phone Unavailable Primary Care Provider [...] time each day if needed 01/20/2021 Active [place]-3 Fatty Acids (FISH OIL OMEGA-3 PO) Take [...] Orders Only [facility]. [address] [place] [phone] Arturo Ruiz MD [address] [phone] Chronic kidney disease stage 2; Hypertensive renal disease; Hypokalemia 09/02/2025 1:30 PM EDT Office Visit [facility] [address] [phone] Arturo Ruiz MD [address] [phone] Health Maintenance Due Date Last Done Comments Colorectal Cancer Screening: Annual FOBT 2006 Colorectal Cancer Screening: Colonoscopy 2006 Colorectal Cancer Screening: Sigmoidoscopy 2006 Influenza Vaccine (#1) 2024 , 02/15/2022, 01/30/2021, Additional history exists Hepatitis B Vaccine Aged Out 01/23/2015, 11/14/2014, 10/21/2009, Additional history exists No longer eligible based on patient's age to complete this topic Pneumococcal Vaccine: 50+ Years Completed 06/10/2023, 11/14/2014, 06/18/2013, Additional history exists Pneumococcal Vaccine: Peds (0 to 5 Years) and At-Risk Patients (6 to 49 Years) Discontinued 06/10/2023, 11/14/2014, 06/18/2013, Additional history exists Insurance Medicaid [place] [employer] MCR Adv PPO ([id number])
--- OUTSIDE RECORDS SUMMARY | 2025-04-15 17:52 | XMS_ITS | Encounter Summary ---
Author Organization [employer] Address [address] [place] [address] [address] [place] [address] Care Team Providers Care Heavy Antiarmor Weapons Infantryman Name Role Phone Fish Brown PharmD Unavailable [phone] Jaylin Santiago DO Primary Care Provider + [phone] Name, Star HAYES Primary Care Provider [phone] Reason for Visit * Reason Onset Date Comments Nurse Triage 09/19/2024 Encounter Details Date Type Department Care Team ([facility] st Contact Info) Description 09/19/2024 Telephone [facility] [address] [place] [address] Jaylin Santiago DO [address], [place] [id number] Nurse Triage Social History Tobacco Use Types [...] 09/19/2024 4:16 PM EDT Triage call with [facility] [employer] crm developer [place] [id number] Pt reports has been having a cough [...] ASK apt with DR. Ruiz 09/25/24 @ [id number]. Pt agrees with disposition and insurance is [...] PM EDT Requesting [place] , [facility] [place]. thanks * Telephone Encounter - Charity Garza - 09/19/2024 3:36 PM EDT Patient calling to report ED visit on : Date: 09/19 Hospital: [facility] Seen for: Back Pain Symptomatic Yes *if yes message should go to Triage Patient advised will forward to team nurse for follow up [phone] [place]ape [place]de[place] fyi: Pt requesting referral for Physical Therapy. documented in this encounter Plan of Treatment Upcoming Encounters Date Type Department Care Team (Late st Contact Info) Description 06/25/2025 9:15 AM EST Office Visit [facility] [address] [place] [id number] Name, MD Star [address] [place] [address] documented as of this encounter Goals Goal Patient Goal Type Associated Problems Recent Progress Patient-Stated? Author Blood Pressure < 140/90 Blood Pressure 137/78(2024 9:48 AM EST) No Fish Brown, PharmMitchel HDL > 40 Result Component No Fish Brown, PharmMitchel Note: Eat foods that help with (HDL) good cholesterol. Beans, avocado, olive oil, & whole grains documented as of this encounter Visit Diagnoses Not on filedocumented in this encounter Additional Health Concerns Assessment Noted Time PHQ-9 Depression Total Score: 0 04/09/20 24 11:43 AM EST documented as of this encounter Care Teams Heavy [employer]arm[employer] Weapons Infantryman Relationship Specialty Start Date End Date Jaylin Santiago DO [address] [place] [address] PCP - General Family Medicine 11/29/23 10/01/24 Name, MD Star [address] [place] [address] PCP - General Internal Medicine 10/02/24 Fish Brown PharmD [address] [place] [address] Pharmacist Internal Medicine 07/07/23 documented as of this encounter
== END 2025-04-15 15:57 | disposition home or self-care (01) ==
LOC: HO.HCS 14:26
PROVIDERS: Visit Provider Nurse Practitioner Family
DX: I45.2 Bifascicular block (principal); I10 Essential (primary) hypertension
CPT/HCPCS: 93010; 99213; G2211

== ENCOUNTER → 2025-04-15 14:25 | Outpatient (BNVA) | payer MEDICARE, SELFPAY | PROVIDERS: Visit Provider Nurse Practitioner Family | DX: I45.2 Bifascicular block (principal); I10 Essential (primary) hypertension; Z79.899 Other long term (current) drug therapy | CPT/HCPCS: 93005; 99212 ==